=== PATIENT | male | born 1980 | race Caucasian/White ===

== ENCOUNTER 2022-12-30 12:27 | Emergency (ER) | payer MEDICAID, SELFPAY ==
[2022-12-30 12:35] VITALS: BP 132/84; PULSE 85; RESP 16; TEMP 36.8; O2SAT 99; BMI 29.1
--- NOTE | 2022-12-30 12:47 | CRLHL7_ITS ---
For Patients: As a result of the Century Cures Act, medical imaging exams and procedure reports are released immediately into your electronic medical record. You may view this report before your referring provider. If you have questions, please contact your health care provider. INDICATION: Abdominal pain, history of Ghazal and pancreatitis. TECHNIQUE: Axial images were obtained from the diaphragm to the pubic symphysis. Reformats were obtained in the coronal and sagittal plane. IV Contrast: 89 cc Isovue 370 Oral Contrast: None COMPARISON: Abdomen and pelvis CT 03/18/2021 FINDINGS: Lower chest: Noncalcified pulmonary nodule left lower lobe measuring 8 millimeters, stable compared to the prior exam (series 3, image 29). Liver: Diffusely decreased density of the liver with multiple hepatic cysts redemonstrated. Gallbladder and bile ducts: Unremarkable. No stones or inflammation. No biliary dilatation. Spleen: Unremarkable. Normal in size without mass. Pancreas: Unremarkable. No mass or inflammation. Adrenal glands: Unremarkable. No nodules. Kidneys: Unremarkable. No masses, stones, or hydronephrosis. Vasculature: Unremarkable. GI tract: The stomach is decompressed. No dilated loops of large or small intestine. Terminal ileum unremarkable. Appendix unremarkable. Pelvis: Previously noted prostatic cyst is significantly decreased in size in the range of 1-2 millimeters on today`s exam. Mild prostatic calcification. Bones: Unremarkable for age. IMPRESSION: 1. No dilated loops of large or small intestine. No localizing inflammation. 2. Moderate hepatic steatosis. Please note that all CT scans at this facility use dose modulation, iterative reconstruction, and/or weight-based dosing when appropriate to reduce radiation dose to as low as reasonably achievable. Dictated by Terrell Sousa MD @ 12/30/2022 2:12:13 PM (Electronically Signed)
--- NOTE | 2022-12-30 12:57 | ED_ITS ---
HPI - General Adult General Date Seen: 12/30/22 Chief complaint: Abdominal Pain Stated complaint: LT side into back stomach/abdomen pain Time Seen by Provider: 12/30/22 12:28 Source: patient Mode of arrival: ambulatory Limitations: no limitations History of Present Illness HPI narrative: Patient is a 42-year-old male who is status post Ghazal fundoplication in 2018. He says since then he has had periods of abdominal pain sometimes requiring hospitalization. Review of his [place] records show multiple ER visits for abdominal pain, I do not see any hospitalizations here nor any history of pancreatitis, but he does apparently also go to the ER in [place] as well as [place]. Here, he has always had normal workups, without anemia, normal CT scans, normal labs. He presents today with typical symptoms, about 1 week of some looser stools, decreased appetite, fatigue, intermittent lightheadedness, abdominal distension, couple days of worsening abdominal pain worse in the left lower quadrant. He has had occasional stools which are black in color. He has had multiple endoscopies over the years which have been unremarkable. He is maintained on a PPI. He does not drink significantly and does not take significant NSAIDs. Related Data Home Medications Medication Instructions Recorded Confirmed omeprazole 20 mg capsule,delayed 20 mg PO QDAY 12/30/22 release Allergies Allergy/AdvReac Type Severity Reaction Status Date / Time No Known Drug Allergies Allergy Verified 12/30/22 12:38 Review of Systems Status of ROS: Reports: 10 or more systems reviewed and unremarkable except as noted in History and below [facility] Social History Smoking Status: Never smoker How often do you have a drink containing alcohol: monthly or less How often do you have six or more drinks on one occasion: Never AUDIT-C Alcohol total score: 1 Non-prescribed substance use: denies use Exam Narrative: Exam Narrative: Vital signs as noted above. In general, an alert, well-appearing patient. Looks comfortable. Head: Normocephalic, atraumatic. Eyes: Pupils are equal reactive. Extraocular movements are full. Conjunctivae are normal. ENT: Mucous membranes are moist. Throat is normal. Neck: Supple without lymphadenopathy. Heart: Regular rate and rhythm. No murmur or rub. Lungs: Clear bilaterally. No increased work of breathing, crackles or wheezes. Abdomen: Soft and nondistended at this time. Seems minimally tender to palpation, no rebound guarding or rigidity. Bowel sounds present. Extremities: Well perfused. No edema. No calf tenderness. Pulses intact. Neurologic: Patient is alert and oriented to person and place. Speech is fluent. Face is symmetric. Moves all extremities equally. Affect: Normal. Skin: Warm and dry. Well perfused. Const: Vital Signs, click to edit/add: Vital Signs - 24 hr 12/30/22 12:35 12/30/22 14:07 Temperature 98.2 F Pulse Rate [Pulse Oximeter] 85 85 Respiratory Rate 16 [facility] 132/84 119/78 Pulse Oximetry 99 96 Oxygen Delivery Me thod Room Air Room Air Documenting provider has reviewed patient's vital signs: yes Course Course Hospital Course: Patient had an IV placed here was given a L of normal saline. I checked normal labs including a CBC which showed white blood cell count of 5.9, hemoglobin was stable at 15.2. Platelets normal. Other labs were essentially normal. His lipase was mildly elevated at 370 and his ALT was mildly elevated at 83 but all other labs were normal. Metabolic panel showed normal electrolytes and normal creatinine, lactate was 0.9, CRP was 0.6, remaining LFTs were normal. Urinalysis was entirely negative. CT scan by my review did not show any evidence of diverticulitis, bowel obstruction, or other significant inflammatory changes. His abdominal exam is benign. I have reviewed all of his records and he has multiple presentations to the ER with similar symptoms. His lipase is very minimally elevated, he does not have any evidence of inflammatory changes surrounding the pancreas on CT and I suspect that this does not represent kelly creatitis, but I did discuss this with him. I would recommend sticking with the bland diet are clear liquids for the next day or 2 and see how he does. If symptoms are worsening then I would have him come back to the ER for further evaluation. Otherwise, he says he has an appointment with Dr. Mora on which is 48 hours for now. He has historically followed with GI at [facility], he says the doctor he had been seeing their got and left so he does not have a specific GI doctor there. I have encouraged him to reestablish with someone there as he seems to have frequent bouts of these abdominal pain flares and I think needs to have a contact Gastroenterology as well. He also was scheduled to go to [place] tomorrow and requested a note for medical excused from the strip so that he can be reimbursed for his flight. Vital Signs Vital signs: Initial Vital Signs Temperature 98.2 F 12/30/22 12:35 Temperature Source Temporal Artery Scan 12/30/22 12:35 Pulse Rate 85 12/30/22 12:35 Respiratory Rate 16 12/30/22 12:35 Blood Pressure 132/84 12/30/22 12:35 Blood Pressure Mean 100 12/30/22 12:35 Blood Pressure Position Sitting 12/30/22 12:35 Pulse Oximetry 99 12/30/22 12:35 Oxygen Delivery Method Room Air 12/30/22 12:35 Vital Signs Temperature 98.2 F 12/30/22 12:35 Pulse Rate 85 12/30/22 12:35 Respiratory Rate 16 12/30/22 12:35 Blood Pressure 132/84 12/30/22 12:35 Pulse Oximetry 99 12/30/22 12:35 Oxygen Delivery Method Room Air 12/30/22 12:35 Temperature 98.2 F 12/30/22 12:35 Pulse Rate 85 12/30/22 14:07 Respiratory Rate 16 12/30/22 12:35 Blood Pressure 119/78 12/30/22 14:07 Pulse Oximetry 96 12/30/22 14:07 Oxygen Delivery Method Room Air 12/30/22 14:07 Medical Decision Making Lab Data Labs: Lab Results 12/30/22 12/30/22 12/30/22 Range/Units 12:48 12:55 13:00 WBC 5.88 (4.50-11.00) K/uL RBC 5.14 (4.30-5.90) m/uL Hgb 15.2 (13.5-17.5) gm/dL Hct 44.8 (37.0-53.0) % MCV 87 (80-100) fL MCH 30 (26-34) pg MCHC 34 (32-36) gm/dL RDW Coeff of Lizzette 12.9 (11.5-15.5) % Plt Count 193 (140-440) K/uL Neut % (Auto) 51.8 (42.0-72.0) % Lymph % (Auto) 37.8 (20-44) % [place] % (Auto) 7.7 (0.0-11.0) % Eos % (Auto) 2.0 (0.0-7.0) % Baso % (Auto) 0.5 (0.0-3.0) % Neut # (Auto) 3.05 (1.7-7.0) K/uL Lymph # (Auto) 2.22 (0.90-2.90) K/uL [place] # (Auto) 0.50 (0.00-0.90) K/UL Eos # (Auto) 0.12 (0.00-0.50) K/uL Baso # (Auto) 0.03 (0.00-0.30) K/uL Sodium 140 (135-149) mmol/L Potassium 4.1 (3.6-5.1) mmol/L Chloride 106 (96-114) mmol/L Carbon Dioxide 24 (20-32) mmol/L BUN 14 (5-24) mg/dL Creatinine 0.9 (0.5-1.5) mg/dL Estimated Creat Clear 94.52 Estimated GFR 108 ml/min Glucose 96 (60-115) mg/dL Lactate 0.9 (0.5-1.9) mmol/L Calcium 8.8 (8.4-10.6) mg/dL Total Bilirubin 0.6 (0.1-1.5) mg/dL Direct Bilirubin 0.2 (0.0-0.5) mg/dL AST 34 (12-35) U/L ALT 83 H (4-50) U/L Alkaline Phosphatase 55 (40-150) U/L C-Reactive Protein 0.6 (0.5-1.0) mg/dL Total Protein 7.5 (6.0-8.3) g/dL Albumin 4.5 (3.3-5.0) g/dL Lipase 370 H (23-300) U/L Urine Color Yellow (Yellow) Urine Appearance Clear (Clear) Urine pH 7.0 (5.0-8.5) Ur Specific [place] 1.020 (1.000-1.030) Urine Protein Negative (Negative) Urine Glucose (UA) Negative (Negative) Urine Ketones Negative (Negative) Urine Blood Negative (Negative) Urine Nitrite Negative (Negative) Urine Bilirubin Negative (Negative) Urine Urobilinogen 0.2 (0.2-1.0) Ur Leukocyte Esterase Negative (Negative) Urine RBC 0-2 (0-2) Urine WBC 0-2 (0-5) Ur Squamous Epith Cells Few (None-Few) Urine Bacteria None (None) Discharge Plan Discharge Clinical Impression: Abdominal pain Patient Disposition: Home, Self-Care Condition: Stable Instructions: Abdominal Pain (ED) Additional Instructions: GI follow-up for persistent symptoms; recommend re-establishing care with [facility]. See Dr. Mora on as planned. Continue current medications, okay to take your pantoprazole twice a day for the next week or so if you would like. Continue bland diet for the next several days. Advance as able. Prescriptions: No Action omeprazole 20 mg capsule,delayed release(/EC) 20 mg PO QDAY Follow Up/Referrals: Trevon Mora MD [Primary Care Provider] - Stand Alone Forms: [employer] Info Instructions
[2022-12-30 13:07] LABS: Lactate* 0.9 mmol/L (0.5-1.9)
[2022-12-30 13:23] LABS: Albumin* 4.5 g/dL (3.3-5.0); Chloride* 106 mmol/L (96-114); Sodium* 140 mmol/L (135-149)
[2022-12-30 13:24] LABS: Potassium* 4.1 mmol/L (3.6-5.1)
[2022-12-30 13:26] LABS: Appearance Urine Clear (Clear); Bilirubin Urine Negative (Negative); Blood Urine Negative (Negative); Color Urine Yellow (Yellow); Glucose Urine Negative (Negative); Ketones Urine Negative (Negative); Leukocyte Esterase Urine Negative (Negative); Nitrite Urine Negative (Negative); Protein Urine Negative (Negative); Urobilinogen Urine 0.2 (0.2-1.0)
[2022-12-30 13:26] LABS: Creatinine* 0.9 mg/dL (0.5-1.5); Est. Creatinine Clearance* 94.52; Estimated Glomerular Filt Rate 108 ml/min
[2022-12-30 13:27] LABS: Alanine Aminotransferase* 83 U/L (4-50); Alkaline Phosphatase* 55 U/L (40-150); Aspartate Amino Transferase* 34 U/L (12-35); Bilirubin Direct* 0.2 mg/dL (0.0-0.5); Bilirubin Total* 0.6 mg/dL (0.1-1.5); Blood Urea Nitrogen* 14 mg/dL (5-24); Calcium* 8.8 mg/dL (8.4-10.6); Carbon Dioxide* 24 mmol/L (20-32); Glucose* 96 mg/dL (60-115); Lipase* 370 U/L (23-300); Total Protein* 7.5 g/dL (6.0-8.3)
[2022-12-30] MEDS: 0.9 % SODIUM CHLORIDE 1000 ml 1,000 ML IV (13:27)
[2022-12-30 13:29] LABS: C Reactive Protein* 0.6 mg/dL (0.5-1.0)
[2022-12-30 13:31] LABS: Basophils Absolute Auto 0.03 K/uL (0.00-0.30); Basophils Percent Auto 0.5 % (0.0-3.0); Eosinophils Absolute Auto 0.12 K/uL (0.00-0.50); Hematocrit 44.8 % (37.0-53.0); Hemoglobin* 15.2 gm/dL (13.5-17.5); Immature Granulocytes Abs Auto 0.01 K/uL (0.00-0.30); Immature Granulocytes Pct Auto 0.2 %; Lymphocytes Absolute Auto 2.22 K/uL (0.90-2.90); Lymphocytes Percent Auto 37.8 % (20-44); Mean Corpuscular HGB Conc 34 gm/dL (32-36); Mean Corpuscular Hemoglobin 30 pg (26-34); Mean Corpuscular Volume 87 fL (80-100); Monocytes Percent Auto 7.7 % (0.0-11.0); Neutrophils Absolute Auto 3.05 K/uL (1.7-7.0); Neutrophils Percent Auto 51.8 % (42.0-72.0); Platelet Count* 193 K/uL (140-440); RDW Coefficient of Variation % 12.9 % (11.5-15.5); Red Blood Count 5.14 m/uL (4.30-5.90); White Blood Count* 5.88 K/uL (4.50-11.00)
[2022-12-30 13:37] LABS: Slide Review Reflex No
[2022-12-30 14:03] LABS: RBC Urine 0-2 (0-2); Squamous Epithelial Cell Urine Few (None-Few); WBC Urine 0-2 (0-5)
[2022-12-30 14:07] VITALS: BP 119/78; PULSE 85; O2SAT 96
--- NOTE | 2022-12-30 14:48 | ED.NURSE ---
Pt's IV was DC'd, catheter appeared intact but appeared to have a small divot on the tip of the catheter. Temporary tourniquet applied to pt's L upper arm. IV catheter shown to 's Neeraj and Franklyn, both MD's examined and cleared catheter as intact and okay. Tourniquet removed from pt L arm.
== END 2022-12-30 14:52 | disposition home or self-care (01) ==
PROVIDERS: Emergency Provider Emergency Medicine; PCP Family Medicine
DX: R10.9 Unspecified abdominal pain (principal)
CPT/HCPCS: 36415; 74177; 80048; 80076; 81001; 83605; 83690; 85025; 86140; 99283; 99284; J7030; Q9967

== ENCOUNTER 2023-04-15 14:01 | Emergency (ER) | payer MEDICAID, SELFPAY ==
[2023-04-15] VITALS (8 sets, daily range): BP systolic 120; BP diastolic 78–84; PULSE 63–78; RESP 18; TEMP 36.8; O2SAT 94–98; BMI 29.1
--- NOTE | 2023-04-15 15:11 | ED.ABDPAIN ---
HPI - Abdominal Pain General Time Seen by Provider: 15:11 Date Seen: 04/15/23 Chief Complaint: Abdominal Pain Stated Complaint: Stomach bruising Time Seen by Provider: 04/15/23 14:15 Source: patient and RN notes reviewed Mode of arrival: ambulatory Limitations: no limitations History of Present Illness HPI narrative: Patient is a 42-year-old male coming in with a bruise noted on his left anterior abdominal wall without known trauma. Noticed yesterday for sure, maybe possibly Thursday, note today is Thursday. He has not noted bleeding of his gums with brushing his teeth or any nose bleeds but does think he maybe tasted some blood when he brushed his teeth this morning. He has not noticed bruising elsewhere. He feels underlying left abdominal pain and feels bloated, no nausea vomiting or diarrhea, no urinary symptoms. He has had a Willem fundoplication surgery done years ago. He feels the pain into the left flank area. He is on no blood thinners. He does do [employer] for profession but they finish there last project last week, really has not done anything strenuous that he can recollect. He states a couple of nurses looked at this and recommended he be evaluated. MD elicited complaint: abdominal pain Related Data Home Medications Medication Instructions Recorded Confirmed omeprazole 20 mg capsule,delayed 20 mg PO QDAY 12/30/22 04/15/23 release sucralfate 1 gram tablet (Carafate) 1 g PO TID 01/01/23 04/15/23 Previous Rx's Medication Instructions Recorded metoclopramide HCl 10 mg tablet 10 mg PO BID PRN nausea and 01/01/23 vomiting #60 tabs Allergies Allergy/AdvReac Type Severity Reaction Status Date / Time No Known Drug Allergies Allergy Verified 01/01/23 10:36 Review of Systems Status of ROS Reports: 6 or more systems reviewed and unremarkable except as noted in History and below [facility] Medical History (Updated 04/15/23 @ 17:07 by Mariah Waddell MD) Chronic abdominal pain ?R10.9 - Unspecified abdominal pain (ICD-10) ?G89.29 - Other chronic pain (ICD-10) Peptic ulcer ?K27.9 - Peptic ulcer, site unspecified, unspecified as acute or chronic, without hemorrhage or perforation (ICD-10) Paraesophageal hernia ?K44.9 - Diaphragmatic hernia without obstruction or gangrene (ICD-10) Nausea and vomiting (02/06/18) ?R11.2 - Nausea with vomiting, unspecified (ICD-10) Irritable bowel syndrome (10/18/17) ?K58.9 - Irritable bowel syndrome without diarrhea (ICD-10) Gastroesophageal reflux disease ?K21.9 - Gastro-esophageal reflux disease without esophagitis (ICD-10) Anxiety and depression (07/01/17) ?F41.9 - Anxiety disorder, unspecified (ICD-10) ?F32.A - Depression, unspecified (ICD-10) Surgical History (Updated 12/31/22 @ 13:18 by Radha Izquierdo ~ PSR) History of tonsillectomy (1984) ?Z90.89 - Acquired absence of other organs (ICD-10) History of repair of hiatal hernia (2017) ?Z98.890 - Other specified postprocedural states (ICD-10) ?Z87.19 - Personal history of other diseases of the digestive system (ICD-10) History of Ghazal fundoplication (02/06/18) ?Z98.890 - Other specified postprocedural states (ICD-10) History of esophagogastroduodenoscopy (EGD) ?Z98.890 - Other specified postprocedural states (ICD-10) History of colonoscopy ?Z98.890 - Other specified postprocedural states (ICD-10) Family History (Updated 12/31/22 @ 13:22 by Radha Izquierdo ~ PSR) Mother Heart disease Father Heart disease Maternal Grandmother Stomach cancer Grandmother Diabetes Social History (Updated 12/31/22 @ 13:23 by Radha Izquierdo ~ PSR) Narrative: Single, no kids, [facility] Non-smoker Social EtOH Smoking Status: Never smoker How often do you have a drink containing alcohol: monthly or less How often do you have six or more drinks on one occasion: Never AUDIT-C Alcohol total score: 1 Non-prescribed substance use: denies use Little interest or pleasure in doing things: not at all Feeling down, depressed, or hopeless: not at all Exam Const: Vital Signs, click to edit/add: Vital Signs - 24 hr 04/15/23 14:07 04/15/23 16:21 04/15/23 16:30 Temperature 98.2 F Pulse Rate 73 78 Pulse Rate [Pulse Oximeter] 78 Respiratory Rate 18 Blood Pressure Blood Pressure [Ri ght Upper Arm] 120/78 Pulse Oximetry 95 98 94 Oxygen Delivery Me thod Room Air 04/15/23 16:31 04/15/23 16:32 04/15/23 16:45 Temperature Pulse Rate 77 78 63 Pulse Rate [Pulse Oximeter] Respiratory Rate Blood Pressure 120/79 Blood Pressure [Ri ght Upper Arm] Pulse Oximetry 97 97 98 Oxygen Delivery Me thod Documenting provider has reviewed patient's vital signs: yes Course Course Hospital Course: Patient has a bruise on his left abdomen with associated underlying left abdominal pain. He is not on any anticoagulation, does not remember any trauma. Have discussed workup and he would like to proceed with CT imaging, reviewed with him that this would require IV contrast which she is fine with. Will also get baseline labs including CBC with coags. Rule out intra-abdominal pathology, underlying hematologic issues that could cause bruising or bleeding. Reevaluation(s) Time of Reevaluation #1: 17:04 Reevaluation #1: Reviewed labs had and provided copy of patient CT. Did review his CT report. There is a small abdominal wall hematoma but no evidence of any internal bleeding. Likewise his CBC and coagulation factors reveal no evidence of abnormality. He must have done something at some point to his abdominal wall causing some trauma that he does not remember. We did review the fatty liver, it did sound as if he was aware of this. Do recommend that this be followed through his primary care provider. Vital Signs Vital signs: Initial Vital Signs Temperature 98.2 F 04/15/23 14:07 Temperature Source Temporal Artery Scan 04/15/23 14:07 Pulse Rate 78 04/15/23 14:07 Respiratory Rate 18 04/15/23 14:07 Blood Pressure 120/78 04/15/23 14:07 Blood Pressure Mean 92 04/15/23 14:07 Blood Pressure Position Supine 04/15/23 14:07 Pulse Oximetry 95 04/15/23 14:07 Oxygen Delivery Method Room Air 04/15/23 14:07 Vital Signs Temperature 98.2 F 04/15/23 14:07 Pulse Rate 78 04/15/23 14:07 Respiratory Rate 18 04/15/23 14:07 Blood Pressure 120/78 04/15/23 14:07 Pulse Oximetry 95 04/15/23 14:07 Oxygen Delivery Method Room Air 04/15/23 14:07 Temperature 98.2 F 04/15/23 14:07 Pulse Rate 63 04/15/23 16:45 Respiratory Rate 18 04/15/23 14:07 Blood Pressure 120/79 04/15/23 16:31 Pulse Oximetry 98 04/15/23 16:45 Oxygen Delivery Method Room Air 04/15/23 14:07 MDM - Abdominal Pain Lab Data Attestation: I reviewed the patient's lab results. Labs: Lab Results 04/15/23 Range/Units 15:40 WBC 6.08 (4.50-11.00) K/uL RBC 5.08 (4.30-5.90) m/uL Hgb 15.0 (13.5-17.5) gm/dL Hct 44.4 (37.0-53.0) % MCV 87 (80-100) fL MCH 30 (26-34) pg MCHC 34 (32-36) gm/dL RDW Coeff of Lizzette 12.9 (11.5-15.5) % Plt Count 191 (140-440) K/uL Neut % (Auto) 55.1 (42.0-72.0) % Lymph % (Auto) 35.0 (20-44) % [place] % (Auto) 6.4 (0.0-11.0) % Eos % (Auto) 2.6 (0.0-7.0) % Baso % (Auto) 0.7 (0.0-3.0) % Neut # (Auto) 3.35 (1.7-7.0) K/uL Lymph # (Auto) 2.13 (0.90-2.90) K/uL [place] # (Auto) 0.40 (0.00-0.90) K/UL Eos # (Auto) 0.16 (0.00-0.50) K/uL Baso # (Auto) 0.04 (0.00-0.30) K/uL Abs Immat Gran (auto) 0.01 (0.00-0.30) K/uL Imm/Tot Granulo (auto) 0.2 % INR 0.91 (0.91-1.10) APTT 31 (23-33) Seconds Sodium 139 (135-149) mmol/L Potassium 4.0 (3.6-5.1) mmol/L Chloride 107 (96-114) mmol/L Carbon Dioxide 24 (20-32) mmol/L Anion Gap 8 (7-15) mEq/L BUN 12 (5-24) mg/dL Creatinine 0.8 (0.5-1.5) mg/dL Estimated Creat Clear 106.33 Estimated GFR 112 ml/min Glucose 90 (60-115) mg/dL Total Bilirubin 0.7 (0.1-1.5) mg/dL AST 42 H (12-35) U/L ALT 77 H (4-50) U/L Alkaline Phosphatase 58 (40-150) U/L C-Reactive Protein < 0.5 L (0.5-1.0) mg/dL Total Protein 7.7 (6.0-8.3) g/dL Albumin 4.5 (3.3-5.0) g/dL Imaging Data CT scan - abdomen: Attestation: I have reviewed the pertinent imaging results. Radiologist's impression: Patient: LIZ RIVERA Facility:?[facility] Patient ID:?[id number] Site Patient ID:?[id number]. Site :?[id number] Study:?CT Abdomen/Pelvis W/89CC [id number]/23/2023 4:00:00 PM Ordering Physician:Leni Lemus Final Report: INDICATION: Left-sided abdominal pain, extensive bruising without injury. TECHNIQUE: CT abdomen and pelvis acquired with 89 cc Isovue 370 IV contrast. COMPARISON: December 30, 2022. FINDINGS: Lower chest: Scattered atelectasis. Tiny hiatal hernia. Liver: Mosaic attenuation.. No suspicious masses. Gallbladder and bile ducts: Unremarkable. No stones or inflammation. No biliary dilatation. Pancreas: Unremarkable. No mass or inflammation. Spleen: Unremarkable. Normal in size. No masses. Adrenal glands: Unremarkable. No nodules. Kidneys: Unremarkable. No suspicious masses, stones, or hydronephrosis. GI tract: Mild colonic stool burden. Normal in caliber. No sign of mass or inflammation. Normal appendix. Vasculature: Abdominal aorta is normal in caliber. Mesenteric arteries are patent. Lymph nodes: No lymphadenopathy. Peritoneum/Abdominal Wall: Subtle focal left abdominal wall inflammation, possibly hematoma. No sign of mass or infiltration. No free air or significant free fluid. Pelvis: Mild prostatomegaly. Bones: Unremarkable for age. IMPRESSION: Subtle focal left abdominal wall inflammation, possibly hematoma. Otherwise, no acute intra-abdominal/pelvic abnormality or significant interval change compared to prior study.. Hepatic steatosis. Mild colonic stool burden. Please note that all CT scans at this facility use dose modulation, iterative reconstruction, and/or weight-based dosing when appropriate to reduce radiation dose to as low as reasonably achievable. Dictated by Sahil Barnes MD @ 04/15/2023 4:56:34 PM (Electronic Signature) Critical Care Time Critical Care Time Critical Care Time: No Discharge Plan Discharge Clinical Impression: Abdominal wall hematoma Patient Disposition: Home, Self-Care Condition: Stable Instructions: Hematoma (ED) Additional Instructions: This should resolve over the next 1-2 weeks. Can use Tylenol and/or ibuprofen for any discomfort. Ice to the abdominal wall can help as well. No restrictions on activity at this point. Activity Level: No Restrictions and Activity as Tolerated Prescriptions: No Action sucralfate [Carafate] 1 gram tablet 1 g PO TID metoclopramide HCl 10 mg tablet 10 mg PO BID PRN (Reason: nausea and vomiting) Qty: 60 1RF omeprazole 20 mg capsule,delayed release(DR/EC) 20 mg PO QDAY Follow Up/Referrals: Liz Mora MD [Primary Care Provider] - Stand Alone Forms: [email or web address] Info Instructions
--- NOTE | 2023-04-15 15:18 | CRLHL7_ITS ---
For Patients: As a result of the Century Cures Act, medical imaging exams and procedure reports are released immediately into your electronic medical record. You may view this report before your referring provider. If you have questions, please contact your health care provider. INDICATION: Left-sided abdominal pain, extensive bruising without injury. TECHNIQUE: CT abdomen and pelvis acquired with 89 cc Isovue 370 IV contrast. COMPARISON: December 30, 2022. FINDINGS: Lower chest: Scattered atelectasis. Tiny hiatal hernia. Liver: Mosaic attenuation.. No suspicious masses. Gallbladder and bile ducts: Unremarkable. No stones or inflammation. No biliary dilatation. Pancreas: Unremarkable. No mass or inflammation. Spleen: Unremarkable. Normal in size. No masses. Adrenal glands: Unremarkable. No nodules. Kidneys: Unremarkable. No suspicious masses, stones, or hydronephrosis. GI tract: Mild colonic stool burden. Normal in caliber. No sign of mass or inflammation. Normal appendix. Vasculature: Abdominal aorta is normal in caliber. Mesenteric arteries are patent. Lymph nodes: No lymphadenopathy. Peritoneum/Abdominal Wall: Subtle focal left abdominal wall inflammation, possibly hematoma. No sign of mass or infiltration. No free air or significant free fluid. Pelvis: Mild prostatomegaly. Bones: Unremarkable for age. IMPRESSION: Subtle focal left abdominal wall inflammation, possibly hematoma. Otherwise, no acute intra-abdominal/pelvic abnormality or significant interval change compared to prior study.. Hepatic steatosis. Mild colonic stool burden. Please note that all CT scans at this facility use dose modulation, iterative reconstruction, and/or weight-based dosing when appropriate to reduce radiation dose to as low as reasonably achievable. Dictated by Sahil Barnes MD @ 04/15/2023 4:56:34 PM (Electronically Signed)
[2023-04-15 15:48] LABS: Basophils Absolute Auto 0.04 K/uL (0.00-0.30); Basophils Percent Auto 0.7 % (0.0-3.0); Eosinophils Absolute Auto 0.16 K/uL (0.00-0.50); Eosinophils Percent Auto 2.6 % (0.0-7.0); Hematocrit 44.4 % (37.0-53.0); Immature Granulocytes Abs Auto 0.01 K/uL (0.00-0.30); Immature Granulocytes Pct Auto 0.2 %; Lymphocytes Absolute Auto 2.13 K/uL (0.90-2.90); Mean Corpuscular HGB Conc 34 gm/dL (32-36); Mean Corpuscular Hemoglobin 30 pg (26-34); Mean Corpuscular Volume 87 fL (80-100); Monocytes Percent Auto 6.4 % (0.0-11.0); Neutrophils Absolute Auto 3.35 K/uL (1.7-7.0); Neutrophils Percent Auto 55.1 % (42.0-72.0); Platelet Count* 191 K/uL (140-440); RDW Coefficient of Variation % 12.9 % (11.5-15.5); Red Blood Count 5.08 m/uL (4.30-5.90); White Blood Count* 6.08 K/uL (4.50-11.00)
[2023-04-15 15:54] LABS: Slide Review Reflex No
[2023-04-15 16:03] LABS: Albumin* 4.5 g/dL (3.3-5.0); Chloride* 107 mmol/L (96-114); Sodium* 139 mmol/L (135-149)
[2023-04-15 16:05] LABS: INR 0.91 (0.91-1.10); Prothrombin Time 12.8 Seconds
[2023-04-15 16:06] LABS: Anion Gap 8 mEq/L (7-15); Carbon Dioxide* 24 mmol/L (20-32); Creatinine* 0.8 mg/dL (0.5-1.5); Est. Creatinine Clearance* 106.33; Estimated Glomerular Filt Rate 112 ml/min; Partial Thromboplastin Time* 31 Seconds (23-33)
[2023-04-15 16:07] LABS: Alanine Aminotransferase* 77 U/L (4-50); Alkaline Phosphatase* 58 U/L (40-150); Aspartate Amino Transferase* 42 U/L (12-35); Bilirubin Total* 0.7 mg/dL (0.1-1.5); Blood Urea Nitrogen* 12 mg/dL (5-24); Glucose* 90 mg/dL (60-115); Total Protein* 7.7 g/dL (6.0-8.3)
[2023-04-15 16:11] LABS: C Reactive Protein* < 0.5 mg/dL (0.5-1.0)
[2023-04-17 15:02] LABS: Calcium* 8.8 mg/dL (8.4-10.6)
== END 2023-04-15 17:17 | disposition home or self-care (01) ==
PROVIDERS: Emergency Provider Family Medicine; PCP Family Medicine
DX: S30.1XXA Contusion of abdominal wall, initial encounter (principal)
CPT/HCPCS: 36415; 74177; 80053; 85025; 85610; 85730; 86140; 99283; 99284; Q9967

== ENCOUNTER 2023-07-29 08:11 | Outpatient (CLI) | payer MEDICAID, SELFPAY ==
--- NOTE | 2023-07-29 08:15 | CRLHL7_ITS ---
For Patients: As a result of the Century Cures Act, medical imaging exams and procedure reports are released immediately into your electronic medical record. You may view this report before your referring provider. If you have questions, please contact your health care provider. INDICATION: Cervical radiculopathy. TECHNIQUE: Multisequence MRI of the cervical spine without contrast. COMPARISON: None available. FINDINGS: Normal alignment. Vertebral body heights are maintained. Bone marrow signal intensity is within normal limits. Mild multilevel intervertebral disc height loss most pronounced at C5-C6. The cervical spinal cord is normal in signal intensity. The paraspinal soft tissues are unremarkable. Evaluation of the individual levels demonstrates: C2-C3 and C3-C4: No significant spinal canal or neural foraminal stenosis. C4-C5: Shallow symmetric disc bulge. No significant spinal canal or right neural foraminal narrowing. Mild left neural foraminal narrowing as sequela of uncovertebral hypertrophy. C5-C6: Small posterior disc osteophyte complex. Mild right and moderate left neural foraminal narrowing resulting from combined uncovertebral and facet joint arthrosis. C6-C7 and C7-T1: No significant spinal canal or neural foraminal stenosis. IMPRESSION: 1. Normal alignment with mild multilevel intervertebral disc height loss most pronounced at C5-C6. 2. Normal signal intensity of the cervical spinal cord with no significant spinal canal stenosis. 3. At C5-C6, moderate left neural foraminal narrowing. Dictated by Luis Armando Taylor MD @ 07/29/2023 4:25:20 PM (Electronically Signed)
== END 2023-07-29 08:12 | disposition home or self-care (01) ==
PROVIDERS: PCP Family Medicine; Visit Provider Family Medicine
DX: M54.12 Radiculopathy, cervical region (principal); M50.222 Other cervical disc displacement at C5-C6 level
CPT/HCPCS: 72141

== ENCOUNTER 2023-10-18 14:54 | Emergency (ER) | payer MEDICAID, SELFPAY ==
[2023-10-18 14:57] VITALS: BP 162/82; PULSE 87; RESP 20; TEMP 37; O2SAT 96; BMI 29.1
--- NOTE | 2023-10-18 15:07 | CT_ITS ---
Patient: LIZ RIVERA Facility:?[facility] Patient ID:?[id number] Site Patient ID:?[id number]. Site :?[id number] Study:?CT-Abdomen/Pelvis W/ 89CC [id number]/25/2024 3:31:44 PM Ordering Physician:Marc Barlow Final Report: INDICATION: Abdominal pain. TECHNIQUE: Multiple axial images were obtained from the diaphragm to symphysis pubis after administration of 89 mL is of Isovue-370 intravenously. Sagittal and coronal re- formatted images were obtained. COMPARISON: 04/14/2023 and 12/30/2022. FINDINGS: The visualized portion of the lung bases are clear. The liver is diffuse decreased attenuation consistent with fatty infiltration of the liver. There are stable cysts in the left lobe liver. The spleen, pancreas, gallbladder and adrenal glands are unremarkable. There is no mass or hydronephrosis in the kidneys. There is no evidence of a bowel obstruction. The appendix is unremarkable. The abdominal aorta is normal in caliber. There is no adenopathy. There is no free fluid in the abdomen or pelvis. IMPRESSION: No acute abnormality. Fatty infiltration of the liver. Hepatic cysts. Please note that all CT scans at this facility use dose modulation, iterative reconstruction, and/or weight-based dosing when appropriate to reduce radiation dose to as low as reasonably achievable. Dictated by Jeramie Montague MD @ 10/18/2023 4:00:46 PM Signed by:?Jeramie Montague MD @10/18/2023 4:00:46 PM (Electronic Signature)
--- NOTE | 2023-10-18 15:15 | ED.GENADULT ---
HPI - General Adult General Chief complaint: Abdominal Pain <López Barlow MD - Last Filed: 10/18/23 15:23> Stated complaint: Abdominal pain <López Barlow MD - Last Filed: 10/18/23 15:23> Time Seen by Provider: 10/18/23 15:01 <López Barlow MD - Last Filed: 10/18/23 15:23> History of Present Illness HPI narrative: 42-year-old male with chronic abdominal pain, who has had endoscopies, and a history of what he describes as ulcers in his stomach. He presents with abdominal pain on the left side of his abdomen been bad for few days, he denies bowel or bladder change denies vomiting blood he has not really had pancreatitis in the past by my review his chart. He has had medical care and [facility]. He typically gets bouts of this pain intermittently and will be quite significant he has a history of paraesophageal hernia and GE reflux. He reports his reflux has been quite significantly and he feels like he is ?choking and diff ?on his stomach acid. He is talking in full in labored unlabored sentences time. He reports today as pain around his left side of his abdomen radiating to his back and up to his left lower chest and down into his left thigh. He has had no weight loss, fevers, chills, blood in his stool or blood in vomit. He is on a proton pump inhibitor. <López Barlow MD - Last Filed: 10/18/23 15:23> Related Data Home medications: Home Medications Medication Instructions Recorded Confirmed omeprazole 20 mg capsule,delayed 20 mg PO QDAY 12/30/22 10/01/23 release sucralfate 1 gram tablet (Carafate) 1 g PO TID 01/01/23 10/01/23 Previous Rx's Medication Instructions Recorded metoclopramide HCl 10 mg tablet 10 mg PO BID PRN nausea and 01/01/23 vomiting #60 tabs celecoxib 200 mg capsule (Celebrex) 200 mg PO BID #60 caps 07/21/23 fluticasone propionate 50 1 spray intranasal Q12H #16 grams 08/06/23 mcg/actuation nasal spray,suspension levocetirizine 5 mg tablet 5 mg PO QPM allergy symptoms #30 08/06/23 tabs <López Barlow MD - Last Filed: 10/18/23 15:23> Allergies/adverse reactions: Allergies Allergy/AdvReac Type Severity Reaction Status Date / Time No Known Drug Allergies Allergy Verified 10/18/23 15:32 <López Barlow MD - Last Filed: 10/18/23 15:23> Review of Systems Status of ROS: Reports: 6 or more systems reviewed and unremarkable except as noted in History and below <López Barlow MD - Last Filed: 10/18/23 15:23> [facility] Medical History: Medical History Chronic abdominal pain ?R10.9 - Unspecified abdominal pain (ICD-10) ?G89.29 - Other chronic pain (ICD-10) Peptic ulcer ?K27.9 - Peptic ulcer, site unspecified, unspecified as acute or chronic, without hemorrhage or perforation (ICD-10) Paraesophageal hernia ?K44.9 - Diaphragmatic hernia without obstruction or gangrene (ICD-10) Nausea and vomiting (02/06/18) ?R11.2 - Nausea with vomiting, unspecified (ICD-10) Irritable bowel syndrome (10/18/17) ?K58.9 - Irritable bowel syndrome without diarrhea (ICD-10) Gastroesophageal reflux disease ?K21.9 - Gastro-esophageal reflux disease without esophagitis (ICD-10) Anxiety and depression (07/01/17) ?F41.9 - Anxiety disorder, unspecified (ICD-10) ?F32.A - Depression, unspecified (ICD-10) <López Barlow MD - Last Filed: 10/18/23 15:23> Surgical History: Surgical History History of tonsillectomy (1984) ?Z90.89 - Acquired absence of other organs (ICD-10) History of repair of hiatal hernia (2017) ?Z98.890 - Other specified postprocedural states (ICD-10) ?Z87.19 - Personal history of other diseases of the digestive system (ICD-10) History of Ghazal fundoplication (02/06/18) ?Z98.890 - Other specified postprocedural states (ICD-10) History of esophagogastroduodenoscopy (EGD) ?Z98.890 - Other specified postprocedural states (ICD-10) History of colonoscopy ?Z98.890 - Other specified postprocedural states (ICD-10) <López Barlow MD - Last Filed: 10/18/23 15:23> Family History: Family History Mother Heart disease Father Heart disease Maternal Grandmother Stomach cancer Grandmother Diabetes <López Barlow MD - Last Filed: 10/18/23 15:23> Social History: Social History Narrative: Single, no kids, City of [place], Non-smoker, Social EtOH What is your current living situation?: I presently have a place to live Problems where you live: no known problems In the past 12 months, utilities in danger of being shut off: no In past 12 months, lack of transportation kept you from medical appts, meetings, work, or getting things needed for daily living: no In the past 12 mos, have been you worried that your food would run out before you had money to buy more?: never true In the past 12 mos, the food you bought just didn't last and you didn't have money to buy more?: never true Smoking Status: Never smoker How often do you have a drink containing alcohol: monthly or less How often do you have six or more drinks on one occasion: Never AUDIT-C Alcohol total score: 1 Non-prescribed substance use: denies use How often does anyone, including family, friends and others, physically hurt you: never How often does anyone, including family, friends and others, insult or talk down to you: never How often does anyone, including family, friends and others, threaten you with harm: never How often does anyone, including family, friends and others, scream or curse at you: never Little interest or pleasure in doing things: not at all Feeling down, depressed, or hopeless: not at all <López Barlow MD - Last Filed: 10/18/23 15:23> Exam Narrative: Exam Narrative: Objective: Patient's vital signs are within normal limits other than the slightly hypertensive He is alert orient x3, noncyanotic, no evidence of scleral icterus HEENT unremarkable neck is supple chest is clear pulse regular abdomen nontender no masses no peritonitis extremities are no edema neurologic nonfocal. Skin is well perfused and warm and dry. <López Barlow MD - Last Filed: 10/18/23 15:23> Const: Vital Signs, click to edit/add: Vital Signs - 24 hr 10/18/23 14:57 10/18/23 15:45 Temperature 98.6 F Pulse Rate 93 Pulse Rate [Pulse Oximeter] 87 Respiratory Rate 20 Blood Pressure [Ri ght Upper Arm] 162/82 H Pulse Oximetry 96 93 Oxygen Delivery Me thod Room Air <López Barlow MD - Last Filed: 10/18/23 15:23> Vital Signs, click to edit/add: Vital Signs - 24 hr 10/18/23 14:57 10/18/23 15:45 Temperature 98.6 F Pulse Rate 93 Pulse Rate [Pulse Oximeter] 87 Respiratory Rate 20 Blood Pressure [Ri ght Upper Arm] 162/82 H Pulse Oximetry 96 93 Oxygen Delivery Me thod Room Air <Jefferson Merrill DO - Last Filed: 10/18/23 16:58> Course Vital Signs Vital signs: Initial Vital Signs Temperature 98.6 F 10/18/23 14:57 Temperature Source Temporal Artery Scan 10/18/23 14:57 Pulse Rate 87 10/18/23 14:57 Respiratory Rate 20 10/18/23 14:57 Blood Pressure 162/82 H 10/18/23 14:57 Blood Pressure Mean 108 H 10/18/23 14:57 Blood Pressure Position Sitting 10/18/23 14:57 Pulse Oximetry 96 10/18/23 14:57 Oxygen Delivery Method Room Air 10/18/23 14:57 Vital Signs Temperature 98.6 F 10/18/23 14:57 Pulse Rate 87 10/18/23 14:57 Respiratory Rate 20 10/18/23 14:57 Blood Pressure 162/82 H 10/18/23 14:57 Pulse Oximetry 96 10/18/23 14:57 Oxygen Delivery Method Room Air 10/18/23 14:57 Temperature 98.6 F 10/18/23 14:57 Pulse Rate 93 10/18/23 15:45 Respiratory Rate 20 10/18/23 14:57 Blood Pressure 162/82 H 10/18/23 14:57 Pulse Oximetry 93 10/18/23 15:45 Oxygen Delivery Method Room Air 10/18/23 14:57 <López Barlow MD - Last Filed: 10/18/23 15:23> Initial Vital Signs Temperature 98.6 F 10/18/23 14:57 Temperature Source Temporal Artery Scan 10/18/23 14:57 Pulse Rate 87 10/18/23 14:57 Respiratory Rate 20 10/18/23 14:57 Blood Pressure 162/82 H 10/18/23 14:57 Blood Pressure Mean 108 H 10/18/23 14:57 Blood Pressure Position Sitting 10/18/23 14:57 Pulse Oximetry 96 10/18/23 14:57 Oxygen Delivery Method Room Air 10/18/23 14:57 Vital Signs Temperature 98.6 F 10/18/23 14:57 Pulse Rate 87 10/18/23 14:57 Respiratory Rate 20 10/18/23 14:57 Blood Pressure 162/82 H 10/18/23 14:57 Pulse Oximetry 96 10/18/23 14:57 Oxygen Delivery Method Room Air 10/18/23 14:57 Temperature 98.6 F 10/18/23 14:57 Pulse Rate 93 10/18/23 15:45 Respiratory Rate 20 10/18/23 14:57 Blood Pressure 162/82 H 10/18/23 14:57 Pulse Oximetry 93 10/18/23 15:45 Oxygen Delivery Method Room Air 10/18/23 14:57 <Jefefrson Merrill DO - Last Filed: 10/18/23 16:58> Medications Administered Medications: Discontinued Medications Generic Name Dose Route Start Last Admin Trade Name Freq PRN Reason Stop Dose Admin Hydromorphone HCl 0.5 mg 10/18/23 15:07 10/18/23 15:39 Hydromorphone 0.5 Mg/0.5 Ml Inj IVP 10/18/23 15:08 0.5 mg ONCE ONE Administration Sodium Chloride 1,000 mls @ 6,000 mls/hr 10/18/23 15:15 10/18/23 16:33 0.9 % Sodium Chloride 1000 Ml IV 10/18/23 15:24 Infused .Q10M JAVIER Infusion Lorazepam 1 mg 10/18/23 15:07 10/18/23 15:39 Lorazepam 2 Mg/Ml Inj IVP 10/18/23 15:08 1 mg ONCE ONE Administration Pantoprazole Sodium 40 mg 10/18/23 15:07 10/18/23 15:39 Pantoprazole Sodium 40 Mg Inj IVP 10/18/23 15:08 40 mg ONCE ONE Administration <López Barlow MD - Last Filed: 10/18/23 15:23> Discontinued Medications Generic Name Dose Route Start Last Admin Trade Name Sachinq PRN Reason Stop Dose Admin Hydromorphone HCl 0.5 mg 10/18/23 15:07 10/18/23 15:39 Hydromorphone 0.5 Mg/0.5 Ml Inj IVP 10/18/23 15:08 0.5 mg ONCE ONE Administration Sodium Chloride 1,000 mls @ 6,000 mls/hr 10/18/23 15:15 10/18/23 16:33 0.9 % Sodium Chloride 1000 Ml IV 10/18/23 15:24 Infused .Q10M JAVIER Infusion Lorazepam 1 mg 10/18/23 15:07 10/18/23 15:39 Lorazepam 2 Mg/Ml Inj IVP 10/18/23 15:08 1 mg ONCE ONE Administration Pantoprazole Sodium 40 mg 10/18/23 15:07 10/18/23 15:39 Pantoprazole Sodium 40 Mg Inj IVP 10/18/23 15:08 40 mg ONCE ONE Administration <Jefferson Merrill DO - Last Filed: 10/18/23 16:58> Medical Decision Making MDM Narrative Medical decision making narrative: 42-year-old male with chronic abdominal pain history of GE reflux, irritable bowel syndrome, what he describes as peptic ulcer disease. At this point he is describing pain is left abdomen radiating to his chest and left anterior thigh not sure anatomically that makes sense, but I think it be mcclure to get an EKG which today shows normal sinus rhythm, incomplete right bundle-branch block he might have a left anterior fascicular block as well, will get a troponin level from the lab, electrolytes, will give him IV Protonix IV fluid, IV dilaudid and Ativan patient when asked if he would like to pursue full workup today he does wish to do that will schedule him for an EGD as an outpatient upcoming per his request I think that is reasonable given his history of reflux and ulcers secondly I think it be reasonable to get a CT scan of his abdomen and pelvis make sure there is no other pathology going on will check the EKG and troponin as mentioned above. <López Barlow MD - Last Filed: 10/18/23 15:23> Patient was signed out to me by Dr. Barlow pending troponin and CT scan read. His troponin was within normal limits. EKG appears similar previous EKGs on file CT scan returned showing no concerning abnormalities. There were hepatic cysts seen which I informed him about. Patient is otherwise doing well. Has an EGD scheduled and they will call him tomorrow. Patient is agreeable with discharge <Jefferson Merrill DO - Last Filed: 10/18/23 16:58> Lab Data Labs: Lab Results 10/18/23 Range/Units 15:10 WBC 6.76 (4.50-11.00) K/uL RBC 4.98 (4.30-5.90) m/uL Hgb 14.7 (13.5-17.5) gm/dL Hct 43.3 (37.0-53.0) % MCV 87 (80-100) fL MCH 30 (26-34) pg MCHC 34 (32-36) gm/dL RDW Coeff of Lizzette 12.9 (11.5-15.5) % Plt Count 197 (140-440) K/uL Neut % (Auto) 49.7 (42.0-72.0) % Lymph % (Auto) 40.5 (20-44) % Brewster % (Auto) 6.5 (0.0-11.0) % Eos % (Auto) 2.8 (0.0-7.0) % Baso % (Auto) 0.4 (0.0-3.0) % Neut # (Auto) 3.35 (1.7-7.0) K/uL Lymph # (Auto) 2.74 (0.90-2.90) K/uL Brewster # (Auto) 0.40 (0.00-0.90) K/UL Eos # (Auto) 0.19 (0.00-0.50) K/uL Baso # (Auto) 0.03 (0.00-0.30) K/uL Abs Immat Gran (auto) 0.01 (0.00-0.30) K/uL Imm/Tot Granulo (auto) 0.1 % Sodium 138 (135-149) mmol/L Potassium 3.7 (3.6-5.1) mmol/L Chloride 104 (96-114) mmol/L Carbon Dioxide 24 (20-32) mmol/L Anion Gap 10 (7-15) mEq/L BUN 13 (5-24) mg/dL Creatinine 0.9 (0.5-1.5) mg/dL Estimated Creat Clear 94.52 Estimated GFR 108 ml/min Glucose 104 (60-115) mg/dL Calcium 9.4 (8.4-10.6) mg/dL Total Bilirubin 0.5 (0.1-1.5) mg/dL Direct Bilirubin 0.2 (0.0-0.5) mg/dL AST 32 (12-35) U/L ALT 75 H (4-50) U/L Alkaline Phosphatase 70 (40-150) U/L Troponin I < 0.01 L (0.01-0.04) ng/mL C-Reactive Protein < 0.5 L (0.5-1.0) mg/dL Total Protein 7.4 (6.0-8.3) g/dL Albumin 4.3 (3.3-5.0) g/dL Amylase 83 (18-89) U/L <López Barlow MD - Last Filed: 10/18/23 15:23> Lab Results 10/18/23 Range/Units 15:10 WBC 6.76 (4.50-11.00) K/uL RBC 4.98 (4.30-5.90) m/uL Hgb 14.7 (13.5-17.5) gm/dL Hct 43.3 (37.0-53.0) % MCV 87 (80-100) fL MCH 30 (26-34) pg MCHC 34 (32-36) gm/dL RDW Coeff of Lizzette 12.9 (11.5-15.5) % Plt Count 197 (140-440) K/uL Neut % (Auto) 49.7 (42.0-72.0) % Lymph % (Auto) 40.5 (20-44) % Brewster % (Auto) 6.5 (0.0-11.0) % Eos % (Auto) 2.8 (0.0-7.0) % Baso % (Auto) 0.4 (0.0-3.0) % Neut # (Auto) 3.35 (1.7-7.0) K/uL Lymph # (Auto) 2.74 (0.90-2.90) K/uL Brewster # (Auto) 0.40 (0.00-0.90) K/UL Eos # (Auto) 0.19 (0.00-0.50) K/uL Baso # (Auto) 0.03 (0.00-0.30) K/uL Abs Immat Gran (auto) 0.01 (0.00-0.30) K/uL Imm/Tot Granulo (auto) 0.1 % Sodium 138 (135-149) mmol/L Potassium 3.7 (3.6-5.1) mmol/L Chloride 104 (96-114) mmol/L Carbon Dioxide 24 (20-32) mmol/L Anion Gap 10 (7-15) mEq/L BUN 13 (5-24) mg/dL Creatinine 0.9 (0.5-1.5) mg/dL Estimated Creat Clear 94.52 Estimated GFR 108 ml/min Glucose 104 (60-115) mg/dL Calcium 9.4 (8.4-10.6) mg/dL Total Bilirubin 0.5 (0.1-1.5) mg/dL Direct Bilirubin 0.2 (0.0-0.5) mg/dL AST 32 (12-35) U/L ALT 75 H (4-50) U/L Alkaline Phosphatase 70 (40-150) U/L Troponin I < 0.01 L (0.01-0.04) ng/mL C-Reactive Protein < 0.5 L (0.5-1.0) mg/dL Total Protein 7.4 (6.0-8.3) g/dL Albumin 4.3 (3.3-5.0) g/dL Amylase 83 (18-89) U/L <Jefferson Merrill, - Last Filed: 10/18/23 16:58> Imaging Data CT scan abdomen and pelvis: Radiologist's impression: No acute abnormality. Fatty infiltration of the liver. Hepatic cysts. Please note that all CT scans at this facility use dose modulation, iterative reconstruction, and/or weight-based dosing when appropriate to reduce radiation dose to as low as reasonably achievable. Dictated by Jeramie Montague MD @ 10/18/2023 4:00:46 PM <Jefferson Merrill DO - Last Filed: 10/18/23 16:58> ECG Data Attestation: I personally reviewed and interpreted this ECG as follows: <Jefferson Merrill DO - Last Filed: 10/18/23 16:58> Prior ECG tracings: available for review <Jefferson Merrill DO - Last Filed: 10/18/23 16:58> Interpretation: normal sinus rhythm with rate of 82 beats per minute, normal intervals, left axis, incomplete right bundle-branch block, no ST or T-wave abnormalities seen. Appears similar to previous EKGs on file <Jefferson Merrill DO - Last Filed: 10/18/23 16:58> Discharge Plan Discharge Clinical Impression: Abdominal pain, Chest pain, Irritable bowel syndrome <López Barlow MD - Last Filed: 10/18/23 15:23> Patient Disposition: Home w/ Parent or Adult <López Barlow MD - Last Filed: 10/18/23 15:23> Condition: Improved <López Barlow MD - Last Filed: 10/18/23 15:23> Instructions: Abdominal Pain (ED) <López Barlow MD - Last Filed: 10/18/23 15:23> Additional Instructions: Light activity, light diet, continue his home medications, will be contacted regarding an EGD for your reflux symptoms. Follow-up with regular doctor in the next few days. Return to the ED as needed. the CT scan did show some hepatic cyst. If you are not aware of these before it is reasonable to follow up with the primary care provider about them. <López Barlow MD - Last Filed: 10/18/23 15:23> Activity Level: Light activity <López Barlow MD - Last Filed: 10/18/23 15:23> Light activity <Jefferson Merrill DO - Last Filed: 10/18/23 16:58> Discharge Diet: Full Liquid <López Barlow MD - Last Filed: 10/18/23 15:23> Full Liquid <Jefferson Merrill DO - Last Filed: 10/18/23 16:58> Diet Detail: Dance diet as tolerated to soft <López Barlow MD - Last Filed: 10/18/23 15:23> Dance diet as tolerated to soft <Jefferson Merrill DO - Last Filed: 10/18/23 16:58> Prescriptions: No Action sucralfate [Carafate] 1 gram tablet 1 g PO TID metoclopramide HCl 10 mg tablet 10 mg PO BID PRN (Reason: nausea and vomiting) Qty: 60 1RF celecoxib [Celebrex] 200 mg capsule 200 mg PO BID Qty: 60 1RF fluticasone propionate 50 mcg/actuation spray,suspension 1 spray intranasal Q12H Qty: 16 0RF Rx Instructions: administer into each nostril levocetirizine 5 mg tablet 5 mg PO QPM Qty: 30 0RF omeprazole 20 mg capsule,delayed release(DR/EC) 20 mg PO QDAY <López Barlow MD - Last Filed: 10/18/23 15:23> Follow Up/Referrals: Trevon Mora MD [Primary Care Provider] - <López Barlow MD - Last Filed: 10/18/23 15:23> Stand Alone Forms: [facility] Info Instructions <López Barlow MD - Last Filed: 10/18/23 15:23>
[2023-10-18 15:29] LABS: Basophils Absolute Auto 0.03 K/uL (0.00-0.30); Basophils Percent Auto 0.4 % (0.0-3.0); Eosinophils Absolute Auto 0.19 K/uL (0.00-0.50); Eosinophils Percent Auto 2.8 % (0.0-7.0); Hematocrit 43.3 % (37.0-53.0); Hemoglobin* 14.7 gm/dL (13.5-17.5); Immature Granulocytes Abs Auto 0.01 K/uL (0.00-0.30); Immature Granulocytes Pct Auto 0.1 %; Lymphocytes Absolute Auto 2.74 K/uL (0.90-2.90); Lymphocytes Percent Auto 40.5 % (20-44); Mean Corpuscular HGB Conc 34 gm/dL (32-36); Mean Corpuscular Hemoglobin 30 pg (26-34); Mean Corpuscular Volume 87 fL (80-100); Monocytes Percent Auto 6.5 % (0.0-11.0); Neutrophils Absolute Auto 3.35 K/uL (1.7-7.0); Neutrophils Percent Auto 49.7 % (42.0-72.0); Platelet Count* 197 K/uL (140-440); RDW Coefficient of Variation % 12.9 % (11.5-15.5); Red Blood Count 4.98 m/uL (4.30-5.90); White Blood Count* 6.76 K/uL (4.50-11.00)
[2023-10-18 15:31] LABS: Slide Review Reflex No
[2023-10-18] MEDS: PANTOPRAZOLE SODIUM 40 MG INJ IVP (15:39)
[2023-10-18] MEDS: HYDROmorphone 0.5 mg/0.5 ml inj IVP (15:39)
[2023-10-18] MEDS: 0.9 % SODIUM CHLORIDE 1000 ml 1,000 ML 6000 ML IV (15:39)
[2023-10-18] MEDS: LORazepam 2 MG/ML inj 1 MG IVP (15:39)
[2023-10-18 15:45] VITALS: PULSE 93; O2SAT 93
[2023-10-18 15:51] LABS: Albumin* 4.3 g/dL (3.3-5.0); Chloride* 104 mmol/L (96-114); Sodium* 138 mmol/L (135-149)
[2023-10-18 15:52] LABS: Potassium* 3.7 mmol/L (3.6-5.1)
[2023-10-18 15:54] LABS: Amylase* 83 U/L (18-89)
[2023-10-18 15:55] LABS: Alanine Aminotransferase* 75 U/L (4-50); Alkaline Phosphatase* 70 U/L (40-150); Anion Gap 10 mEq/L (7-15); Aspartate Amino Transferase* 32 U/L (12-35); Bilirubin Direct* 0.2 mg/dL (0.0-0.5); Bilirubin Total* 0.5 mg/dL (0.1-1.5); Blood Urea Nitrogen* 13 mg/dL (5-24); Calcium* 9.4 mg/dL (8.4-10.6); Carbon Dioxide* 24 mmol/L (20-32); Creatinine* 0.9 mg/dL (0.5-1.5); Est. Creatinine Clearance* 94.52; Estimated Glomerular Filt Rate 108 ml/min; Glucose* 104 mg/dL (60-115); Total Protein* 7.4 g/dL (6.0-8.3)
[2023-10-18 15:59] LABS: C Reactive Protein* < 0.5 mg/dL (0.5-1.0)
[2023-10-18 16:44] LABS: Troponin I* < 0.01 ng/mL (0.01-0.04)
[2023-10-18 17:06] VITALS: BP 135/89; PULSE 86; RESP 16; O2SAT 98
== END 2023-10-18 17:07 | disposition home or self-care (01) ==
PROVIDERS: Family Medicine; Emergency Provider Student in an Organized Health Care Education/Training Program; PCP Family Medicine
DX: R10.9 Unspecified abdominal pain (principal); R07.9 Chest pain, unspecified; K58.9 Irritable bowel syndrome, unspecified
CPT/HCPCS: 36415; 74177; 80048; 80076; 82150; 84484; 85025; 86140; 96374; 96375; 99283; 99284; C9113; J1170; J2060; J7030; Q9967

== ENCOUNTER 2023-10-20 17:13 | Emergency (ER) | payer MEDICAID, SELFPAY ==
[2023-10-20 17:23] VITALS: BP 126/77; PULSE 80; RESP 18; TEMP 36.9; O2SAT 96; BMI 29.1
--- NOTE | 2023-10-20 18:43 | PC.NURSE ---
Patient left AMA. Patient did not state why he was leaving.
--- NOTE | 2023-10-20 18:44 | ED_ITS ---
HPI - Abdominal Pain General Date Seen: 10/20/23 Chief Complaint: Abdominal Pain Stated Complaint: Severe Abdominal pain under ribs left side Time Seen by Provider: 10/20/23 18:07 Source: patient Mode of arrival: ambulatory Limitations: no limitations History of Present Illness HPI narrative: Patient is a 42-year-old male presenting for left upper quadrant pain. He has been having this pain since Thursday and was seen in our emergency department on Thursday. At that time he had full workup done showing no concerning abnormalities. Get an EGD scheduled for next Thursday. States the pain is continues he came back to emergency department to be re-evaluated. He does have chronic abdominal pain as have multiple endoscopies and past. States he has had some nausea but is not currently nauseated. Has been eating and drinking without issue. States all pain medicines left upper quadrant right underneath his ribs. Denies having pain like this prior to this past week. Denies weight loss, fevers, chills, melena, hematochezia, chest pain, shortness of breath. Has not had any vomiting. Related Data Home Medications Medication Instructions Recorded Confirmed omeprazole 20 mg capsule,delayed 20 mg PO QDAY 12/30/22 10/01/23 release sucralfate 1 gram tablet (Carafate) 1 g PO TID 01/01/23 10/01/23 Previous Rx's Medication Instructions Recorded metoclopramide HCl 10 mg tablet 10 mg PO BID PRN nausea and 01/01/23 vomiting #60 tabs celecoxib 200 mg capsule (Celebrex) 200 mg PO BID #60 caps 07/21/23 fluticasone propionate 50 1 spray intranasal Q12H #16 grams 08/06/23 mcg/actuation nasal spray,suspension levocetirizine 5 mg tablet 5 mg PO QPM allergy symptoms #30 08/06/23 tabs Allergies Allergy/AdvReac Type Severity Reaction Status Date / Time No Known Drug Allergies Allergy Verified 10/18/23 15:32 Review of Systems Status of ROS Reports: 10 or more systems reviewed and unremarkable except as noted in History and below [facility] Medical History Chronic abdominal pain ?R10.9 - Unspecified abdominal pain (ICD-10) ?G89.29 - Other chronic pain (ICD-10) Peptic ulcer ?K27.9 - Peptic ulcer, site unspecified, unspecified as acute or chronic, without hemorrhage or perforation (ICD-10) Paraesophageal hernia ?K44.9 - Diaphragmatic hernia without obstruction or gangrene (ICD-10) Nausea and vomiting (02/06/18) ?R11.2 - Nausea with vomiting, unspecified (ICD-10) Irritable bowel syndrome (10/18/17) ?K58.9 - Irritable bowel syndrome without diarrhea (ICD-10) Gastroesophageal reflux disease ?K21.9 - Gastro-esophageal reflux disease without esophagitis (ICD-10) Anxiety and depression (07/01/17) ?F41.9 - Anxiety disorder, unspecified (ICD-10) ?F32.A - Depression, unspecified (ICD-10) Surgical History History of tonsillectomy (1984) ?Z90.89 - Acquired absence of other organs (ICD-10) History of repair of hiatal hernia (2017) ?Z98.890 - Other specified postprocedural states (ICD-10) ?Z87.19 - Personal history of other diseases of the digestive system (ICD-10) History of Ghazal fundoplication (02/06/18) ?Z98.890 - Other specified postprocedural states (ICD-10) History of esophagogastroduodenoscopy (EGD) ?Z98.890 - Other specified postprocedural states (ICD-10) History of colonoscopy ?Z98.890 - Other specified postprocedural states (ICD-10) Family History Mother Heart disease Father Heart disease Maternal Grandmother Stomach cancer Grandmother Diabetes Social History Narrative: Single, no kids, [place], Non-smoker, Social EtOH What is your current living situation?: I presently have a place to live Problems where you live: no known problems In the past 12 months, utilities in danger of being shut off: no In past 12 months, lack of transportation kept you from medical appts, meetings, work, or getting things needed for daily living: no In the past 12 mos, have been you worried that your food would run out before you had money to buy more?: never true In the past 12 mos, the food you bought just didn't last and you didn't have money to buy more?: never true Smoking Status: Never smoker How often do you have a drink containing alcohol: monthly or less How often do you have six or more drinks on one occasion: Never AUDIT-C Alcohol total score: 1 Non-prescribed substance use: denies use How often does anyone, including family, friends and others, physically hurt you : never How often does anyone, including family, friends and others, insult or talk down to you: never How often does anyone, including family, friends and others, threaten you with harm: never How often does anyone, including family, friends and others, scream or curse at you: never Little interest or pleasure in doing things: not at all Feeling down, depressed, or hopeless: not at all service: No Exam Narrative: Exam Narrative: Const: Well-nourished, Well-developed, in mild distress Eyes: PERRL, no conjunctival injection, and symmetrical lids HENT: Atraumatic external nose and ears. Moist mucous membranes. Neck: Symmetric, trachea midline, No thyromegaly. CVS: RRR, No murmurs or gallops. Peripheral pulses 2+ and equal in all extr emities RESP: Unlabored respiratory effort. Clear to auscultation bilaterally. GI: Left upper quadrant tenderness, Nondistended, No rebound or guarding. MSK:Extremities w/o deformity, Normal Active ROM Skin: Warm, Dry. No rashes or lesions. Neuro: Normal Muscle tone, No focal neurological deficits. Psych: Awake, Alert, & Oriented x3. Appropriate mood and affect. Const: Vital Signs, click to edit/add: Vital Signs - 24 hr 10/20/23 17:23 Temperature 98.5 F Pulse Rate [Pulse Oximeter] 80 Respiratory Rate 18 Blood Pressure [Ri ght Upper Arm] 126/77 Pulse Oximetry 96 Oxygen Delivery Me thod Room Air Course Vital Signs Vital signs: Initial Vital Signs Temperature 98.5 F 10/20/23 17:23 Temperature Source Temporal Artery Scan 10/20/23 17:23 Pulse Rate 80 10/20/23 17:23 Respiratory Rate 18 10/20/23 17:23 Blood Pressure 126/77 10/20/23 17:23 Blood Pressure Mean 93 10/20/23 17:23 Blood Pressure Position Sitting 10/20/23 17:23 Pulse Oximetry 96 10/20/23 17:23 Oxygen Delivery Method Room Air 10/20/23 17:23 Vital Signs Temperature 98.5 F 10/20/23 17:23 Pulse Rate 80 10/20/23 17:23 Respiratory Rate 18 10/20/23 17:23 Blood Pressure 126/77 10/20/23 17:23 Pulse Oximetry 96 10/20/23 17:23 Oxygen Delivery Method Room Air 10/20/23 17:23 Temperature 98.5 F 10/20/23 17:23 Pulse Rate 80 10/20/23 17:23 Respiratory Rate 18 10/20/23 17:23 Blood Pressure 126/77 10/20/23 17:23 Pulse Oximetry 96 10/20/23 17:23 Oxygen Delivery Method Room Air 10/20/23 17:23 MDM - Abdominal Pain MDM Narrative Medical decision making narrative: Patient is a 42-year-old male presenting for left upper quadrant pain. He was just seen for this same symptoms 2 days ago and had a normal CT scan. I do not believe repeat CT scan is necessary at this time. He asked about ultrasound is I total his CT scan would be more informative the ultrasound. He is not feeling dehydrated I do not believe he needs IV fluids. I will order CBC, CMP, lipase, troponin. I do not believe this is cardiac related at all possible his provider on Thursday some concern with concerns chest pain somewhat ordered another troponin. Also given a dose of Toradol. Before patient goes lab work or medications given patient walked up to me and asked if we would be was transferred to [place] to get EGD. I told this would not be possible as he is not. The transfer. It is states he would rather just go home with follow-up with primary care provider. I again offered if he was the get his pain medicine before he leaves but he says no and then he will dull the room. I am fine with him leaving as he just had a workup done 2 days ago the symptoms are not any different. Expected the workup to be normal. He left before he could receive his discharge paperwork. Discharge Plan Discharge Patient Disposition: Left Against Medical Advice Prescriptions: No Action sucralfate [Carafate] 1 gram tablet 1 g PO TID metoclopramide HCl 10 mg tablet 10 mg PO BID PRN (Reason: nausea and vomiting) Qty: 60 1RF celecoxib [Celebrex] 200 mg capsule 200 mg PO BID Qty: 60 1RF fluticasone propionate 50 mcg/actuation spray,suspension 1 spray intranasal Q12H Qty: 16 0RF Rx Instructions: administer into each nostril levocetirizine 5 mg tablet 5 mg PO QPM Qty: 30 0RF omeprazole 20 mg capsule,delayed release(DR/EC) 20 mg PO QDAY
--- NOTE | 2023-10-20 18:46 | PC.NURSE ---
Patient refused to sign AMA form.
--- NOTE | 2023-10-21 05:56 | ED.NURSE ---
opened chart due to lab calling wondering about pending labs that needed to be collected. Informed lab that the patient left AMA around 1845.
== END 2023-10-20 18:47 | disposition left against medical advice (07) ==
LOC: ED 18:47
PROVIDERS: Emergency Provider Student in an Organized Health Care Education/Training Program; PCP Family Medicine
DX: R10.12 Left upper quadrant pain (principal); Z53.29 Procedure and treatment not carried out because of patient's decision for other reasons
CPT/HCPCS: 80053; 83690; 84484; 85025; 99281; 99282

== ENCOUNTER 2023-10-29 07:54 | Outpatient (CLI) | payer MEDICAID, SELFPAY | END 2023-10-29 07:55 | disposition home or self-care (01) | LOC: FBOREF 07:55 | PROVIDERS: PCP Family Medicine; Visit Provider Family Medicine | DX: Z13.9 Encounter for screening, unspecified (principal) | CPT/HCPCS: 80061 ==

== ENCOUNTER 2024-07-11 13:24 | Outpatient (CLI) | payer MEDICAID, SELFPAY | END 2024-07-11 13:25 | disposition home or self-care (01) | LOC: AMB 07-13 03:21 | PROVIDERS: PCP Family Medicine; Visit Provider Family Medicine | DX: R10.9 Unspecified abdominal pain (principal); R51.9 Headache, unspecified | CPT/HCPCS: A0425; A0427 ==

== ENCOUNTER 2024-11-13 17:42 | Emergency (ER) | payer MEDICAID, SELFPAY ==
--- OUTSIDE RECORDS SUMMARY | 2024-11-13 17:44 | XMS_ITS | Clinical Summary ---
Author Organization [facility] Address [address] [place] [address] Care Team Providers Care Appian Bpm Developer Name Role Phone Elsewhere, Pcp Primary Care Provider Unavailabl e Source Comments Patient records contain information from all sites at [facility]. For routine questions regarding patient records, call [phone] during business hours, M-F 8:00 AM - 5:00 PM Central Time. Record requests for emergency care only can be directed to [phone] at any time.[facility] Allergies No known active allergies Medications acetaminophen (TYLENOL) 500 mg tablet Take 500-1,000 mg by mouth. 1 Active ondansetron ODT (ZOFRAN-ODT) 4 mg disintegrating tablet Dissolve 4 mg in the mouth. 2 Active sucralfate (Carafate) 1 gram tablet Take 1 g by mouth 3 (three) times a day before meals. 3 Active omeprazole (PriLOSEC) [address] capsule Take 40 mg by mouth every morning before breakfast. 3 Active metoclopramide (Reglan) 5 mg tablet Take 5 mg by mouth as needed (As needed). 3 Active celecoxib (CeleBREX) 200 mg capsule Take 1 capsule by mouth 2 (two) times a day. 3 Active Active Problems Problem Noted Date Diagnosed Date Abnormal Findings On Diagnos tic Imaging Of Other Specified Body Structures 10/18/2023 Contusion Abdominal Wall Initial 10/18/2023 Diaphragmatic Hernia Without Obstruction Or Gang luke 10/18/2023 Edema 10/18/2023 Gastroparesis 11/30/2021 Satiety Early 11/30/2021 Nodule Pulmonary Solitary 05/04/2021 Overview (10/18/2023): New left lower lobe pulmonary nodule noted on 03/26/2021 CT of the abdomen and pelvis done at [facility]. A chest CT was recommended for further evaluation. Abdominal Pain 03/21/2021 Fundoplication Kierra Status Post 06/21/2019 Overview (06/21/2019): January 2018 [place], [place] Psychosocial Circumstance 08/22/2018 Adjustment Disorder 08/22/2018 Nausea And Vomiting 02/06/2018 Peptic Ulcer Site Unspecifie d Unspecified As Acute Or Chronic Without Hemorrhage Or Perforation 12/03/2017 Irritable Bowel Syndrome, Unspecified 10/18/2017 Bloating Abdominal 10/15/2017 Dysphagia 10/15/2017 Diarrhea 07/22/2017 Pain Unspecified 07/22/2017 Other Specified Anxiety Disorders 07/01/2017 Pain Epigastric 07/01/2017 Chronic Migraine 05/05/2017 Acute Gastric Ulcer Without Hemorrhage Or Perfor ation 04/03/2017 Gastroduodenitis Unspecified Without Bleeding Weakness Arm Left 10/15/2016 Radiculopathy 10/07/2016 Abnormal Gait Non Orthopedic 08/05/2016 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 When he was initially evaluated he complained of IBS like symptoms since childhood including abdominal pain, diarrhea, constipation, regurgitation, nausea, and vomiting. His workup at that time included: EGD with bx of the esophagus, stomach, and duodenum (Pathology unremarkable) Video Swallow: Normal Esophogram: Normal Prior colonoscopy (2016) with random biopsies, exam and pathology normal Following our evaluation, the patient was seen by an outside GI group, found to have a hiatal hernia, and underwent a kierra's fundoplication 01/2018. The patient reports that following this procedure he had resolution of his symptoms for approximately 1 year. Unfortunately, his symptoms returned and he re-presented to our clinic in the May, when he saw Dr. Motley. He continues to complain intermittently of the same symptoms as prior. Today, he reports daily burning substernal chest pain, lasting in duration from 1 hour up to the entire day without any significant improvement on a bland diet. He also has a sensation that food gets stuck in the middle of his chest with some intermittent regurgitation of saliva as well as food product. He denies this being forceful. He also complains of a metallic taste in the back of his mouth with occasional bright red blood present without clots. He notes that this is not typically in the presence of coughing, so he thinks it is coming from his stomach. He complains of abdominal distention often associated with a swollen sensation in his chest and neck 1 to 2 times a week. Bowel function: 2-4 stools daily, often shortly following meals, Collison 1-7 range without any specific pattern or triggers, rare improvement in his bloating sensation with bowel movements, increasing gas, without an increase in burping (the patient denies using straws, gum, tobacco, carbonated beverages, he also does not have a history of sleep apnea). 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 without any significant improvement in his symptoms as well. He does recall a remote history of trialing Metamucil without any significant improvement. Assessment & Plan (06/18/2022 7:32 PM CDT): We discussed with the patient has had a fairly extensive evaluation to date without any significant abnormalities. At this time we are fairly reassured that his symptoms are likely related to esophageal sensitivity, without any organic pathology which we will be able to address. Given the reports of regurgitating blood, we did discuss repeating an EGD; however given his report of bright red blood, we have greater suspicion that this is a nasal pharyngeal source as digested blood should not be bright red. The patient elected to proceed with a EGD, and we discussed also repeating a Santiago test in this setting off his Nexium to ensure that he would be safe to continue off this medication at this time as it is providing very little symptomatic relief for the patient. Depressive Disorder 02/04/2015 Resolved Problems Problem Noted Date Diagnosed Date Resolved Date Hemiparesis 10/07/2016 06/18/2022 Immunizations Immunization Administration Dates Next Due DTaP (Daptacel) 03/10/1994,03/10/1984 DTaP (Infanrix, Tripedia) 03/10/1984 HepB Adult 11/11/2022 HepB Adult (HEPLISAV-B) 11/11/2022 IPV 03/10/1984 Influenza Split 07/02/2006 Influenza TIV (IM) 09/13/2013,05/16/2009 Influenza, Injectable, Quadrivalent 10/22/2022,1 ,09/12/2013 Influenza, Seasonal, Injectable 06/14/2008 Influenza, Unspecified 06/25/2017,08/03/2014 Polio, Unspecified 03/10/1984 Td (Adult), adsorbed 12/12/1993 Td Preservative Free (TENIVA C, DECAVAC) 02/18/2005 Td, (Adult) Unspecified 02/12/1995 influenza trivalent vaccine (6 months and older)(PF) 06/07/2017,08/03/2014 influenza vaccine quad (FLUZONE/FLUARIX) (6 months and older)(PF) 05/14/2021,06/21/2019,06/17/2018,2016,08/04/2016 Family History Medical History Relation Name Comments Alzheimer's disease Father Coronary artery disease Father Hyperlipidemia Father Hypertension Father KIRSTEN disease Mother Hypertension Mother Relation Name Status Comments Father Mother Social History Tobacco Use Types Packs/Day Years Used Date Smoking Tobacco: Never Smokeless Tobacco: Never Tobacco Cessation:Counseling Given: Not Answered Alcohol Use Standard Drinks/Week Comments Yes 0 (1 standard drink = 0.6 oz pur e alcohol) occasionally Humiliation, Afraid, Rape, and Kick questionnair e Answer Date Recorded Within the last year, have y ou been afraid of your partner or ex-partner? No 12/25/2021 Within the last year, have y ou been humiliated or emotionally abused in other ways by your partner or ex-partner? No Within the last year, have y ou been kicked, hit, slapped, or otherwise physically hurt by your partner or ex-partner? No 12/25/2021 Within the last year, have y ou been raped or forced to have any kind of sexual activity by your partner or ex-partner? No 12/25/2021 Social Connection and Isolat ion Panel [NHANES] Answer Date Recorded In a typical week, how many times do you talk on the phone with family, friends, or neighbors? More than three times a week 12/25/2021 How often do you get togethe r with friends or relatives? Twice a week 12/25/2021 How often do you attend chur ch or zoroastrian services? More than 4 times per year 12/25/2021 Do you belong to any clubs o r organizations such as denominational groups, unions, fraternal or athletic groups, or school groups? Yes 12/25/2021 How often do you attend meet ings of the clubs or organizations you belong to? More than 4 times per year 12/25/2021 Are you , , di vorced, , never , or living with a partner? Never 12/25/2021 AUDIT-C Answer Date Recorded Q1: How often do you have a drink containing alc ohol? 2-4 times a month 12/25/2021 Q2: How many drinks containi ng alcohol do you have on a typical day when you are drinking? 1 or 2 12/25/2021 Q3: How often do you have si x or more drinks on one occasion? Never 12/25/2021 Overall Financial Resource Strain (CARDIA) Answe r Date Recorded How hard is it for you to pa y for the very basics like food, housing, medical care, and heating? Not hard at all 12/25/2021 PHQ-2 Answer Date Recorded PHQ-2 Score 0 06/21/2019 [facility] [place] [facility] - Occupational Stress Questionnaire Answer Date Recorded Do you feel stress - tense, restless, nervous, or anxious, or unable to sleep at night because your mind is troubled all the time - these days? Only a little 12/25/2021 Exercise Vital Sign Answer Date Recorde d On average, how many days pe r week do you engage in moderate to strenuous exercise (like a brisk walk)? 4 days 12/25/2021 On average, how many minutes do you engage in exercise at this level? 150+ min 12/25/2021 Hunger Vital Sign Answer Date Recorded Within the past 12 months, y ou worried that your food would run out before you got the money to buy more. Never true 12/26/19 Within the past 12 months, t he food you bought just didn't last and you didn't have money to get more. Never true 12/25/2021 PRAPARE - Transportation Answer Date Re corded In the past 12 months, has l ack of transportation kept you from medical appointments or from getting medications? No 11/2021 In the past 12 months, has l ack of transportation kept you from meetings, work, or from getting things needed for daily living? No 12/25/2021 Housing Stability Vital Sign Answer Jaron e Recorded In the last 12 months, was t here a time when you were not able to pay the mortgage or rent on time? No 12/25/2021 In the last 12 months, how many places have you lived? 1 12/25/2021 In the last 12 months, was t here a time when you did not have a steady place to sleep or slept in a fdc (including now)? Yes 12/25/2021 Nutrition Answer Date Recorded Nutrition: EVOO Fat Source No 12/25 On average, how many serving s of fruits and vegetables do you eat per day (serving size is equal to 1 cup or approximately the size of a tennis ball)? 0-1 12/25/2021 Dental Answer Date Recorded Dental: Regular Dentist Yes 12/26/19 Employment Answer Date Recorded Employment status Employed and actively working without restrictions 12/25/2021 Education Answer Date Recorded What is the highest level of school you have completed or the highest degree you have received? Some college, no degree 12/25/2021 Sex and Gender Information Value Date Recorded Sex Assigned at Male 06/04/2021 12:44 PM CDT Legal Sex Male 8:30 AM ELECTRIC POWER LINE EXAMINER Gender Identity Male 06/04/2021 12:44 PM CDT Sexual Orientation Straight 06/04/2021 12 :44 PM CDT Last Filed Vital Signs Vital Sign Reading Time Taken Comments Blood Pressure 110/78 10/19/2023 3:30 AM ELECTRIC POWER LINE EXAMINER Pulse 83 10/19/2023 3:30 AM ELECTRIC POWER LINE EXAMINER Temperature 36.3 C (97.3 F) 10/18/2023 10:30 PM ELECTRIC POWER LINE EXAMINER Respiratory Rate 16 10/19/2023 3:30 AM ELECTRIC POWER LINE EXAMINER Oxygen Saturation 93% 10/19/2023 3:30 AM ELECTRIC POWER LINE EXAMINER Inhaled Oxygen Concentration - - Weight 87.9 kg (193 lb 12.6 oz) 024 10:18 PM ELECTRIC POWER LINE EXAMINER Height 168.2 cm (5' 6.22) 12/25/2021 1 0:46 AM CDT Body Mass Index 31.07 12/25/2021 10:46 AM CDT Plan of Treatment Health Maintenance Due Date Last Done Comments CT Colonography 1978 Cologuard 1978 Depression Monitoring (PHQ-9) 1978 FIT 1978 Hepatitis C Screening 1978 IPV Vaccines (2 of 3 - 4-dose series) 04/07/1984 03/10/1984, 03/10/1984 Hepatitis B Vaccines (4 of 4 - HepB-CpG 4-dose series) 03/03/2023 06/28/2024, 11/11/2022, 11/11/2022 COVID-19 Vaccine ( - season) 2024 08/13/2021, 11/22/2020, 10/25/2020 Influenza Vaccine (#1) 2024 , 05/14/2021, 06/21/2019, Additional history exists Depression Monitoring (PHQ-9 for quality tracking) 08/24/2024 Fasting Glucose for Diabetes Screening 03/04/2027 03/04/2024, 03/01/2024, 02/10/2024, Additional history exists Lipid (Cholesterol) Screening 03/01/2029 03/01/2024, 08/04/2016, 08/04/2016 (Performed elsewhere) Colonoscopy 11/09/2033 11/10/2023, 05/05/2021 Colorectal Cancer Screening 11/09/2033 DTaP,Tdap,and Td Vaccines (5 - Td or Tdap) 06/28/2034 06/28/2024, 02/18/2005, 02/12/1995, Additional history exists HIV Screening Completed 08/04/2016 HPV Vaccines Aged Out No longer eligi ble based on patient's age to complete this topic Pneumococcal vaccine (0-49 years) Aged Out No longer eligible based on patient's age to complete this topic Procedures Procedure Name Priority Date/Time Associated Diagnosis Comments BASIC METABOLIC PANEL, S/P STAT 10/18/2023 11:35 PM ELECTRIC POWER LINE EXAMINER HIV-1/-2 AG AND AB SCREEN Routine 08/04/2016 4:49 AM ELECTRIC POWER LINE EXAMINER LIPID PANEL, S Routine 08/04/2016 4:49 AM ELECTRIC POWER LINE EXAMINER from Last 3 Months or Most Recently Relevant to Health Maintenance Results * Basic Metabolic Panel (10/18/2023 11:35 PM ELECTRIC POWER LINE EXAMINER) Potassium, P 4.2 3.6 - 5.2 mmol/L 10/18/2023 11:57 PM ELECTRIC POWER LINE EXAMINER STMA Sodium, P 138 135 - 145 mmol/L 10/18/2023 11:57 PM ELECTRIC POWER LINE EXAMINER STMA Chloride, P 103 98 - 107 mmol/L 10/18/2023 11:57 PM ELECTRIC POWER LINE EXAMINER STMA Bicarbonate, P 26 22 - 29 mmol/L 10/18/2023 11:57 PM ELECTRIC POWER LINE EXAMINER STMA Anion Gap, P 9 7 - 15 10/18/2023 11:57 PM ELECTRIC POWER LINE EXAMINER STMA BUN (Blood Urea Nitrogen), P 16 8 - 24 mg/dL 10/18/2023 11:57 PM ELECTRIC POWER LINE EXAMINER STMA Creatinine 1.02 0.74 - 1.35 mg/dL 10/18/2023 11:57 PM ELECTRIC POWER LINE EXAMINER STMA Estimated GFR (eGFR) >90 >=60 mL/min/BSA 10/18/2023 11:57 PM ELECTRIC POWER LINE EXAMINER [facility]MA Comment: Estimated GFR calculated using the 2020 CKD_EPI creatinine equation. Calcium, Total, P 9.3 8.6 - 10.0 mg/dL 10/18/2023 11:57 PM ELECTRIC POWER LINE EXAMINER STMA Glucose, P 110 70 - 140 mg/dL 10/18/2023 11:57 PM ELECTRIC POWER LINE EXAMINER STMA Blood (Blood, Venous) 10/18/2023 11:35 PM ELECTRIC POWER LINE EXAMINER 10/18/2023 11:39 PM ELECTRIC POWER LINE EXAMINER us Carroll Lewis M.D. LAB BLOOD ADD-ON Final Resul t [facility] [address] [place] [address], [facility] [address] [place] [address] * (ABNORMAL) Lipid Panel (08/04/2016 4:49 AM ELECTRIC POWER LINE EXAMINER) Cholesterol, HDL, S 44 >=40 MG/DL [facility] Calculated LDL 159(H) SeeComment MG/DL [facility] Comment: REFERENCE VALUE Desirable: <100 Above Desirable: 100-129 Borderline high: 130-159 High: 160-189 Very high: > or =190 Cholesterol, Total 221(H) SeeComment MG/DL [facility] Comment: REFERENCE VALUE Desirable: < 200 Borderline high: 200 - 239 High: > or = 240 Triglycerides 89 SeeComment MG/DL [facility] Comment: REFERENCE VALUE Normal: <150 Borderline high: 150-199 High: 200-499 Very high: > or =500 Cholesterol, Non-HDL, Calculated 177(H) SeeComment MG/DL [facility] Comment: REFERENCE VALUE Desirable: <130 Above Desirable: 130-159 Borderline high: 160-189 High: 190-219 Very high: > or =220 08/04/2016 4:49 AM ELECTRIC POWER LINE EXAMINER 08/04/2016 4:49 AM ELECTRIC POWER LINE EXAMINER Teofilo Hartman M.D. LAB BLOOD ADD-ON Final Res ult Performing Organization Address [facility] Co de Phone Number [address] * HIV-1/-2 Ag and Ab Screen (08/04/2016 4:49 AM ELECTRIC POWER LINE EXAMINER) HIV-1/-2 Ag and Ab Screen, S Negative Negative [facility] Comment: Negative result does not rule out HIV infection. If acute HIV infection is suspected in a high-risk individual, submit plasma specimen for HIV-1 RNA quantification test (HIVDQ) and/or HIV-2 DNA/RNA test (FHV2Q). 08/04/2016 4:49 AM ELECTRIC POWER LINE EXAMINER 08/04/2016 4:49 AM ELECTRIC POWER LINE EXAMINER us Teofilo Hartman M.D. LAB MICROBIOLOGY - BLOOD O RDERABLES Final Result Performing Organization Address [facility] Co de Phone Number [address] from Last 3 Months or Most Recently Relevant to [place] [address] [place] [address] [employer] Care Teams Appian Bpm Developer Relationship Specialty Start Date End Date Elsewhere, Pcp PCP - General Internal Medicine 10/18/23
--- OUTSIDE RECORDS SUMMARY | 2024-11-13 17:45 | XMS_ITS | Clinical Summary ---
Author Organization [facility] Address [address] [place] [id number] Care Team Providers Care Manager Winter Name Role Phone Unruly Joshi MD Unavailable [phone] Donny Botello Primary Care Provider [phone] Allergies No known active allergies Medications albuterol (PROAIR HFA/PROVENTIL HFA/VENTOLIN HFA) 108 (90 BASE) MCG/ACT Inhaler Inhale 2 puffs into the lungs 6 Active cetirizine (ZYRTEC) 10 MG tablet Take 10 mg by mouth 6 Active cyclobenzaprine (FLEXERIL) 10 MG tablet Take 10 mg by mouth 6 Active LORazepam (ATIVAN) 0.5 MG tablet Take 0.5-1 mg by mouth 6 Active meclizine (ANTIVERT) 12.5 MG tablet Take 25 mg by mouth 6 Active naproxen (NAPROSYN) 500 MG tablet Take 500 mg by mouth 6 Active omeprazole (PRILOSEC) 40 MG capsule Take 40 mg by mouth 5 Active sertraline (ZOLOFT) 50 MG tablet Take 50 mg by mouth 6 Active traMADol (ULTRAM) 50 MG tablet Take 50 mg by mouth Active naproxen (NAPROSYN) 500 MG tabletIndicatio ns:Mass of joint of left shoulder Take 1 tablet (500 mg) by mouth 2 times daily as needed for moderate pain (with meals) 60 tablet 3 6 Active gabapentin (NEURONTIN) 300 MG capsuleIndicati ons:Mass of joint of left shoulder Take 1 capsule (300 mg) by mouth 3 times daily 90 capsule 1 6 Active methylPREDNISol one (MEDROL DOSEPAK) 4 MG tabletIndicatio ns:Mass of joint of left shoulder Take 2 tablets (8 mg) by mouth See Admin Instructions follow package directions 21 tablet 0 6 Active metoclopramide (REGLAN) 5 MG tablet Take 1 tablet (5 mg) by mouth 3 times daily as needed 20 tablet 9 Active Active Problems Problem Noted Date Diagnosed Date Mass of joint of left shoulder 08/01/2016 Depression 02/04/2015 Social History Tobacco Use Types Packs/Day Years Used Date Smoking Tobacco: Never Tobacco Cessation:Ready to Q uit: Yes Alcohol Use Standard Drinks/Week Comments No 0 (1 standard drink = 0.6 oz pur e alcohol) Adolescent Education Answer Date Record ed Getting School Help Needed Not on file 05/15 Sex and Gender Information Value Date Recorded Sex Assigned at Not on file Legal Sex Male 11:09 AM FIELD SALES ENGINEER Gender Identity Not on file Sexual Orientation Not on file Last Filed Vital Signs Vital Sign Reading Time Taken Comments Blood Pressure 119/77 08/06/2019 3:30 PM FIELD SALES ENGINEER Pulse 71 08/06/2019 3:30 PM FIELD SALES ENGINEER Temperature 37.2 C (98.9 F) 08/06/2019 9:44 AM FIELD SALES ENGINEER Respiratory Rate 18 08/06/2019 3:30 PM FIELD SALES ENGINEER Oxygen Saturation 99% 08/06/2019 3:30 PM FIELD SALES ENGINEER Inhaled Oxygen Concentration - - Weight 68.9 kg (151 lb 14.4 oz) 016 10:54 AM FIELD SALES ENGINEER Height 166.7 cm (5' 5.63) 08/01/2016 1 0:54 AM FIELD SALES ENGINEER Body Mass Index 24.79 08/01/2016 10:54 AM FIELD SALES ENGINEER Plan of Treatment Not on file [place] [id number] Care Teams Manager Winter Relationship Specialty Start Date End Date Donny Botello [address] [place], [place] [address] [place] [address] PCP - General Family Practice 08/01/16 Unruly Joshi MD [address] [place], [place] [address] [place], [place] [address] Orthopedics 07/28/16
--- OUTSIDE RECORDS SUMMARY | 2024-11-13 17:45 | XMS_ITS | Clinical Summary ---
Author Organization [facility] [facility] Address [address] [place] [address] Care Team Providers Care Manager Epic Name Role Phone Unavailable Primary Care Provider Unavailabl e Source Comments You are receiving this document as you are listed as the primary care provider,follow-up provider, or the patient has been referred to you for consultation.This is in compliance with the Medicare and[facility] EHR Incentive Program,which states Providers who transition their patient to another setting of careor provider of care or refers their patient to another provider of care shouldprovide summary care record for each transition of care or referral. [facility] Active Problems Problem Noted Date Diagnosed Date Abdominal distension, gaseous 09/29/2018 Nausea and vomiting 02/06/2018 History of Ghazal fundoplication 02/06/2018 Irritable bowel syndrome 10/18/2017 Pain 07/22/2017 Hypokalemia 07/01/2017 Epigastric pain 07/01/2017 Anxiety and depression 07/01/2017 GERD (gastroesophageal reflux disease) 7 Gastritis and duodenitis 04/03/2017 Acute gastric ulcer without hemorrhage or perfor ation 04/03/2017 Esophagitis, [place] grade C 04/03/2017 Hemiparesis 10/07/2016 Mass of joint of left shoulder 08/01/2016 Shoulder pain 10/05/[address] of the chest Paraesophageal hernia Diarrhea Resolved Problems Problem Noted Date Diagnosed Date Resolved Date Vomiting 01/06/2018 02/06/2018 Depression 02/04/2015 02/06/2018 Immunizations Immunization Administration Dates Next Due Flu Vac (3+ yrs) 09/13/2013,05/16/2009 Fluzone Qiv Multidose Vial 0.25 (6-35 Mos) 06/17 Influenza IIV4 (Quadrivalent) 0.5mL (73173) 05/25,06/25/2017,08/03/2014 Td 02/12/1995 Tdap 03/07/2014 Family History Medical History Relation Name Comments Heart Disease Father had two stents placed Heart Disease Mother w eso cho ilya and ended up starving Cancer, Stomach Maternal Grandfather Relation Name Status Comments Father Mother Maternal Grandfather Social History Tobacco Use Types Packs/Day Years Used Date Smoking Tobacco: Never Smokeless Tobacco: Never Alcohol Use Standard Drinks/Week Comments Yes 1 (1 standard drink = 0.6 oz pur e alcohol) social Sex and Gender Information Value Date Recorded Sex Assigned at Not on file Legal Sex Male 12:55 PM CDT Gender Identity Not on file Sexual Orientation Not on file 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 Not on file Not on file Not on file Plan of Treatment Health Maintenance Due Date Last Done Comments Colon Cancer Screening Plan Due 1978 Hep C Screening (Preventive Services) 1978 HIV Screening (Preventive Services) 1994 Adult Preventive Visit 1996 HepB (1) 1997 Cholesterol 2013 DTaP/Tdap/Td (3 - Tdap) 03/07/2024 03/07/2014, 02/12 COVID-19 Vaccine ( season) 2024 Influenza (#1) 2024 06/17/2018, 05/25, 06/25/2017, Additional history exists Zoster/Shingles (1 of 2) 2028 HPV Vaccine Aged Out No longer eligi ble based on patient's age to complete this topic HepA Aged Out No longer eligi ble based on patient's age to complete this topic Hib Aged Out No longer eligi ble based on patient's age to complete this topic IPV (Polio) Aged Out No longer eligi ble based on patient's age to complete this topic MCV4 Aged Out No longer eligi ble based on patient's age to complete this topic Meningococcal B Aged Out No longer el igible based on patient's age to complete this topic Pneumococcal Aged Out No longer eligi ble based on patient's age to complete this topic Insurance [facility] Advance Directives * Full Code (Latest Code Status on File) Date Activated Date Inactivated Comments 02/04/2015 8:00 AM 02/03/2015 7:00 PM * Full Code Date Activated Date Inactivated Comments 02/04/2015 8:00 AM 02/06/2015 8:24 AM
--- OUTSIDE RECORDS SUMMARY | 2024-11-13 17:45 | XMS_ITS | Clinical Summary ---
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 Max acetaminophen dose: 4000mg in 24 hrs. 0 05/05/20 21 Active ibuprofen (ADVIL; MOTRIN) 200 mg tablet Take 400 mg by mouth every 6 hours if needed for Pain (2ND CHOICE). Active atorvastatin (LIPITOR) 20 mg tabletIndications :Mixed hyperlipidemia Take 1 Tablet (20 mg) by mouth at bedtime. 90 Tablet 3 03/02/20 24 Active dicyclomine (BENTYL) 10 mg capsule 06/22/20 24 Active sucralfate (CARAFATE) 1 gram tabletIndications :Chronic GERD Take 1 Tablet (1 g) by mouth four times daily before meals and at bedtime. 270 Tablet 1 07/08/20 24 Active famotidine (PEPCID) 20 mg tabletIndications :Recurrent upper abdominal pain,History of gastritis Take 1 Tablet (20 mg) by mouth 2 times daily if needed for Heartburn or GI Upset. 20 Tablet 07/11/20 24 Active gabapentin (NEURONTIN) 300 mg capsuleIndication s:Paresthesia of upper and lower extremities of both sides,Cervical spondylosis,Cervi alonso radiculitis,Lumba r radiculitis,Lumba r spondylosis Take 1 Capsule (300 mg) by mouth three times daily. Gabapentin Titration: Week 1: Take 300mg at night (0/0/300) Week 2: Take 300mg in the morning, and 300mg at night (300/0/300) Week 3: Take 300mg in the morning, 300mg in the afternoon, and 300mg at night (300/300/300) *If at any point in this titration you feel relief, you can stop increasing the medication *If at any point during this titration you feel fatigue, disorientation, trouble concentrating go back to previous dose 60 Capsule 07/26/20 24 Active omeprazole (PRILOSEC) 40 mg Delayed-Release capsuleIndication s:Abdominal distension, gaseous,Gastroeso phageal reflux disease with esophagitis, unspecified whether hemorrhage Take 1 Capsule (40 mg) by mouth once daily before a meal. 90 Capsule 3 09/09/19 25 Active tiZANidine (ZANAFLEX) 2 mg tabletIndications :Chronic left-sided low back pain with left-sided sciatica Take 1-2 Tablets (2-4 mg) by mouth at bedtime. 40 Tablet 10/06/19 25 Active escitalopram oxalate (LEXAPRO) 10 mg tabletIndications :JONATHAN (generalized anxiety disorder) Take 1/2 tablet once daily for 1 week, then increase to 1 tablet once daily. 90 Tablet 3 10/06/19 25 Active ondansetron (ZOFRAN ODT) 4 mg disintegrating tabletIndications :Nausea Place 1-2 Tablets (4-8 mg) on the tongue every 8 hours if needed for Nausea/Vomiting. 20 Tablet 10/27/19 25 Active ondansetron (ZOFRAN ODT) 4 mg disintegrating tabletIndications :Nausea Place 1-2 Tablets (4-8 mg) on the tongue every 8 hours if needed for Nausea/Vomiting. 20 Tablet 07/08/20 24 025 Discontin ued(Reord er (E-cancel not sent)) azithromycin (ZITHROMAX) 500 mg tabletIndications :Campylobacter diarrhea Take 1 Tablet (500 mg) by mouth every 24 hours for 3 days. 3 Tablet 10/28/19 25 025 Active Problems Problem Noted Date Diagnosed Date Hepatic steatosis 02/10/2024 Liver masses 02/10/2024 Early satiety 11/30/2021 Gastroparesis 11/30/2021 Pulmonary nodule 05/04/2021 Overview (05/04/2021): New left lower lobe pulmonary nodule noted on 03/26/2021 CT of the abdomen and pelvis done at [place]. A chest CT was recommended for further evaluation. Acute on Chronic Abdominal Pain 05/03/2021 Adjustment disorder 08/22/2018 Advised about management of weight 06/28/2018 History of Ghazal fundoplication 02/06/2018 Irritable bowel syndrome 10/18/2017 Pain 07/22/2017 Anxiety and depression 07/01/2017 Epigastric pain 07/01/2017 GERD (gastroesophageal reflux disease) 7 Esophagitis, Livingston grade C 04/03/2017 Gastritis and duodenitis 04/03/2017 Mass of joint of left shoulder 08/01/2016 Shoulder pain 10/05/[address] of the chest Resolved Problems Problem Noted Date Diagnosed Date Resolved Date Altered bowel habits 11/30/2021 024 Abdominal bloating 11/30/2021 Abdominal pain 03/21/2021 02/10/2024 Abdominal distension, gaseous 09/29/2018 02/10/2024 Nausea and vomiting 02/06/2018 02/10/20 24 Vomiting 01/06/2018 02/06/2018 Hypokalemia 07/01/2017 02/10/2024 Acute gastric ulcer without hemorrhage or perforation 04/03/2017 02/10/2024 Hemiparesis 10/07/2016 05/17/2021 Depression 02/04/2015 02/06/2018 Diarrhea 02/10/2024 Encounters Date Type Department Care Team Description 10/28/2024 Telephone [facility] [address] [facility] [place] [id number] Bibiana Lazar MD Lab 10/26/2024 8:33 AM [facility] - 10/26/2024 11:59 PM [facility] Hospital Encounter [facility] [address] [facility] [place] [address] Bibiana Lazar MD Bloody stool 10/26/2024 7:45 AM [facility] Office Visit [facility] [address] [place] [address] Bibiana Lazar MD Diarrhea (With blood in stool) 10/26/2024 Travel 10/24/2024 Nurse Triage [facility] [address] [place] [address] Bessy Menendez PA Diarrhea ( Liquid bloody diarrhea since last Thursday. Clammy, dehydrated) 10/20/2024 8:30 PM [facility] - 10/20/2024 11:20 PM [facility] Emergency [facility] [address] [place] [address] Adiel Chau MD Left leg pain (Primary Dx); Acute nonintractable headache, unspecified headache type Discharge Disposition: Home Self Care 10/20/2024 Travel 10/18/2024 1:42 PM [facility] - 10/18/2024 11:59 PM [facility] Hospital Encounter [facility] [address] [place] [address] Lasha Singh DO Becken, Amy, PT 10/18/2024 Travel 10/13/2024 8:29 AM [facility] - 10/13/2024 11:59 PM [facility] Hospital Encounter [facility] [address] [place] [address] Lasha Singh DO Vinar, Kaylin J, [employer] 10/13/2024 Travel 10/11/2024 11:15 AM [facility] Ancillary Procedure [facility] [address] [facility] [address] [place] [address] 10/11/2024 Travel 10/07/2024 11:45 AM [facility] - 10/07/2024 11:59 PM [facility] Hospital Encounter [facility] [address] [place] [address] Lasha Singh DO Becken, Amy, PT 10/06/2024 8:30 AM [facility] Office Visit [facility] [address] [facility] [address] Bessy Menendez PA Anxiety; Back Pain 10/06/2024 Travel 09/26/2024 3:10 PM [facility] - 09/26/2024 11:59 PM [facility] Hospital Encounter [address] [address] Lasha Singh DO Becken, Amy, PT 09/26/2024 Travel 09/20/2024 1:29 PM [facility] - 09/20/2024 11:59 PM [facility] Hospital Encounter [address] [address] Lasha Singh DO Becken, Amy, PT 09/20/2024 Travel 09/14/2024 12:15 PM [facility] Office Visit [facility] [address] [facility] [address] [place] [address] Lasha Singh DO Follow Up (Recheck Neck/Back Pain) 09/14/2024 Travel 09/12/2024 3:08 PM [facility] - 09/12/2024 11:59 PM [facility] Hospital Encounter [address] [address] Lasha Singh DO Becken, Amy, PT 09/12/2024 Travel 09/06/2024 12:48 PM [facility] - 09/06/2024 11:59 PM [facility] Hospital Encounter [facility] [address] [address] Bessy Menendez PA Beck, Elizabeth Haule, MD Paresthesia and pain of both upper extremities; Paresthesia of both lower extremities 09/06/2024 Travel 09/01/2024 9:26 AM [facility] - 09/01/2024 11:59 PM [facility] Hospital Encounter [address] [address] Lasha Singh DO Becken, Amy, PT 09/01/2024 Travel 08/23/2024 7:45 AM [facility] - 08/23/2024 11:59 PM [facility] Hospital Encounter [facility] [address] [facility] [place] [address] Lasha Singh DO Becken, Dayanna, PT Paresthesia of upper and lower extremities of both sides; Cervical spondylosis; Cervical radiculitis; Lumbar radiculitis; Lumbar spondylosis 08/23/2024 Travel from Last 3 Months Immunizations Immunization Administration Dates Next Due COVID-19 vaccine (Moderna 100mcg/0.5mL) PF, MDV 11/22/2020,10/25/2020 Hep B (Hepatitis B (Adult) Recombinant Adjuvanted) 11/11/2022 Hepatitis B (Adult) 06/28/2024 Influenza, IIV3 (Age >=3 years) 09/13/2013,05/16 Influenza, IIV4 05/14/2021, 9,06/17/2018,2016,08/04/2016,08/03/2014 Influenza, IIV4 (=>6mos) MDV 10/22/2022,06/17/20 18 Td (Age >=7 Years) 02/12/1995 Tdap 06/28/2024,03/07/2014 Family History Medical History Relation Name Comments Heart Disease Father had two stents placed Stomach cancer Maternal Grandfather Heart Disease Mother w eso cho ilya and ended up starving Relation Name Status Comments Father Maternal Grandfather Mother Social History Tobacco Use Types Packs/Day Years Used Date Smoking Tobacco: Never Smokeless Tobacco: Never Tobacco Cessation:Counseling Given: No Alcohol Use Standard Drinks/Week Comments Not Currently 1 (1 standard drink = 0.6 oz pur e alcohol) social PHQ-2 Answer Date Recorded PHQ-2 TOTAL SCORE 0 12/21/2023 Social Connections Answer Date Recorded Do you often feel lonely or isolated from those around you? 0 12/21/2023 Financial Resource Strain Answer Date R ecorded Difficulty of Paying Living Expenses 3 12/21/2023 Difficulty of Paying Living Expenses Not on file 12/21/2023 Food Insecurity Answer Date Recorded Do you worry your food will run out before you are able to buy more? 1 12/21/2023 Transportation Needs Answer Date Record ed Does lack of transportation keep you from medica l appointments? 1 12/21/2023 Does lack of transportation keep you from work, meetings or getting things that you need? 1 12/21/2023 Housing Stability Answer Date Recorded What is your housing situation today? 1 12/21/2023 Interpersonal Safety Answer Date Record ed Are you being hit, kicked, p ushed or yelled at (see row info)? No 10/20/2024 Interpersonal Safety Abuse 12 - 18 Not on file 10/20/2024 Interpersonal Safety Ambulatory Vulnerability No t on file 10/20/2024 Utilities Answer Date Recorded Do you have trouble paying f or utilities (for example, heat, electricity, water, phone)? 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 Not on file Not on file Not on file Obstetrics History Last Filed Vital Signs Vital Sign Reading Time Taken Comments Blood Pressure 120/70 10/26/2024 7:45 AM [facility] Pulse 89 10/26/2024 7:45 AM [facility] Temperature 36.4 C (97.6 F) 10/26/2024 7:45 AM [facility] Respiratory Rate 16 10/20/2024 8:36 PM [facility] Oxygen Saturation 96% 10/26/2024 7:45 AM [facility] Inhaled Oxygen Concentration - - Weight 80.7 kg (178 lb) 10/26/2024 7:45 AM [facility] Height 167.6 cm (5' 6) 10/26/2024 7:45 AM [facility] Body Mass Index 28.73 10/26/2024 7:45 AM [facility] Plan of Treatment Upcoming Encounters Date Type Department Care Team (Late st Contact Info) Description 11/15/2024 2:30 PM CDT Appointment [address] [address] Imani Limon, [employer] [address] [place] [address] 11/25/2024 8:45 AM CDT Appointment [facility] [address] [place] [address] Dayanna Yang, PT [address] [place] [address] Health Maintenance Due Date Last Done Comments HIV for age 15-65 1993 Hepatitis C screening for ag e 18-79 1996 Pneumococcal series for age 6-49 (1 of 2 - PCV) 1997 COVID-19 vaccine series ( season) 2024 08/13/2021, 11/22/2020, 10/25/2020 Influenza Vaccine (#1) 2024 , 05/14/2021, 06/21/2019, Additional history exists Depression screening for age 12+ 12/20/2024 12/21/2023, 10/27/2022, 05/17/2021, Additional history exists BMI (ht and wt on same day) for age 18+ 10/26/2025 10/26/2024, 09/14/2024, 07/26/2024, Additional history exists Lipids for age 45-75 03/01/2029 03/01/2024, 11/01/19 10 Colonoscopy through age 75 11/09/203311/09, 05/05/2021, 07/10/2017 Tetanus booster 06/28/2034 06/28/2024, 02/21, 02/12/1995 Tdap Completed 06/28/2024, 03/07/2014 Goals Goal Patient Goal Type Associated Problems Recent Progress Patient-Stated? Author MEDICATION - Patient will take medication as prescribed Blood Pressure On track(2017 9:03 AM CDT) Ayla Major, MARICEL Note: Use a pill job estimator to set up medications. Use an alarm or similar system for medication reminders. DIET - Patient understands and will follow prescribed diet Diet On track(2017 9:03 AM CDT) Ayla Major, MARICEL Note: Patient will follow soft food and bland diet. Drink small amounts of fluids at a time. Eat small portions of food per sitting. Do not eat or drink if you have the feeling that food or liquid is stuck in your throat. Procedures Procedure Name Priority Date/Time Associated Diagnosis Comments STOOL PATHOGEN MULTIPLEX PCR PANEL Routine 10/26/2024 10:50 AM [facility] Bloody stool CT ABDOMEN PELVIS W RAUDEL 10/26/2024 8 :38 AM [facility] Bloody stool RED CELL MORPHOLOGY STAT 10/26/2024 8 :27 AM [facility] Bloody stool PLATELET ESTIMATE STAT 10/26/2024 8:2 7 AM [facility] Bloody stool MANUAL DIFFERENTIAL STAT 10/26/2024 8 :27 AM [facility] Bloody stool CBC WITH AUTO DIFFERENTIAL STAT 10/26/2024 8:27 AM [facility] Bloody stool COMP METABOLIC PANEL STAT 10/26/2024 8:27 AM [facility] Bloody stool CBC WITH AUTO DIFFERENTIAL STAT 10/26/2024 8:27 AM [facility] Bloody stool CT HEAD BRAIN WO STAT 10/20/2024 9:00 PM [facility] EKG 12 LEAD STAT 10/20/2024 8:35 PM [facility] MR SPINE LUMBAR WO Routine 10/11/2024 11 :20 AM [facility] Chronic left-sided low back pain with left-sided sciatica EMG Routine 09/06/2024 Paresthesia and pain of both upper extremities Paresthesia of both lower extremities LIPID PANEL W REFLEX MEASURED LDL Routine 03/01/2024 2:22 PM CDT Screening cholesterol level SCAN-COLONOSCOPY 11/10/2023 2:00 PM CDT from Last 3 Months or Most Recently Relevant to Health Maintenance Results * (ABNORMAL) STOOL PATHOGEN MULTIPLEX PCR PANEL (10/26/2024 10:50 AM [facility]) Campylobacter Detected(A) NOT Detected 10/27/2024 12:20 PM [facility] Salmonella NOT Detected NOT Detected 10/27/2024 12:20 PM [facility] Shigella NOT Detected NOT Detected 10/27/2024 12:20 PM [facility] Vibrio NOT Detected NOT Detected 10/27/2024 12:20 PM [facility] Yersinia Enterocolitica NOT Detected NOT Detected 10/27/2024 12:20 PM [facility] Shiga Toxin 1 NOT Detected NOT Detected 10/27/2024 12:20 PM [facility] Shiga Toxin 2 NOT Detected NOT Detected 10/27/2024 12:20 PM [facility] Norovirus NOT Detected NOT Detected 10/27/2024 12:20 PM [facility] Rotavirus NOT Detected NOT Detected 10/27/2024 12:20 PM [facility] Stool STOOL SPECIMEN / Unknown Non-Blood / Unknown 10/26/2024 10:50 AM [facility] 10/26/2024 11:07 AM [facility] - 10/27/2024 12:20 PM [facility] This test is a Culture Independent Diagnostic Test (CIDT) therefore isolates are not available for susceptibility testing. Antibiotic treatment is often contraindicated and may be detrimental in cases of enteric infections, thus routine susceptibility testing is not recommended. Bibiana Lazar MD MICROBIOLOGY Final Resu lt [facility] [address] [place] [address], [place] * CT ABDOMEN PELVIS W (10/26/2024 8:38 AM [facility]) Anatomical Region Laterality Modality Abdomen, Pelvis, AORTA, LIVER, SPLEEN Computed Tomography 10/26/2024 9:25 AM [facility] Impressions 10/26/2024 9:25 AM [facility] 1. No acute intra-abdominal or pelvic abnormality. 2. Multifocal areas of apparent colonic wall thickening are of uncertain significance and could be physiologic. However, given the history of GI bleed, endoscopy correlation is recommended if not recently performed. Dictated by Sylvain Salgado MD @ 10/26/2024 9:25:07 AM Please note that all CT scans at this facility use dose modulation, iterative reconstruction, and/or weight-based dosing when appropriate to reduce radiation dose to as low as reasonably achievable. Dictated by: Sylvain Salgado MD @ 10/26/2024 09:25:20 (Electronically Signed) Narrative 10/26/2024 9:25 AM [facility] For Patients: As a result of the Cures Act, medical imaging exams and procedure reports are released immediately into your electronic medical record. You may view this report before your referring provider. If you have questions, please contact your health care provider. INDICATION: Bloody stool. GI bleed. TECHNIQUE: CT abdomen and pelvis acquired with 100 mL of Omnipaque 300 IV contrast. COMPARISON: CT abdomen and pelvis with contrast 07/08/2024. CT abdomen and pelvis 06/04/2019. FINDINGS: Lower chest: Stable 9 mm left lower lobe nodule on image 48 of series 2 consistent with a benign etiology. Lung bases are otherwise clear. No pleural or pericardial effusions. Liver: Fatty change in multiple low-density lesions most consistent with cysts, as before. Spleen: Unremarkable. Pancreas: Unremarkable. Gallbladder and bile ducts: No calcified stones or biliary ductal dilatation. Kidneys: Unremarkable. Adrenal glands: Unremarkable. GI tract: Multifocal areas of apparent colonic wall thickening are of uncertain significance but greatest in the distal colon. No CT evidence of discrete gastrointestinal tract lesion. No obstruction or focal inflammatory changes. Normal appendix. No free air or free fluid. Lymph nodes: No pathologic lymphadenopathy. Vascular structures: Unremarkable. Pelvic Organs: Unremarkable. Bones: No acute or suspicious osseous abnormality. Procedure Note Sylvain Salgado DO - 10/26/2024 For Patients: As a result of the Cures Act, medical imagingexams and procedure reports are released immediately into your electronicmedical record. You may view this report before your referring provider.If you have questions, please contact your health care provider. INDICATION: Bloody stool. GI bleed. TECHNIQUE: CT abdomen and pelvis acquired with 100 mL of Omnipaque 300 IV contrast. COMPARISON: CT abdomen and pelvis with contrast 07/08/2024. CT abdomen and pelvis 06/04/2019. FINDINGS: Lower chest: Stable 9 mm left lower lobe nodule on image 48 of series 2consistent with a benign etiology. Lung bases are otherwise clear. Nopleural or pericardial effusions. Liver: Fatty change in multiple low-density lesions most consistent withcysts, as before. Spleen: Unremarkable. Pancreas: Unremarkable. Gallbladder and bile ducts: No calcified stones or biliary ductaldilatation. Kidneys: Unremarkable. Adrenal glands: Unremarkable. GI tract: Multifocal areas of apparent colonic wall thickening are ofuncertain significance but greatest in the distal colon. No CT evidence ofdiscrete gastrointestinal tract lesion. No obstruction or focalinflammatory changes. Normal appendix. No free air or free fluid. Lymph nodes: No pathologic lymphadenopathy. Vascular structures: Unremarkable. Pelvic Organs: Unremarkable. Bones: No acute or suspicious osseous abnormality. IMPRESSION: 1. No acute intra-abdominal or pelvic abnormality. 2. Multifocal areas of apparent colonic wall thickening are of uncertainsignificance and could be physiologic. However, given the history of GIbleed, endoscopy correlation is recommended if not recently performed. Dictated by Sylvain Salgado MD @ 10/26/2024 9:25:07 AM Please note that all CT scans at this facility use dose modulation,iterative reconstruction, and/or weight-based dosing when appropriate toreduce radiation dose to as low as reasonably achievable. Dictated by: Sylvain Salgado MD @ 10/26/2024 09:25:20 (Electronically Signed) us Bibiana Lazar MD CT Final Resu lt * CBC WITH AUTO DIFFERENTIAL (10/26/2024 8:27 AM [facility]) WHITE BLOOD COUNT 5.5 4.5 - 11.0 thou/cu mm 10/26/2024 9:19 AM [facility] RED BLOOD COUNT 5.03 4.30 - 5.90 mil/cu mm 10/26/2024 9:19 AM [facility] HEMOGLOBIN 14.3 13.5 - 17.5 g/dL 10/26/2024 9:19 AM [facility] HEMATOCRIT 43.3 37.0 - 53.0 % 10/26/2024 9:19 AM [facility] MCV 86 80 - 100 fL 10/26/2024 9:19 AM [facility] MCH 28.4 26.0 - 34.0 pg 10/26/2024 9:19 AM [facility] MCHC 33.0 32.0 - 36.0 g/dL 10/26/2024 9:19 AM [facility] RDW 13.2 11.5 - 15.5 % 10/26/2024 9:19 AM [facility] PLATELET COUNT 215 140 - 440 thou/cu mm 10/26/2024 9:19 AM [facility] MPV 9.6 6.5 - 11.0 fL 10/26/2024 9:19 AM [facility] Blood BLOOD SPECIMEN / Unknown [facility] / Unknown 10/26/2024 8:27 AM [facility] 10/26/2024 8:27 AM [facility] us Bibiana Lazar MD HEMATOLOGY Final Resu lt [facility] [address] [place] [address] * RED CELL MORPHOLOGY (10/26/2024 8:27 AM [facility]) RBC COMMENT RBC morphology appears normal RBC morphology appears normal, RBC morphology within normal limits for newborns. 10/26/2024 9:19 AM [facility] LARGE PLATELETS Present 10/26/2024 9:19 AM [facility] WBC REACTIVE LYMPHS Present 10/26/2024 9:19 AM [facility] Blood BLOOD SPECIMEN / Unknown [facility] / Unknown 10/26/2024 8:27 AM [facility] 10/26/2024 8:27 AM [facility] us Bibiana Lazar MD HEMATOLOGY Final Resu lt [facility] [address] [place] [address] * PLATELET ESTIMATE (10/26/2024 8:27 AM [facility]) PLATELET ESTIMATE Adequate Adequate, No estimate 10/26/2024 9:19 AM [facility] Blood BLOOD SPECIMEN / Unknown [facility] / Unknown 10/26/2024 8:27 AM [facility] 10/26/2024 8:27 AM [facility] us Bibiana Lazar MD HEMATOLOGY Final Resu lt [facility] [address] [place] [address] * MANUAL DIFFERENTIAL (10/26/2024 8:27 AM [facility]) % NEUTROPHILS 48.0 % 10/26/2024 9:19 AM [facility] % LYMPHOCYTES 35.0 % 10/26/2024 9:19 AM [facility] % MONOCYTES 14.0 % 10/26/2024 9:19 AM [facility] % EOSINOPHILS 2.0 % 10/26/2024 9:19 AM [facility] % BASOPHILS 1.0 % 10/26/2024 9:19 AM [facility] NEUTROPHILS ABSOLUTE 2.6 1.7 - 7.0 thou/cu mm 10/26/2024 9:19 AM [facility] LYMPHOCYTES ABSOLUTE 1.9 0.9 - 2.9 thou/cu mm 10/26/2024 9:19 AM [facility] MONOCYTES ABSOLUTE 0.8 <0.9 thou/cu mm 10/26/2024 9:19 AM [facility] EOSINOPHILS ABSOLUTE 0.1 <0.5 thou/cu mm 10/26/2024 9:19 AM [facility] BASOPHILS ABSOLUTE 0.1 <0.3 thou/cu mm 10/26/2024 9:19 AM [facility] Blood BLOOD SPECIMEN / Unknown [facility] / Unknown 10/26/2024 8:27 AM [facility] 10/26/2024 8:27 AM [facility] us Bibiana Lazar MD HEMATOLOGY Final Resu lt [facility] [address] [facility] [place] [address] * (ABNORMAL) STAT Comp Metabolic Panel CMP (10/26/2024 8:27 AM [facility]) SODIUM 142 136 - 145 mmol/L 10/26/2024 8:53 AM [facility] POTASSIUM 3.9 3.5 - 5.1 mmol/L 10/26/2024 8:53 AM [facility] CHLORIDE 104 98 - 107 mmol/L 10/26/2024 8:53 AM [facility] CO2,TOTAL 28 22 - 29 mmol/L 10/26/2024 8:53 AM [facility] ANION GAP 10 5 - 18 10/26/2024 8:53 AM [facility] GLUCOSE 109(H) 70 - 99 mg/dL 10/26/2024 8:53 AM [facility] CALCIUM 9.5 8.8 - 10.4 mg/dL 10/26/2024 8:53 AM [facility] Comment: Reference ranges for this test were updated on 06/28/2024 to reflect our healthy population more accurately. Reference range changes are not retroactively applied to results, but previous results using the same methodology can be interpreted in the context of the new reference range. BUN 13 6 - 20 mg/dL 10/26/2024 8:53 AM [facility] CREATININE 1.00 0.70 - 1.20 mg/dL 10/26/2024 8:53 AM [facility] BUN/CREAT RATIO 13 10 - 20 8:53 AM [facility] eGFR >90 >90 mL/min/1. 73m2 10/26/2024 8:53 AM [facility] Comment:As of 2021, eG FR is calculated by the CKD-EPI creatinine equation without race adjustment. eGFR can be influenced by muscle mass, exercise, and diet. The reported eGFR is an estimation only and is only applicable if the renal function is stable. ALBUMIN 4.2 4.0 - 4.9 g/dL 10/26/2024 8:53 AM [facility] PROTEIN,TOTAL 7.4 6.0 - 8.0 g/dL 10/26/2024 8:53 AM [facility] BILIRUBIN,TOTAL 0.4 0.0 - 1.2 mg/dL 10/26/2024 8:53 AM [facility] ALK PHOSPHATASE 51 40 - 129 IU/L 10/26/2024 8:53 AM [facility] ALT (SGPT) 51(H) 10 - 50 IU/L 10/26/2024 8:53 AM [facility] AST (SGOT) 24 10 - 50 IU/L 10/26/2024 8:53 AM [facility] Blood BLOOD SPECIMEN / Unknown [facility] / Unknown 10/26/2024 8:27 AM [facility] 10/26/2024 8:27 AM [facility] us Bibiana Lazar MD CHEMISTRY Final Resu lt [facility] [address] [place] [address] * CT HEAD BRAIN WO (10/20/2024 9:00 PM [facility]) Anatomical Region Laterality Modality HEAD, BRAIN Computed Tomogra phy 10/20/2024 9:31 PM [facility] Impressions 10/20/2024 9:31 PM [facility] 1. No acute intracranial findings. 2. Stable large polyp or mucous retention cyst in the right maxillary sinus. Please note that all CT scans at this facility use dose modulation, iterative reconstruction, and/or weight-based dosing when appropriate to reduce radiation dose to as low as reasonably achievable. Dictated by Linn Hankins MD @ 10/20/2024 9:31:41 PM (Electronically Signed) Narrative 10/20/2024 9:31 PM [facility] For Patients: As a result of the 21st Century Cures Act, medical imaging exams and procedure reports are released immediately into your electronic medical record. You may view this report before your referring provider. If you have questions, please contact your health care provider. INDICATION: Headache, sudden, severe. COMPARISON: CT head 06/03/2019. MRI brain 07/11/2024. TECHNIQUE: CT of the head without IV contrast. Coronal and sagittal reconstructions. FINDINGS: Brain: No intracranial hemorrhage or evidence of acute infarct. No mass effect or midline shift. No abnormal extra-axial fluid collections. Normal caliber ventricular system. Skull base and calvarium: Stable large polyp or mucous retention cyst in the right maxillary sinus. The visualized paranasal sinuses and mastoid air cells are otherwise clear. The visualized orbits are grossly unremarkable. No acute fracture identified. Soft tissues: Unremarkable. Procedure Note Linn Hankins MD - 10/20/2024 For Patients: As a result of the Cures Act, medical imagingexams and procedure reports are released immediately into your electronicmedical record. You may view this report before your referring provider.If you have questions, please contact your health care provider. INDICATION: Headache, sudden, severe. COMPARISON: CT head 06/03/2019. MRI brain 07/11/2024. TECHNIQUE: CT of the head without IV contrast. Coronal and sagittalreconstructions. FINDINGS: Brain: No intracranial hemorrhage or evidence of acute infarct. No masseffect or midline shift. No abnormal extra-axial fluid collections. Normalcaliber ventricular system. Skull base and calvarium: Stable large polyp or mucous retention cyst inthe right maxillary sinus. The visualized paranasal sinuses and mastoidair cells are otherwise clear. The visualized orbits are grosslyunremarkable. No acute fracture identified. Soft tissues: Unremarkable. IMPRESSION: 1. No acute intracranial findings. 2. Stable large polyp or mucous retention cyst in the right maxillarysinus. Please note that all CT scans at this facility use dose modulation,iterative reconstruction, and/or weight-based dosing when appropriate toreduce radiation dose to as low as reasonably achievable. Dictated by Linn Hankins MD @ 10/20/2024 9:31:41 PM (Electronically Signed) us Adiel Chau MD CT Final Result * EKG 12 LEAD (10/20/2024 8:35 PM [facility]) Interpretation Sinus tachycardia Pulmonary disease pattern Left anterior fascicular block Minimal voltage criteria for LVH, may be normal variant Abnormal ECG When compared with ECG of 17-Feb-2024 15:08, Vent. rate has increased by 46 bpm BEYOND NOW Ventricular Rate 118 BPM BEYOND NOW Atrial Rate 118 BPM BEYOND NOW P-R Interval 128 ms BEYOND NOW QRS Duration 90 ms BEYOND NOW QT 344 ms BEYOND NOW QTc 482 ms BEYOND NOW P [place] 45 degrees BEYOND NOW R [place] -47 degrees BEYOND NOW T [place] 8 degrees BEYOND NOW 10/20/2024 8:35 PM [facility] 10/21/2024 6:26 AM [facility] us Adiel Chau MD EKG ORD Final Result BEYOND NOW [place], [place] * MR SPINE LUMBAR WO (10/11/2024 11:20 AM [facility]) Anatomical Region Laterality Modality Spine, LUMBAR SPINE Magnetic Res onance 10/11/2024 11:4 6 AM [facility] Impressions 10/11/2024 11:46 AM [facility] 1. Mild multilevel lumbar spondylosis. 2. No significant spinal canal or neural foraminal stenosis. Dictated by Luis Armando Taylor MD @ 10/11/2024 11:46:15 AM (Electronically Signed) Narrative 10/11/2024 11:46 AM [facility] For Patients: As a result of the Century Cures Act, medical imaging exams and procedure reports are released immediately into your electronic medical record. You may view this report before your referring provider. If you have questions, please contact your health care provider. INDICATION: Chronic left-sided low back pain and sciatica. TECHNIQUE: Multisequence multiplanar MRI of the lumbar spine without the use of intravenous contrast. COMPARISON: Correlated with lumbar spine radiographs dated 06/28/2024. FINDINGS: Normal vertebral alignment and stature. Incidental L5 vertebral hemangioma. The conus medullaris terminates normally at the T12-L1 level. Unremarkable paraspinal soft tissues. T12-L1: No significant spinal canal or neural foraminal stenosis. L1-L2 and L2-L3: Mild disc desiccation. No significant spinal canal or neural foraminal stenosis. L3-L4: Shallow symmetric disc bulge. No significant spinal canal or neural foraminal stenosis. L4-L5: Shallow symmetric disc bulge. No significant spinal canal or neural foraminal stenosis. L5-S1: No significant spinal canal or neural foraminal stenosis. Procedure Note Leodan Taylor MD - 10/11/2024 For Patients: As a result of the Cures Act, medical imagingexams and procedure reports are released immediately into your electronicmedical record. You may view this report before your referring provider.If you have questions, please contact your health care provider. INDICATION: Chronic left-sided low back pain and sciatica. TECHNIQUE: Multisequence multiplanar MRI of the lumbar spine without the use ofintravenous contrast. COMPARISON: Correlated with lumbar spine radiographs dated 06/28/2024. FINDINGS: Normal vertebral alignment and stature. Incidental L5 vertebralhemangioma. The conus medullaris terminates normally at the T12-L1 level.Unremarkable paraspinal soft tissues. T12-L1: No significant spinal canal or neural foraminal stenosis. L1-L2 and L2-L3: Mild disc desiccation. No significant spinal canal orneural foraminal stenosis. L3-L4: Shallow symmetric disc bulge. No significant spinal canal or neuralforaminal stenosis. L4-L5: Shallow symmetric disc bulge. No significant spinal canal or neuralforaminal stenosis. L5-S1: No significant spinal canal or neural foraminal stenosis. IMPRESSION: 1. Mild multilevel lumbar spondylosis. 2. No significant spinal canal or neural foraminal stenosis. Dictated by Luis Armando Taylor MD @ 10/11/2024 11:46:15 AM (Electronically Signed) Bessy JOE MR Final Resu lt * EMG (09/06/2024) Bessy JOE NEUROLOGY ORD Final Resu lt * (ABNORMAL) LIPID PANEL W REFLEX MEASURED LDL (03/01/2024 2:22 PM CDT) CHOLESTEROL,TOTAL 257(H) 100 - 199 mg/dL 03/02/2024 12:04 AM CDT [facility] Comment: Cholesterol, Total Reference Ranges Desirable <200 mg/dL Borderline 200-239 mg/dL High >=240 mg/dL TRIGLYCERIDES 303(H) <150 mg/dL 03/02/2024 12:04 AM CDT [facility] HDL CHOLESTEROL 36(L) >40 mg/dL 12:04 AM CDT [facility] NON-HDL CHOLESTEROL 221(H) <145 mg/dl 03/02/2024 12:04 AM CDT [facility] CHOL/HDL RATIO 7.14(H) <4.50 03/02/2024 12:04 AM CDT [facility] LDL CHOLESTEROL 160(H) <=130 mg/dL 03/02/2024 12:04 AM CDT [facility] VLDL CHOLESTEROL 61(H) <=30 mg/dL 03/02/2024 12:04 AM CDT [facility] PROVIDER ORDERED STATUS RANDOM 03/02/2024 12:04 AM CDT [facility] Blood BLOOD SPECIMEN / Unknown Venipuncture / Unknown 03/01/2024 2:22 PM CDT 03/01/2024 2:29 PM CDT us Bessy JOE CHEMISTRY Final Resu lt [facility] [address] [place] [id number], [place] * SCAN-COLONOSCOPY (11/10/2023 2:00 PM CDT) Narrative Procedure Note Patrick Lopez MD - 11/10/2023 1:15 PM CDT [facility] [address], [address], [place] [address] Patient Name: Trevon Erickson Gender: Male Exam Date: 11/10/2023 Visit Number: [id number] Age: 42 Years Date of : 1980 Attending MD: Patrick Lopez MD Medical Record#: [id number] Procedure: Colonoscopy Indications: Change in bowel habits Referring MD: Referral Self Primary MD: Bessy ALDANA Medications: Admitting Medications: 0.9% Normal Saline at TKO Intra Procedure Medications: Patient received monitored anesthesia care. Complications: No immediate complications Procedure: An examination of the heart and lungs was performed and found to be withinacceptable limits. . The patient was therefore deemed a reasonablecandidate for endoscopy and sedation. The risks and benefits of the procedure were explained to the patient.After obtaining informed consent, the patient received monitoredanesthesia care and I passed the scope without difficulty via the rectum to the ileum. The appendiceal orificeand ic valve were identified. The scope was retroflexed during theexamination The quality of the prep was excellent (Miralax/Gatorade/2tablets Bisacodyl/Magnesium Citrate). This was a complete examination throughout the entire colon. Findings: Normal finding. Location - ileum. Diverticulosis. Location: - descending colon - sigmoid. Description:mild. No inflammation present. Anal canal: Hypertrophied anal papilla vs condyloma (nodule). Biopsiesobtained. Remainder of the exam is normal. Random biopsies were taken throughout the colon to rule out microscopiccolitis. Impression: Change in bowel habit Diverticulosis of colon without diverticulitis MD impression comments: Anal nodule, either hypertrophied anal papilla vscondyloma. Biopsies obtained. Preliminary Plan: Repeat colonoscopy in 10 years If you have signs or symptoms of lower GI illness or a new diagnosis ofcolon cancer in an immediate family member, you should contact your GIprovider or your primary provider to discuss whether your next examshould be repeated sooner. Recommendation Comments: Follow up biopsies results. If anal nodule iscondyloma, would recommend referral to colorectal surgery for treatment. Procedure: Upper GI Endoscopy Indications: GERD, hx of Ghazal, hx of melena, abd pain altered bowel habits Provider: Patrick Lopez MD Referring MD: Referral Self Primary MD: Bessy Menendez PAC Medications: Admitting Medication: 0.9% Normal Saline at TKO Intra Procedure Medications: Patient received monitored anesthesia care. Complications: No immediate complications Procedure: An examination of the heart and lungs was performed within acceptablelimits. . The patient was therefore deemed a reasonable candidate forsedation. The risks and benefits were explained to the patient, who appeared tounderstand. After obtaining informed consent, the scope was passed underdirect vision. Throughout the procedure the patient's blood pressure,pulse and oxygen saturations were monitored. The scope was introducedthrough the mouth and advanced to the third portion of duodenum. Findings: Esophagus: Normal esophagus. The z-line is 36 centimeters from the incisors. Top of the gastric foldsis 36 centimeters from the incisors. *Esophagus Comments: distal and mid esophageal biopsies were obtained torule out EOE. Stomach: H. Pylori biopsies taken. Previous surgical procedure:Fundoplication The diaphragm hiatus is at 36 centimeters from the incisors. Post Surgical Stomach. Previous Fundoplication. Location - cardia.Description - wrap visible.. *Stomach Comments: erosions and erythema in the mid and distal body overthe greater curvature. Duodenum: Normal duodenum. Celiac Sprue biopsies taken. Celiac Sprue biopsies taken. Impression: Altered bowel habits Chronic GERD Melena Impression Comments: Normal esophagus. Intact Ghazal wrap. Erosive gastritis. DDx include NSAID's use, H pylori, etc. Normal duodenum. Preliminary Plan: Recommendation Comments: Avoid NSAID's. Follow up biopsies results. Proceed with colonoscopy. Pathology Results: A: ESOPHAGUS, DISTAL, BIOPSY: 1. Normal squamous mucosa 2. Negative for reflux changes and eosinophilic esophagitis 3. Negative for columnar mucosa B: ESOPHAGUS, MID, BIOPSY: 1. Normal squamous mucosa 2. Negative for reflux changes and eosinophilic esophagitis 3. Negative for columnar mucosa C: STOMACH, BIOPSY: 1. Normal gastric antral and body mucosae 2. Negative for Helicobacter D: DUODENUM, BIOPSY: 1. Normal duodenal mucosa 2. Negative for celiac disease and other enteropathy E: ANUS, NODULE, BIOPSY: 1. Anal squamous mucosa with nonspecific reactive changes 2. Negative for condyloma and dysplasia F: COLON, RANDOM, BIOPSY: 1. Normal colonic mucosa 2. Negative for microscopic, active, and chronic colitis MICROSCOPIC A: Performed B: Performed C: Performed D: Performed E: Performed F: Performed Electronically signed by: Edgar Elizabeth MD Interpreted at [facility], [address] [place], [place] [id number] Orders Instruction(s)/Education: Instruction/Education Timeframe Assessment Colon Cancer Prevention R19.4 Diverticulosis/Diverticulitis K57.30 High Fiber Diet K57.30 NSAIDS List K21.9 Final Plan: Repeat colonoscopy in 10 years for screening. If you have signs orsymptoms of lower GI illness or a new diagnosis of colon cancer in animmediate family member, you should contact [facility] or your primary providerto discuss whether your next exam should be repeated sooner. We will attempt to contact you at appropriate intervals via U.S. mail. Wemay not be able to find you or contact you at that time, therefore youshould know that the responsibility for following our recommendation restswith you. If you don't hear from us at the time your procedure is due,please contact our office to schedule an appointment. If your contactinformation should change, please contact our office so that we can updateyour record. Additional Comments: Anal nodule biopsy showed normal findings. _Electronically signed by: Patrick Lopez MD 11/10/2023 cc: Bessy ALDANA us Patrick Lopez MD OTHER Final Resul t from Last 3 Months or Most Recently Relevant to Health Maintenance Insurance [facility] * Guarantor: ORVILLE OJEDA Account Type Relation to Patient Date of Phone Billing Address [facility] [address], [place] [address] x5 (Home) [phone] (Work) ATTN KAROLINA CALDWELL [address] [address] [place] [address] Advance Directives * Full Code (Latest Code Status on File) Date Activated Date Inactivated Comments 10/21/2023 11:57 AM 10/22/2023 6:36 PM Question Answer Comments Code Status Discussion: Reviewed Preferences * Full Code Date Activated Date Inactivated Comments 11/29/2021 1:59 AM 12/01/2021 2:52 PM Question Answer Comments Code Status Discussion: Reviewed Preferences * Full Code Date Activated Date Inactivated Comments 05/03/2021 11:37 PM 05/05/2021 7:03 PM Question Answer Comments Code Status Discussion: Discussed * Full Code Date Activated Date Inactivated Comments 03/21/2021 11:36 PM 03/22/2021 4:38 PM Question Answer Comments Code Status Discussion: Discussed * Full Code Date Activated Date Inactivated Comments 06/05/2019 4:22 AM 06/09/2019 5:23 PM Care Teams 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
[2024-11-13 17:58] VITALS: BP 135/96; PULSE 80; RESP 17; TEMP 36.6; O2SAT 98; BMI 28.7
--- NOTE | 2024-11-13 18:39 | ED.GIBLEED ---
HPI - GI Bleed General Chief complaint: GI Bleed Stated complaint: bloody stool Time Seen by Provider: 11/13/24 18:16 History of Present Illness HPI Narrative: This 43-year-old male comes in reporting some rectal bleeding over the last day or so. He states that he had symptoms like this about a month ago and was diagnosed with a Campylobacter infection. At that time he felt rather miserable and was prescribed 3 days of erythromycin. This did bring relief to his symptoms but now he is feeling some similar symptoms return. He has not had any fevers and does not report generalized malaise but does have some mild abdominal pain. Related Data Home Medications ?Medication ?Instructions ?Recorded ?Confirmed sucralfate 1 gram tablet (Carafate) 1 g PO TID 01/01/23 08/14/24 omeprazole 40 mg capsule,delayed 40 mg PO BID 10/29/23 08/14/24 release famotidine 40 mg tablet 40 mg PO DAILY PRN 08/14/24 08/14/24 gabapentin 300 mg capsule mg PO 08/14/24 08/14/24 Allergies Allergy/AdvReac Type Severity Reaction Status Date / Time No Known Drug Allergies Allergy Verified 08/14/24 11:12 Review of Systems Status of ROS: Reports: 10 or more systems reviewed and unremarkable except as noted in History and below Narrative: Constitutional: No fevers, no weight gain or loss. Eyes: No discharge. No vision changes. HENT: No congestion, no sore throat, no ear pain. Cardiovascular: No chest pain, no palpitations. Respiratory: No shortness of breath, no wheezes, no cough. Gastrointestinal: Mild abdominal pain. Bright red blood per rectum mixed in with the stool and dripping when wiping. Genitourinary: No dysuria, no hematuria. Musculoskeletal: Normal range of motion. Skin: No rashes, no pruritis. Neurological: No dizziness, weakness, sensory change, speech change. Endo/Heme/Allergies: No bruising or bleeding. No polydipsia. Pysch: no suicidality, no anxiety, no insomnia. All other systems reviewed and are negative. [facility] Medical History Chronic abdominal pain ?R10.9 - Unspecified abdominal pain (ICD-10) ?G89.29 - Other chronic pain (ICD-10) Peptic ulcer ?K27.9 - Peptic ulcer, site unspecified, unspecified as acute or chronic, without hemorrhage or perforation (ICD-10) Paraesophageal hernia ?K44.9 - Diaphragmatic hernia without obstruction or gangrene (ICD-10) Nausea and vomiting (02/06/18) ?R11.2 - Nausea with vomiting, unspecified (ICD-10) Irritable bowel syndrome (10/18/17) ?K58.9 - Irritable bowel syndrome without diarrhea (ICD-10) Gastroesophageal reflux disease ?K21.9 - Gastro-esophageal reflux disease without esophagitis (ICD-10) Anxiety and depression (07/01/17) ?F41.9 - Anxiety disorder, unspecified (ICD-10) ?F32.A - Depression, unspecified (ICD-10) Surgical History History of tonsillectomy (1984) ?Z90.89 - Acquired absence of other organs (ICD-10) History of repair of hiatal hernia (2017) ?Z98.890 - Other specified postprocedural states (ICD-10) ?Z87.19 - Personal history of other diseases of the digestive system (ICD-10) History of Ghazal fundoplication (02/06/18) ?Z98.890 - Other specified postprocedural states (ICD-10) History of esophagogastroduodenoscopy (EGD) ?Z98.890 - Other specified postprocedural states (ICD-10) History of colonoscopy ?Z98.890 - Other specified postprocedural states (ICD-10) Family History Mother Heart disease Father Heart disease Maternal Grandmother Stomach cancer Grandmother Diabetes Social History Narrative: Single, no kids, [facility], Non-smoker, Social EtOH What is your current living situation?: I presently have a place to live Problems where you live: no known problems In the past 12 months, utilities in danger of being shut off: no In past 12 months, lack of transportation kept you from medical appts, meetings, work, or getting things needed for daily living: no In the past 12 mos, have been you worried that your food would run out before you had money to buy more?: never true In the past 12 mos, the food you bought just didn't last and you didn't have money to buy more?: never true Smoking Status: Never smoker How often do you have a drink containing alcohol: monthly or less How often do you have six or more drinks on one occasion: Never AUDIT-C Alcohol total score: 1 Non-prescribed substance use: denies use How often does anyone, including family, friends and others, physically hurt you: never How often does anyone, including family, friends and others, insult or talk down to you: never How often does anyone, including family, friends and others, threaten you with harm: never How often does anyone, including family, friends and others, scream or curse at you: never service: No Exam Narrative: Exam Narrative: Constitutional: Well-developed, well-nourished, no acute distress. HEENT: Normocephalic, atraumatic. Neck: Normal range of motion. Nontender. Supple. Heart: Regular. No murmurs. Normal rate. Intact distal pulses. Lungs: Clear to auscultation. No chest discomfort. No wheezes, rhonchi, or rales. Abdomen: Normal bowel sounds. Mild tenderness in the lower abdomen. No rebound tenderness. Genitalia: Deferred. Back: No midline tenderness. Normal range of motion. Extremities: Normal range of motion. No injury. Skin: Intact. No rash. Warm. No erythema or pallor. Neurologic: No altered sensation. No weakness. Alert and oriented. Psychiatric: No suicidality. No anxiety or depression. No insomnia. Nursing notes and vitals signs are reviewed. Const: Vital Signs, click to edit/add: Vital Signs - 24 hr 11/13/24 17:58 Temperature 98 F Pulse Rate [Pulse Oximeter] 80 Respiratory Rate 17 Blood Pressure [Ri ght Upper Arm] 135/96 H Pulse Oximetry 98 Oxygen Delivery Me thod Room Air Course Vital Signs Vital signs: Initial Vital Signs Temperature 98 F 11/13/24 17:58 Temperature Source Temporal Artery Scan 11/13/24 17:58 Pulse Rate 80 11/13/24 17:58 Respiratory Rate 17 11/13/24 17:58 Blood Pressure 135/96 H 11/13/24 17:58 Blood Pressure Mean 109 H 11/13/24 17:58 Pulse Oximetry 98 11/13/24 17:58 Oxygen Delivery Method Room Air 11/13/24 17:58 Vital Signs Temperature 98 F 11/13/24 17:58 Pulse Rate 80 11/13/24 17:58 Respiratory Rate 17 11/13/24 17:58 Blood Pressure 135/96 H 11/13/24 17:58 Pulse Oximetry 98 11/13/24 17:58 Oxygen Delivery Method Room Air 11/13/24 17:58 Temperature 98 F 11/13/24 17:58 Pulse Rate 80 11/13/24 17:58 Respiratory Rate 17 11/13/24 17:58 Blood Pressure 135/96 H 11/13/24 17:58 Pulse Oximetry 98 11/13/24 17:58 Oxygen Delivery Method Room Air 11/13/24 17:58 MDM - GI Bleed MDM Narrative Medical decision making narrative: This patient appears to have recurrent symptoms from a Campylobacter infection that was treated just for 3 days about a month ago. He did get better but comes in now with recurrent blood per rectum as described above. He arrives here with normal vital signs. I did discuss lab and imaging options with the patient who declined these for now. I did review treatment guidelines for this type of infection and elected to give him a 1 time dose of ertapenem 1 g intramuscularly. He then received a prescription for Cipro 500 mg twice daily for 10 days. I did describe signs and symptoms that would indicate a need for return and re-evaluation. Discharge Plan Discharge Clinical Impression: Colitis due to Campylobacter species Prescriptions: No Action sucralfate [Carafate] 1 gram tablet 1 g PO TID omeprazole 40 mg capsule,delayed release(DR/EC) 40 mg PO BID gabapentin 300 mg capsule PO famotidine 40 mg tablet 40 mg PO DAILY PRN Follow Up/Referrals: Bessy Menendez PA-C [Primary Care Provider] -
--- OUTSIDE RECORDS SUMMARY | 2024-11-13 18:45 | XMS_ITS | Clinical Summary ---
Author Organization [facility] Address [address] [place] [address] Care Team Providers Care Home Care Liaison Name Role Phone Unavailable Primary Care Provider Unavailabl e Source Comments You are receiving this document as you are listed as the primary care provider,follow-up provider, or the patient has been referred to you for consultation.This is in compliance with the Medicare and[facility] EHR Incentive Program,which states Providers who transition their patient to another setting of careor provider of care or refers their patient to another provider of care shouldprovide summary care record for each transition of care or referral. [employer] Active Problems Problem Noted Date Diagnosed Date Abdominal distension, gaseous 09/29/2018 Nausea and vomiting 02/06/2018 History of Ghazal fundoplication 02/06/2018 Irritable bowel syndrome 10/18/2017 Pain 07/22/2017 Hypokalemia 07/01/2017 Epigastric pain 07/01/2017 Anxiety and depression 07/01/2017 GERD (gastroesophageal reflux disease) 7 Gastritis and duodenitis 04/03/2017 Acute gastric ulcer without hemorrhage or perfor ation 04/03/2017 Esophagitis, [place] grade C 04/03/2017 Hemiparesis 10/07/2016 Mass of joint of left shoulder 08/01/2016 Shoulder pain 10/05/[address] of the chest Paraesophageal hernia Diarrhea Resolved Problems Problem Noted Date Diagnosed Date Resolved Date Vomiting 01/06/2018 02/06/2018 Depression 02/04/2015 02/06/2018 Immunizations Immunization Administration Dates Next Due Flu Vac (3+ yrs) 09/13/2013,05/16/2009 Fluzone Qiv Multidose Vial 0.25 (6-35 Mos) 06/17 Influenza IIV4 (Quadrivalent) 0.5mL (69519) 05/25,06/25/2017,08/03/2014 Td 02/12/1995 Tdap 03/07/2014 Family History [...] patient's age to complete this topic Insurance [facility] Advance Directives * Full Code (Latest Code Status on File) Date Activated Date Inactivated Comments 02/04/2015 8:00 AM 02/03/2015 7:00 PM * Full Code Date Activated Date Inactivated Comments 02/04/2015 8:00 AM 02/06/2015 8:24 AM
--- OUTSIDE RECORDS SUMMARY | 2024-11-13 18:45 | XMS_ITS | Clinical Summary ---
Author Organization [facility] Address [address] [place] [address] Care Team Providers Care Lens Edger Name Role Phone Elsewhere, Pcp Primary Care Provider Unavailabl e Source Comments Patient records contain information from all sites at [facility]. For routine questions regarding patient records, call [phone] during business hours, M-F 8:00 AM - 5:00 PM Central Time. Record requests for emergency care only can be directed to [phone] at any time.[facility] Allergies No known active allergies Medications acetaminophen [...] of the abdomen and pelvis done at [place]. A chest CT was recommended for further evaluation. Abdominal Pain 03/21/2021 Fundoplication Kierra Status Post 06/21/2019 Overview (06/21/2019): January 2018 [place], [place] Psychosocial Circumstance 08/22/2018 Adjustment Disorder 08/22/2018 [...] 2-4 stools daily, often shortly following meals, [place] 1-7 range without any specific pattern or [...] often do you attend chur ch or alevism services? More than 4 times per year 12/25/2021 Do you belong to any clubs o r organizations such as gnosticist groups, unions, fraternal or athletic groups, or [...] Answer Date Recorded PHQ-2 Score 0 06/21/2019 [facility] [place] of Occupat ional Health - Occupational Stress [...] place to sleep or slept in a senior care (including now)? Yes 12/25/2021 Nutrition Answer Date [...] PM CDT Legal Sex Male 8:30 AM [employer] Gender Identity Male 06/04/2021 12:44 PM CDT Sexual Orientation Straight 06/04/2021 12 :44 PM CDT Last Filed Vital Signs Vital Sign Reading Time Taken Comments Blood Pressure 110/78 10/19/2023 3:30 AM [employer] Pulse 83 10/19/2023 3:30 AM [employer] Temperature 36.3 C (97.3 F) 10/18/2023 10:30 PM [employer] Respiratory Rate 16 10/19/2023 3:30 AM [employer] Oxygen Saturation 93% 10/19/2023 3:30 AM [employer] Inhaled Oxygen Concentration - - Weight 87.9 kg (193 lb 12.6 oz) 024 10:18 PM [employer] Height 168.2 cm (5' 6.22) 12/25/2021 1 [...] METABOLIC PANEL, S/P STAT 10/18/2023 11:35 PM [employer] HIV-1/-2 AG AND AB SCREEN Routine 08/04/2016 4:49 AM [employer] LIPID PANEL, S Routine 08/04/2016 4:49 AM [employer] from Last 3 Months or Most Recently Relevant to Health Maintenance Results * Basic Metabolic Panel (10/18/2023 11:35 PM [employer]) Potassium, P 4.2 3.6 - 5.2 mmol/L 10/18/2023 11:57 PM [employer] [facility] Sodium, P 138 135 - 145 mmol/L 10/18/2023 11:57 PM [employer] [facility] Chloride, P 103 98 - 107 mmol/L 10/18/2023 11:57 PM [employer] [facility] Bicarbonate, P 26 22 - 29 mmol/L 10/18/2023 11:57 PM [employer] [facility] Anion Gap, P 9 7 - 15 10/18/2023 11:57 PM [employer] [facility] BUN (Blood Urea Nitrogen), P 16 8 - 24 mg/dL 10/18/2023 11:57 PM [employer] [facility] Creatinine 1.02 0.74 - 1.35 mg/dL 10/18/2023 11:57 PM [employer] [facility] Estimated GFR (eGFR) >90 >=60 mL/min/BSA 10/18/2023 11:57 PM [employer] [facility] Comment: Estimated GFR calculated using the 2020 CKD_EPI creatinine equation. Calcium, Total, P 9.3 8.6 - 10.0 mg/dL 10/18/2023 11:57 PM [employer] [facility] Glucose, P 110 70 - 140 mg/dL 10/18/2023 11:57 PM [employer] [facility] Blood (Blood, Venous) 10/18/2023 11:35 PM [employer]EL[employer] 10/18/2023 11:39 PM [employer] us Carroll Lewis M.D. LAB BLOOD ADD-ON Final Resul t [facility] [place] [address] [place] [address], [facility] [address] [place] [address] * (ABNORMAL) Lipid Panel (08/04/2016 4:49 AM [employer]EL[employer]) Cholesterol, HDL, S 44 >=40 MG/DL [facility] [place] Calculated LDL 159(H) SeeComment MG/DL [facility] [place] Comment: REFERENCE VALUE Desirable: <100 Above Desirable: 100-129 Borderline high: 130-159 High: 160-189 Very high: > or =190 Cholesterol, Total 221(H) SeeComment MG/DL [facility] [place] Comment: REFERENCE VALUE Desirable: < 200 Borderline high: 200 - 239 High: > or = 240 Triglycerides 89 SeeComment MG/DL [facility] [place] Comment: REFERENCE VALUE Normal: <150 Borderline high: 150-199 High: 200-499 Very high: > or =500 Cholesterol, Non-HDL, Calculated 177(H) SeeComment MG/DL [facility] [place] Comment: REFERENCE VALUE Desirable: <130 Above Desirable: 130-159 Borderline high: 160-189 High: 190-219 Very high: > or =220 08/04/2016 4:49 AM [employer] DEVELOPER 08/04/2016 4:49 AM [employer] DEVELOPER Teofilo Hartman M.D. LAB BLOOD ADD-ON Final Res ult Performing Organization Address [facility] Co de Phone Number [address] * HIV-1/-2 Ag and Ab Screen (08/04/2016 4:49 AM [employer] DEVELOPER) HIV-1/-2 Ag and Ab Screen, S Negative Negative [facility] [place] Comment: Negative result does not rule out HIV infection. If acute HIV infection is suspected in a high-risk individual, submit plasma specimen for HIV-1 RNA quantification test (HIVDQ) and/or HIV-2 DNA/RNA test (FHV2Q). 08/04/2016 4:49 AM [employer]ELOPER 08/04/2016 4:49 AM [employer] DEVELOPER us Teofilo Hartman M.D. LAB MICROBIOLOGY - BLOOD O RDERABLES Final Result Performing Organization Address [facility] Co de Phone Number [address] from Last 3 Months or Most Recently Relevant to [place] [address] [employer] Care Teams Lens Edger Relationship Specialty Start Date End Date Elsewhere, Pcp PCP - General Internal Medicine 10/18/23
--- OUTSIDE RECORDS SUMMARY | 2024-11-13 18:45 | XMS_ITS | Clinical Summary ---
Author Organization [facility] Address [address] [place] [address] Care Team Providers Care Sheetfed Press Operator Name Role Phone Bessy Menendez Primary Care Provider [phone] Allergies No known active allergies Medications acetaminophen [...] of the abdomen and pelvis done at [facility]. A chest CT was recommended for further evaluation. Acute on Chronic Abdominal Pain 05/03/2021 Adjustment disorder 08/22/2018 Advised about management of weight 06/28/2018 History of Ghazal fundoplication 02/06/2018 Irritable bowel syndrome 10/18/2017 Pain 07/22/2017 Anxiety and depression 07/01/2017 Epigastric pain 07/01/2017 GERD (gastroesophageal reflux disease) 7 Esophagitis, [place] grade C 04/03/2017 Gastritis and duodenitis 04/03/2017 [...] Type Department Care Team Description 10/28/[address] [facility] [address] [facility] [place] [address] Bibiana Lazar MD Lab 10/26/2024 8:33 AM CLIENT RESOURCE SPECIALIST - 10/26/2024 11:59 PM CLIENT RESOURCE SPECIALIST Hospital Encounter [facility] [address] [facility] [place] [address] Bibiana Lazar MD Bloody stool 10/26/2024 7:45 AM CLIENT RESOURCE SPECIALIST Office Visit [facility] 100 [place] [address] Bibiana Lazar MD Diarrhea (With blood in stool) 10/26/2024 Travel 10/24/2024 Nurse Triage [facility] [address] [facility] [place] [address] Bessy Menendez PA Diarrhea ( Liquid bloody diarrhea since last Thursday. Clammy, dehydrated) 10/20/2024 8:30 PM CLIENT RESOURCE SPECIALIST - 10/20/2024 11:20 PM CLIENT RESOURCE SPECIALIST Emergency [facility] 200 [place] [address] Adiel Chau MD Left leg pain (Primary Dx); Acute nonintractable headache, unspecified headache type Discharge Disposition: Home Self Care 10/20/2024 Travel 10/18/2024 1:42 PM CLIENT RESOURCE SPECIALIST - 10/18/2024 11:59 PM CLIENT RESOURCE SPECIALIST Hospital Encounter [facility] 35 [place] [address] Lasha Singh DO Becken, Amy, PT 10/18/2024 Travel 10/13/2024 8:29 AM CLIENT RESOURCE SPECIALIST - 10/13/2024 11:59 PM CLIENT RESOURCE SPECIALIST Hospital Encounter [facility] 35 [place] [address] Lasha Singh DO Vinar, Kaylin J, [employer] MIDDLEWARE DEVELOPER 10/13/2024 Travel 10/11/2024 11:15 AM CLIENT RESOURCE SPECIALIST Ancillary Procedure [facility] [address] [facility] 150 [place] [address] 10/11/2024 Travel 10/07/2024 11:45 AM CLIENT RESOURCE SPECIALIST - 10/07/2024 11:59 PM CLIENT RESOURCE SPECIALIST Hospital Encounter [facility] 35 [place] [address] Lasha Singh DO Becken, Amy, PT 10/06/2024 8:30 AM CLIENT RESOURCE SPECIALIST Office Visit [facility] [address] [place] [address] Bessy Menendez PA Anxiety; Back Pain 10/06/2024 Travel 09/26/2024 3:10 PM CLIENT RESOURCE SPECIALIST - 09/26/2024 11:59 PM CLIENT RESOURCE SPECIALIST Hospital Encounter [address] [address] Lasha Singh DO Becken, Amy, PT 09/26/2024 Travel 09/20/2024 1:29 PM CLIENT RESOURCE SPECIALIST - 09/20/2024 11:59 PM CLIENT RESOURCE SPECIALIST Hospital Encounter [address] [address] Lasha Singh DO Becken, Amy, PT 09/20/2024 Travel 09/14/2024 12:15 PM CLIENT RESOURCE SPECIALIST Office Visit [facility] [address] [facility] [address] [place] [address] Lasha Singh DO Follow Up (Recheck Neck/Back Pain) 09/14/2024 Travel 09/12/2024 3:08 PM CLIENT RESOURCE SPECIALIST - 09/12/2024 11:59 PM CLIENT RESOURCE SPECIALIST Hospital Encounter [address] [address] Lasha Singh DO Becken, Amy, PT 09/12/2024 Travel 09/06/2024 12:48 PM CLIENT RESOURCE SPECIALIST - 09/06/2024 11:59 PM CLIENT RESOURCE SPECIALIST Hospital Encounter [facility] [address] [address] Bessy Menendez PA Beck, Elizabeth Haule, MD Paresthesia and pain of both upper extremities; Paresthesia of both lower extremities 09/06/2024 Travel 09/01/2024 9:26 AM CLIENT RESOURCE SPECIALIST - 09/01/2024 11:59 PM CLIENT RESOURCE SPECIALIST Hospital Encounter [address] [address] Lasha Singh DO Becken, Amy, PT 09/01/2024 Travel 08/23/2024 7:45 AM CLIENT RESOURCE SPECIALIST - 08/23/2024 11:59 PM CLIENT RESOURCE SPECIALIST Hospital Encounter [facility] [address] [facility] [place] [place] [address] Lasha Singh DO Becken, Dayanna, PT Paresthesia [...] on file Legal Sex Male 5:23 AM CLIENT RESOURCE SPECIALIST Gender Identity Not on file Sexual Orientation Not on file 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 Not on file Not on file Not on file Obstetrics History Last Filed Vital Signs Vital Sign Reading Time Taken Comments Blood Pressure 120/70 10/26/2024 7:45 AM CLIENT RESOURCE SPECIALIST Pulse 89 10/26/2024 7:45 AM CLIENT RESOURCE SPECIALIST Temperature 36.4 C (97.6 F) 10/26/2024 7:45 AM CLIENT RESOURCE SPECIALIST Respiratory Rate 16 10/20/2024 8:36 PM CLIENT RESOURCE SPECIALIST Oxygen Saturation 96% 10/26/2024 7:45 AM CLIENT RESOURCE SPECIALIST Inhaled Oxygen Concentration - - Weight 80.7 kg (178 lb) 10/26/2024 7:45 AM CLIENT RESOURCE SPECIALIST Height 167.6 cm (5' 6) 10/26/2024 7:45 AM CLIENT RESOURCE SPECIALIST Body Mass Index 28.73 10/26/2024 7:45 AM CLIENT RESOURCE SPECIALIST Plan of Treatment Upcoming Encounters Date Type Department Care Team (Late st Contact Info) Description 11/15/2024 2:30 PM CDT Appointment [address] [address] Imani Limon, [employer] MIDDLEWARE DEVELOPER 200 [place] [address] 11/25/2024 8:45 AM CDT Appointment [facility] 35 [place] [address] Dayanna Yang, PT 35 [place] [address] Health Maintenance Due Date Last Done Comments [...] Ayla Major, MARICEL Note: Use a pill distribution spec to set up medications. Use an alarm [...] MULTIPLEX PCR PANEL Routine 10/26/2024 10:50 AM CLIENT RESOURCE SPECIALIST Bloody stool CT ABDOMEN PELVIS W RAUDEL 10/26/2024 8 :38 AM CLIENT RESOURCE SPECIALIST Bloody stool RED CELL MORPHOLOGY STAT 10/26/2024 8 :27 AM CLIENT RESOURCE SPECIALIST Bloody stool PLATELET ESTIMATE STAT 10/26/2024 8:2 7 AM CLIENT RESOURCE SPECIALIST Bloody stool MANUAL DIFFERENTIAL STAT 10/26/2024 8 :27 AM CLIENT RESOURCE SPECIALIST Bloody stool CBC WITH AUTO DIFFERENTIAL STAT 10/26/2024 8:27 AM CLIENT RESOURCE SPECIALIST Bloody stool COMP METABOLIC PANEL STAT 10/26/2024 8:27 AM CLIENT RESOURCE SPECIALIST Bloody stool CBC WITH AUTO DIFFERENTIAL STAT 10/26/2024 8:27 AM CLIENT RESOURCE SPECIALIST Bloody stool CT HEAD BRAIN WO STAT 10/20/2024 9:00 PM CLIENT RESOURCE SPECIALIST EKG 12 LEAD STAT 10/20/2024 8:35 PM CLIENT RESOURCE SPECIALIST MR SPINE LUMBAR WO Routine 10/11/2024 11 :20 AM CLIENT RESOURCE SPECIALIST Chronic left-sided low back pain with left-sided [...] PATHOGEN MULTIPLEX PCR PANEL (10/26/2024 10:50 AM CLIENT RESOURCE SPECIALIST) Campylobacter Detected(A) NOT Detected 10/27/2024 12:20 PM CLIENT RESOURCE SPECIALIST [facility] Salmonella NOT Detected NOT Detected 10/27/2024 12:20 PM CLIENT RESOURCE SPECIALIST [facility] Shigella NOT Detected NOT Detected 10/27/2024 12:20 PM CLIENT RESOURCE SPECIALIST [facility] Vibrio NOT Detected NOT Detected 10/27/2024 12:20 PM CLIENT RESOURCE SPECIALIST [facility] Yersinia Enterocolitica NOT Detected NOT Detected 10/27/2024 12:20 PM CLIENT RESOURCE SPECIALIST [facility] Shiga Toxin 1 NOT Detected NOT Detected 10/27/2024 12:20 PM CLIENT RESOURCE SPECIALIST [facility] Shiga Toxin 2 NOT Detected NOT Detected 10/27/2024 12:20 PM CLIENT RESOURCE SPECIALIST [facility] Norovirus NOT Detected NOT Detected 10/27/2024 12:20 PM CLIENT RESOURCE SPECIALIST [facility] Rotavirus NOT Detected NOT Detected 10/27/2024 12:20 PM CLIENT RESOURCE SPECIALIST [facility] Stool STOOL SPECIMEN / Unknown Non-Blood / Unknown 10/26/2024 10:50 AM CLIENT RESOURCE SPECIALIST 10/26/2024 11:07 AM CLIENT RESOURCE SPECIALIST [facility] - 10/27/2024 12:20 PM CLIENT RESOURCE SPECIALIST This test is a Culture Independent Diagnostic Test (CIDT) therefore isolates are not available for susceptibility testing. Antibiotic treatment is often contraindicated and may be detrimental in cases of enteric infections, thus routine susceptibility testing is not recommended. Bibiana Lazar MD MICROBIOLOGY Final Resu lt [facility] [address] [place] [address], [place] * CT ABDOMEN PELVIS W (10/26/2024 8:38 AM CLIENT RESOURCE SPECIALIST) Anatomical Region Laterality Modality Abdomen, Pelvis, AORTA, LIVER, SPLEEN Computed Tomography 10/26/2024 9:25 AM CLIENT RESOURCE SPECIALIST Impressions 10/26/2024 9:25 AM CLIENT RESOURCE SPECIALIST 1. No acute intra-abdominal or pelvic abnormality. [...] 09:25:20 (Electronically Signed) Narrative 10/26/2024 9:25 AM CLIENT RESOURCE SPECIALIST For Patients: As a result of the [...] CBC WITH AUTO DIFFERENTIAL (10/26/2024 8:27 AM CLIENT RESOURCE SPECIALIST) WHITE BLOOD COUNT 5.5 4.5 - 11.0 thou/cu mm 10/26/2024 9:19 AM CLIENT RESOURCE SPECIALIST [facility] RED BLOOD COUNT 5.03 4.30 - 5.90 mil/cu mm 10/26/2024 9:19 AM [facility] HEMOGLOBIN 14.3 13.5 - 17.5 g/dL 10/26/2024 9:19 AM [facility] HEMATOCRIT 43.3 37.0 - 53.0 % 10/26/2024 9:19 AM [facility] MCV 86 80 - 100 fL 10/26/2024 9:19 AM [facility] MCH 28.4 26.0 - 34.0 pg 10/26/2024 9:19 AM [facility] MCHC 33.0 32.0 - 36.0 g/dL 10/26/2024 9:19 AM [facility] RDW 13.2 11.5 - 15.5 % 10/26/2024 9:19 AM [facility] PLATELET COUNT 215 140 - 440 thou/cu mm 10/26/2024 9:19 AM [facility] MPV 9.6 6.5 - 11.0 fL 10/26/2024 9:19 AM [facility] Blood BLOOD SPECIMEN / Unknown [facility] / Unknown 10/26/2024 8:27 AM CLIENT RESOURCE SPECIALIST 10/26/2024 8:27 AM CLIENT RESOURCE SPECIALIST us Bibiana Lazar MD HEMATOLOGY Final Resu lt [facility] 200 [place] [address] * RED CELL MORPHOLOGY (10/26/2024 8:27 AM CLIENT RESOURCE SPECIALIST) RBC COMMENT RBC morphology appears normal RBC morphology appears normal, RBC morphology within normal limits for newborns. 10/26/2024 9:19 AM [facility] LARGE PLATELETS Present 10/26/2024 9:19 AM [facility] WBC REACTIVE LYMPHS Present 10/26/2024 9:19 AM [facility] Blood BLOOD SPECIMEN / Unknown [facility] / Unknown 10/26/2024 8:27 AM CLIENT RESOURCE SPECIALIST 10/26/2024 8:27 AM CLIENT RESOURCE SPECIALIST us Bibiana Lazar MD HEMATOLOGY Final Resu lt [facility] [address] [place] [address] * PLATELET ESTIMATE (10/26/2024 8:27 AM CLIENT RESOURCE SPECIALIST) PLATELET ESTIMATE Adequate Adequate, No estimate 10/26/2024 9:19 AM [facility] Blood BLOOD SPECIMEN / Unknown [facility] / Unknown 10/26/2024 8:27 AM CLIENT RESOURCE SPECIALIST 10/26/2024 8:27 AM CLIENT RESOURCE SPECIALIST us Bibiana Lazar MD HEMATOLOGY Final Resu lt [facility] [address] [place] [address] * MANUAL DIFFERENTIAL (10/26/2024 8:27 AM CLIENT RESOURCE SPECIALIST) % NEUTROPHILS 48.0 % 10/26/2024 9:19 AM [facility] % LYMPHOCYTES 35.0 % 10/26/2024 9:19 AM [facility] % MONOCYTES 14.0 % 10/26/2024 9:19 AM [facility] % EOSINOPHILS 2.0 % 10/26/2024 9:19 AM [facility] % BASOPHILS 1.0 % 10/26/2024 9:19 AM [facility] NEUTROPHILS ABSOLUTE 2.6 1.7 - 7.0 thou/cu mm 10/26/2024 9:19 AM [facility] LYMPHOCYTES ABSOLUTE 1.9 0.9 - 2.9 thou/cu mm 10/26/2024 9:19 AM [facility] MONOCYTES ABSOLUTE 0.8 <0.9 thou/cu mm 10/26/2024 9:19 AM [facility] EOSINOPHILS ABSOLUTE 0.1 <0.5 thou/cu mm 10/26/2024 9:19 AM [facility] BASOPHILS ABSOLUTE 0.1 <0.3 thou/cu mm 10/26/2024 9:19 AM [facility] Blood BLOOD SPECIMEN / Unknown [facility] / Unknown 10/26/2024 8:27 AM CLIENT RESOURCE SPECIALIST 10/26/2024 8:27 AM CLIENT RESOURCE SPECIALIST us Bibiana Lazar MD HEMATOLOGY Final Resu lt [facility] [address] [place] [address] * (ABNORMAL) STAT Comp Metabolic Panel CMP (10/26/2024 8:27 AM CLIENT RESOURCE SPECIALIST) SODIUM 142 136 - 145 mmol/L 10/26/2024 8:53 AM [facility] POTASSIUM 3.9 3.5 - 5.1 mmol/L 10/26/2024 8:53 AM [facility] CHLORIDE 104 98 - 107 mmol/L 10/26/2024 8:53 AM [facility] CO2,TOTAL 28 22 - 29 mmol/L 10/26/2024 8:53 AM [facility] ANION GAP 10 5 - 18 10/26/2024 8:53 AM [facility] GLUCOSE 109(H) 70 - 99 mg/dL 10/26/2024 8:53 AM [facility] CALCIUM 9.5 8.8 - 10.4 mg/dL 10/26/2024 8:53 AM [facility] Comment: Reference ranges for this test were updated on 06/28/2024 to reflect our healthy population more accurately. Reference range changes are not retroactively applied to results, but previous results using the same methodology can be interpreted in the context of the new reference range. BUN 13 6 - 20 mg/dL 10/26/2024 8:53 AM [facility] CREATININE 1.00 0.70 - 1.20 mg/dL 10/26/2024 8:53 AM [facility] BUN/CREAT RATIO 13 10 - 20 8:53 AM [facility] eGFR >90 >90 mL/min/1. 73m2 10/26/2024 8:53 AM [facility] Comment:As of 2021, eG FR is calculated by the CKD-EPI creatinine equation without race adjustment. eGFR can be influenced by muscle mass, exercise, and diet. The reported eGFR is an estimation only and is only applicable if the renal function is stable. ALBUMIN 4.2 4.0 - 4.9 g/dL 10/26/2024 8:53 AM [facility] PROTEIN,TOTAL 7.4 6.0 - 8.0 g/dL 10/26/2024 8:53 AM [facility] BILIRUBIN,TOTAL 0.4 0.0 - 1.2 mg/dL 10/26/2024 8:53 AM [facility] ALK PHOSPHATASE 51 40 - 129 IU/L 10/26/2024 8:53 AM [facility] ALT (SGPT) 51(H) 10 - 50 IU/L 10/26/2024 8:53 AM [facility] AST (SGOT) 24 10 - 50 IU/L 10/26/2024 8:53 AM [facility] Blood BLOOD SPECIMEN / Unknown [facility] / Unknown 10/26/2024 8:27 AM CLIENT RESOURCE SPECIALIST 10/26/2024 8:27 AM CLIENT RESOURCE SPECIALIST us Bibiana Lazar MD CHEMISTRY Final Resu lt [facility] 200 [place] [address] * CT HEAD BRAIN WO (10/20/2024 9:00 PM CLIENT RESOURCE SPECIALIST) Anatomical Region Laterality Modality HEAD, BRAIN Computed Tomogra phy 10/20/2024 9:31 PM CLIENT RESOURCE SPECIALIST Impressions 10/20/2024 9:31 PM CLIENT RESOURCE SPECIALIST 1. No acute intracranial findings. 2. Stable large polyp or mucous retention cyst in the right maxillary sinus. Please note that all CT scans at this facility use dose modulation, iterative reconstruction, and/or weight-based dosing when appropriate to reduce radiation dose to as low as reasonably achievable. Dictated by Linn Hankins MD @ 10/20/2024 9:31:41 PM (Electronically Signed) Narrative 10/20/2024 9:31 PM CLIENT RESOURCE SPECIALIST For Patients: As a result of the [...] * EKG 12 LEAD (10/20/2024 8:35 PM CLIENT RESOURCE SPECIALIST) Interpretation Sinus tachycardia Pulmonary disease pattern Left [...] NOW QTc 482 ms BEYOND NOW P [place] 45 degrees BEYOND NOW R [place] -47 degrees BEYOND NOW T [place] 8 degrees BEYOND NOW 10/20/2024 8:35 PM CLIENT RESOURCE SPECIALIST 10/21/2024 6:26 AM CLIENT RESOURCE SPECIALIST us Adiel Chau MD EKG ORD Final Result BEYOND NOW [place], [place] * MR SPINE LUMBAR WO (10/11/2024 11:20 AM CLIENT RESOURCE SPECIALIST) Anatomical Region Laterality Modality Spine, LUMBAR SPINE Magnetic Res onance 10/11/2024 11:4 6 AM CLIENT RESOURCE SPECIALIST Impressions 10/11/2024 11:46 AM CLIENT RESOURCE SPECIALIST 1. Mild multilevel lumbar spondylosis. 2. No significant spinal canal or neural foraminal stenosis. Dictated by Luis Armando Taylor MD @ 10/11/2024 11:46:15 AM (Electronically Signed) Narrative 10/11/2024 11:46 AM CLIENT RESOURCE SPECIALIST For Patients: As a result of the [...] - 199 mg/dL 03/02/2024 12:04 AM CDT [facility] Comment: Cholesterol, Total Reference Ranges Desirable <200 mg/dL Borderline 200-239 mg/dL High >=240 mg/dL TRIGLYCERIDES 303(H) <150 mg/dL 03/02/2024 12:04 AM CDT [facility] HDL CHOLESTEROL 36(L) >40 mg/dL 12:04 AM CDT [facility] NON-HDL CHOLESTEROL 221(H) <145 mg/dl 03/02/2024 12:04 AM CDT [facility] CHOL/HDL RATIO 7.14(H) <4.50 03/02/2024 12:04 AM CDT [facility] LDL CHOLESTEROL 160(H) <=130 mg/dL 03/02/2024 12:04 AM CDT [facility] VLDL CHOLESTEROL 61(H) <=30 mg/dL 03/02/2024 12:04 AM CDT [facility] PROVIDER ORDERED STATUS RANDOM 03/02/2024 12:04 AM CDT [facility] Blood BLOOD SPECIMEN / Unknown Venipuncture / Unknown 03/01/2024 2:22 PM CDT 03/01/2024 2:29 PM CDT us Bessy JOE CHEMISTRY Final Resu lt [facility] [address] [place] [id number], [place] * SCAN-COLONOSCOPY (11/10/2023 2:00 PM CDT) Narrative Procedure Note Patrick Lopez MD - 11/10/2023 1:15 PM CDT [facility] [address] [facility], [address], [place] [address] Patient Name: Trevon Erickson Gender: Male Exam Date: 11/10/2023 Visit Number: [id number] Age: 42 Years Date of : 1980 Attending MD: Patrick Lopez MD Medical Record#: [id number] Procedure: Colonoscopy Indications: Change in bowel habits [...] signed by: Edgar Elizabeth MD Interpreted at [facility], [address] [place], [place] [id number] Orders Instruction(s)/Education: Instruction/Education Timeframe Assessment Colon Cancer Prevention R19.4 Diverticulosis/Diverticulitis K57.30 High Fiber Diet K57.30 NSAIDS List K21.9 Final Plan: Repeat colonoscopy in 10 years for screening. If you have signs orsymptoms of lower GI illness or a new diagnosis of colon cancer in animmediate family member, you should contact [facility] or your primary providerto discuss whether your [...] Most Recently Relevant to Health Maintenance Insurance [facility] * Guarantor: ORVILLE OJEDA Account Type Relation to Patient Date of Phone Billing Address [facility] [address], [place] [address] x5 (Home) [phone] (Work) ATTN KAROLINA CALDWELL [address] [address] [place] [address] Advance Directives * Full Code (Latest Code [...] 4:22 AM 06/09/2019 5:23 PM Care Teams Sheetfed Press Operator Relationship Specialty Start Date End Date Bessy Menendez PA [address] [facility] [address] PCP - General Physician Dirt Shoveler 11/04/23
--- OUTSIDE RECORDS SUMMARY | 2024-11-13 18:46 | XMS_ITS | Clinical Summary ---
Author Organization [facility] Address [address] [place] [address] Care Team Providers Care Slabber Name Role Phone Unruly Joshi MD Unavailable [phone] Donny Botello Primary Care Provider [phone] Allergies No known active allergies Medications albuterol [...] on file Legal Sex Male 11:09 AM CENTRAL SERVICE SUPPLY DISTRIBUTOR Gender Identity Not on file Sexual Orientation Not on file Last Filed Vital Signs Vital Sign Reading Time Taken Comments Blood Pressure 119/77 08/06/2019 3:30 PM CENTRAL SERVICE SUPPLY DISTRIBUTOR Pulse 71 08/06/2019 3:30 PM CENTRAL SERVICE SUPPLY DISTRIBUTOR Temperature 37.2 C (98.9 F) 08/06/2019 9:44 AM CENTRAL SERVICE SUPPLY DISTRIBUTOR Respiratory Rate 18 08/06/2019 3:30 PM CENTRAL SERVICE SUPPLY DISTRIBUTOR Oxygen Saturation 99% 08/06/2019 3:30 PM CENTRAL SERVICE SUPPLY DISTRIBUTOR Inhaled Oxygen Concentration - - Weight 68.9 kg (151 lb 14.4 oz) 016 10:54 AM CENTRAL SERVICE SUPPLY DISTRIBUTOR Height 166.7 cm (5' 5.63) 08/01/2016 1 0:54 AM CENTRAL SERVICE SUPPLY DISTRIBUTOR Body Mass Index 24.79 08/01/2016 10:54 AM CENTRAL SERVICE SUPPLY DISTRIBUTOR Plan of Treatment Not on [place] [address] Care Teams Slabber Relationship Specialty Start Date End Date Donny Botello [address] [place], [place] [id number] [place] [address] PCP - General Family Practice 08/01/16 Unruly Joshi MD [address] [place], [place] [address] [place], [place] [id number] Orthopedics 07/28/16
[2024-11-13] MEDS: ERTAPENEM 1 GM inj IM (18:51)
== END 2024-11-13 19:08 | disposition home or self-care (01) ==
LOC: ED 18:43
PROVIDERS: Emergency Provider Emergency Medicine Emergency Medical Services; PCP Physician Assistant
DX: A04.5 Campylobacter enteritis (principal)
CPT/HCPCS: 96372; 99284; J1335

== ENCOUNTER 2025-02-01 20:55 | Observation (INO) | payer MEDICAID, SELFPAY ==
--- OUTSIDE RECORDS SUMMARY | 2024-06-27 08:36 | XMS_ITS | Continuity of Care Document ---
Author Organization [facility] jacqueline Address [address] [place] [address] [place] [address] Phone Care Team Providers Care Video Production Coordinator Name Role Phone Will Luis Armando ORTEZ Unavailable Unavailabl e Advance Directives Directive Yes / No Effective Date File Name No Information Encounters Encounter Description Practice Location Reason(s) For Visit Diagnoses Date Provider Providers Copied on Encounter [facility], [address] [place] [address], [id number], [place] tel:[phone] [facility] No Information Will Luis Armando. [address] [facility] [place], [place], [id number], [place]. tel:[phone] Family History Family Member Type Diagnosis Age At Onset No Information Payers Payer name Insurance type Covered constitution party ID Authoriza tion(s) No Information Social History Type Description Quantity Date Captured Comments Alcohol Use Details Unknown Caffeine Use Details Unknown Tobacco Use Status No Information Smoking Status No Information Sex Male Chief Complaint And Reason For Visit No Information Reason For Referral Reason For Referral No Information Plan Of Treatment Date Type Action Status Goal Review Allergy List. Due on due Goal PHQ-9. Due on du e Goal Unhealthy drug use screening . Due on due Goal Update Social History. Due o n due Goal Tobacco Use. Due on 024 due Goal Height. Due on d ue Goal Hepatitis C screening. Due o n due Goal Medication Reconciliation. D ue on due Goal Weight. Due on d ue Goal Lipid panel. Due on 024 due History Of Present Illness Encounter Date Complaint History Of Prese nt Illness No Information Functional Status Date Functional Assessmen t No Information Instructions Date Instruction Additional Infor mation No Information Assessments Type Assessment Date No Information Patient Care Teams Name Effective Dates (start - stop) Status Members No Information
--- OUTSIDE RECORDS SUMMARY | 2024-06-27 08:36 | XMS_ITS | Continuity of Care Document ---
Author Organization [facility] jacqueline Address [address] [place] [address] [place] [address] Phone Care Team Providers Care Wirer Passenger Car Name Role Phone Will Luis Armando ORTEZ Unavailable Unavailabl e Advance Directives Directive Yes / No Effective Date File Name No Information Encounters Encounter Description Practice Location Reason(s) For Visit Diagnoses Date Provider Providers Copied on Encounter [facility], [address] [place] [address] [place], [id number], [place] tel:[phone] [facility] No Information Will Luis Armando. [address] [facility] [place], [id number], [place]. tel:[phone] Family History Family Member Type Diagnosis Age At Onset No Information Payers Payer name Insurance type Covered republican ID Authoriza tion(s) No Information Social History Type Description Quantity Date Captured Comments Alcohol Use Details Unknown Caffeine Use Details Unknown Tobacco Use Status No Information Smoking Status No Information Sex Male Chief Complaint And Reason For Visit No Information Reason For Referral Reason For Referral No Information Plan Of Treatment Date Type Action Status Goal Lipid panel. Due on 024 due Goal Weight. Due on d ue Goal Medication Reconciliation. D ue on due Goal Hepatitis C screening. Due o n due Goal Height. Due on d ue Goal Tobacco Use. Due on 024 due Goal Update Social History. Due o n due Goal Unhealthy drug use screening . Due on due Goal PHQ-9. Due on du e Goal Review Allergy List. Due on due History Of Present Illness Encounter Date Complaint History Of Prese nt Illness No Information Functional Status Date Functional Assessmen t No Information Instructions Date Instruction Additional Infor mation No Information Assessments Type Assessment Date No Information Patient Care Teams Name Effective Dates (start - stop) Status Members No Information
--- OUTSIDE RECORDS SUMMARY | 2024-10-27 04:45 | XMS_ITS | Continuity of Care Document ---
Author Organization [facility] Address [address] [address] [place] [address] Phone Care Team Providers Care Sales Ledger Administrator Name Role Phone Darshan Engel MD Unavailable Unavailable Allergies, Adverse Reactions, Alerts Substance Reaction Status Criticality No Known Allergies Active No Inform ation Medications Medication Instructions Dosage Effective Dates (start - stop) Status Comments famotidine 40 mg tablet take 1 tablet by oral route as needed daily. - Active dicyclomine 10 mg capsule take 1 capsule by oral route 3 times every day as needed for Pain 10 MG - Active nortriptyline 10 mg capsule take 1 capsule by oral route every day at bedtime 10 MG - Active famotidine 40 mg tablet take 1 tablet by oral route every day at bedtime 40 MG - Active omeprazole 40 mg capsule,delayed release take 1 capsule by oral route every day before a meal 40 MG - Active Dulcolax (bisacodyl) 5 mg tablet,delayed release Take 2 tablets per colonoscopy prep instructions received from [facility] - Active Procedure florian e: 11/10/23 magnesium citrate oral solution Drink a 10 ounce bottle (NO RED) per colonoscopy prep instructions - Active Procedure date: 11/10/23, please dispense 1-10oz bottle simethicone 80 mg chewable tablet take by oral route as directed per COL prep instructions received from [facility] - Active Procedure florian e: 11/10/23 Miralax 17 gram/dose oral powder take by oral route as directed per COL prep instructions received from [facility] - Active Procedure florian e: 11/10/23. please dispense 1-8.3ml bottle Carafate 1 gram tablet take 1 tablet by oral route 4 times every day on an empty stomach 1 hour before meals and at bedtime 1 G - Active Procedures Procedure Date Ugi Endo; W/bx 1/mx Level Iv-surg Path Gross/micro 24 Offic/outpt E&m Estab Mod-hi 4 24 Offic/outpt E&m Estab Mod-hi 2 24 Routine Serum Collection Routine Serum Collection Offic/outpt E&m Estab Mod-hi 2 24 Routine Serum Collection Established Level 5 Offic/outpt E&m Estab Low-mod 4 Colonoscopy Flex; W/bx 1/mx Ugi Endo; W/bx 1/mx Level Iv-surg Path Gross/micro 24 Offic/outpt E&m Estab Mod-hi 2 24 Routine Serum Collection Subsqt Hosp-da E&m Stable 15 M 24 Init Inpt Cons New/est Mod-hi 4 Init Inpt Cons New/est Mod-hi 1 Ugi Endo; W/bx 1/mx Colonoscopy Flex; W/bx 1/mx Moderate Sedation, Initial 15 minutes Se Ugi Endo; W/bx 1/mx Telephone E&M I 5-10 Min MD [place] 021 Telephone E&M II 11-20 Min MD [place] Offic/outpt E&m Estab Mod-hi 2 21 Ugi Endo; W/bx 1/mx Level Iv-surg Path Gross/micro 21 Telephone E&M I 5-10 Min MD [place] 021 Telephone E&M II 11-20 Min MD [place] Virtual Visit E&m Estab Minor 10-14 Min Dilat Esoph-sound/bougie-1/mx 0 Ugi Endo; W/bx 1/mx Level Iv-surg Path Gross/micro 20 Offic/outpt E&m Estab Mod-hi 2 20 Offic/outpt E&m Estab Mod-hi 2 20 Offic/outpt E&m Estab Low-mod 9 Offic/outpt E&m Estab Low-mod 9 Subsqt Hosp-da E&m Minr Compl 9 Subsqt Hosp-da E&m Minr Compl 9 Subsqt Hosp-da E&m Minr Compl 9 Ugi Endo; W/bx 1/mx Init Inpt Cons New/est Mod-hi 9 Offic/outpt E&m Estab Low-mod 9 Routine Serum Collection Offic/outpt E&m Estab Mod-hi 2 18 Gg; Iga, Igd, Igg, Igm, Ea Comp Metabolic Panel Bld Ct; Hg/pltlt Ct Auto/compl 18 Esophageal Motility Study Subsqt Hosp-da E&m Minr Compl 8 Subsqt Hosp-da E&m Minr Compl 8 Init Hosp-da E&m Mod Severity 8 Beard PH Monitor Beard Placement Ugi Endo; W/bx 1/mx Level Iv-surg Path Gross/micro 18 Offic/outpt E&m New Mod-hi Advance Directives Directive Yes / No Effective Date File Name No Information Encounters Encounter Description Practice Location Reason(s) For Visit Diagnoses Date Provider Providers Copied on Encounter [facility] [address] [address], [place], [id number], [place] tel:[phone] [facility] Acute diarrhea 5 Toro Sexton. [address] [facility], [address], [id number], [place]. tel:[phone] [facility], [address] [address], [place], [address], [place] tel:[phone] [facility] Gastro-esopha geal reflux disease without esophagitisDy sphagia, unspecifiedGa stro-esophage al reflux disease without esophagitis 4 Linn Monique. [address] [place] [address], [id number], [place]. tel:[phone] Referring Provider: Referral Self, USE FOR SELF REFERRALS. Offic/outpt E&m Estab Mod-hi 4 [facility], [address] [address], [place], [id number], [place] tel:[phone] [facility] GI Symptoms or Concerns (chief complaint) Dietary counseling and surveillanceD yspepsiaAbdom inal wall painGastroeso phageal reflux disease, unspecified whether esophagitis present 4 Toro Sexton. [address] [place] [address], [address], [id number], [place]. tel:[phone] Referring Provider: Referral Self, USE FOR SELF REFERRALS. [facility], [address] [address], [place], [address], [place] tel:[phone] [facility] No Information 4 Fransico Larsen. [address] [facility], [address], [id number], [place]. tel:[phone] Referring Provider: Referral Self, USE FOR SELF REFERRALS. Offic/outpt E&m Estab Mod-hi 2 [facility], [address] [address], [place], [id number], [place] tel:[phone] [facility] GI Symptoms or Concerns (chief complaint) Lower abdominal painLow ceruloplasmin levelChronic GERDGait instability May-3 0- 4 Devinepngmarta Itm. [address] [facility], [address], [id number], [place]. tel:[phone] Referring Provider: Referral Self, USE FOR SELF REFERRALS. [facility], [address] [address], [place], [address], [place] tel:[phone] [facility] Low ceruloplasmin level May- 4 Devinmarta Tim. [address] [facility], [facility] [address], [place], [address], [place]. tel:[phone] [facility], [address] [address], [place], [address], [place] tel:[phone] [facility] Abnormal levels of other serum enzymes May- 4 Devinmarta DO Dumont. [address] [facility], [address], [id number], [place]. tel:[phone] Referring Provider: Referral Self, USE FOR SELF REFERRALS. [facility] [employer] [facility] [place], [address] [address], [place], [address], [place] tel:[phone] [facility] Abnormal liver enzymes May- 4 Devinpengmarta Tim. [address] [facility], [address], [id number], [place]. tel:[phone] Offic/outpt E&m Estab Mod-hi 2 [facility], [address] [address], [place], [id number], [place] tel:[phone] [facility] GI Symptoms or Concerns (chief complaint) Chronic GERDGastropar esisFamily history of colon cancer May- 4 Fransico Larsen. [address] [facility], [address], [id number], [place]. tel:[phone] Referring Provider: Referral Self, USE FOR SELF REFERRALS. [facility], [address] [address], [place], [id number], [place] tel:[phone] [facility] No Information 4 Mika Lehman. [address] [facility], [address], [id number], [place]. tel:[phone] Established Level 5 [facility], [address] [address], [place], [id number], [place] tel:[phone] [facility] GI Symptoms or Concerns (chief complaint) Left upper quadrant abdominal painBlack stoolBright red blood per rectumNauseaH eartburn Feb-0 4 Sherrill Zamudio. [address] [facility], [address], [id number], [place]. tel:[phone] Referring Provider: Referral Self, USE FOR SELF REFERRALS. [facility], [address] [address], [place], [id number], [place] tel:[phone] [facility] No Information 4 Mika Lehman. [address] [facility], [facility] [address], [place], [id number], [place]. tel:[phone] Offic/outpt E&m Estab Low-mod [facility], [address] [address], [place], [address], [place] tel:[phone] [facility] GI Symptoms or Concerns (chief complaint) LUQ painBloating 4 Gabe Richter. [address] [facility], [facility] [address], [place], [address], [place]. tel:[phone] Referring Provider: Referral Self, USE FOR SELF REFERRALS. [facility], [address] [address], [place], [id number], [place] tel:[phone] [facility] Change in bowel habitGastro-e sophageal reflux disease without esophagitisMe lenaChange in bowel habitDivertic ulosis of colon without diverticuliti sGastro-esoph ageal reflux disease without esophagitisMe lenaChange in bowel habitDvrtclos of lg int w/o perforation or abscess w/o bleeding Mar-1 9-202 4 Jessica Nguyen. [address] [facility], [facility] [address], [place], [address], [place]. tel:[phone] Referring Provider: Referral Self, USE FOR SELF REFERRALS. [facility], [address] [address], [place], [place], [address], [place] tel:[phone] [facility] No Information 4 Jessica Nguyen. [address] [facility], [facility] [address], [place], [address], [place]. tel:[phone] Offic/outpt E&m Estab Mod-hi 2 [facility], [address] [address], [place], [place], [address], [place] tel:[phone] [facility] GI Symptoms or Concerns (chief complaint) Chronic GERDHistory of Kierra fundoplicatio nBloatingAlte red bowel habitsMelena 4 Gabe Richter. [address] [facility], [facility] [address], [place], [address], [place]. tel:[phone] Referring Provider: Referral Self, USE FOR SELF REFERRALS. Subsqt Hosp-da E&m Stable 15 M [facility], [address] [address], [place], [place], [address], [place] tel:[phone] [facility] No Information 4 Daiana Perez. [address] [facility], [facility] [address], [place], [address], [place]. tel:[phone] Referring Provider: Ana Allred, [address] [facility] [address], [place], [address] . tel:[phone] Init Inpt Cons New/est Mod-hi [facility], [address] [address], [place], [place], [address], [place] tel:[phone] [facility] No Information 4 Bertin Finch. [address] [facility], [facility] [address], [place], [place], [address], [place]. tel:[phone] Referring Provider: Dayanna oNlasco [facility], [address], [place], [address]. tel:[phone] [facility], [address] [address], [place], [address], [place] tel:[phone] [facility] No Information Sep-0 3 Mika Lehman. [address] [facility] [address], [place], [place], [address], [place]. tel:[phone] [facility], [address] [address], [place], [address], [place] tel:[phone] [facility] No Information Apr-2 1 Robel Hansen. [address] [facility], [facility] [address], [place], [address], [place]. tel:[phone] Init Inpt Cons New/est Mod-hi [facility], [address] [address], [place], [address], [place] tel:[phone] [facility] No Information Apr- 1 Erik Elizalde. [address] [facility] [address], [place], [address], [place]. tel:[phone] Referring Provider: Bessy Menendez [facility], [address] [place] [address], [address]. tel:[phone] [facility], [address] [address], [place], [place], [address], [place] tel:[phone] [facility] No Information 3 1 No Information Telephone E&M I 5-10 Min [place] [facility], [address] [address], [place], [address], [place] tel:[phone] [facility] GI Symptoms or Concerns (chief complaint) Bloating symptomGastro -esophageal reflux disease without esophagitisGa stroparesis Feb-0 1 Flaco Funk. [address] [facility] [address], [place], [address], [place]. tel:[phone] Referring Provider: Referral Self, USE FOR SELF REFERRALS. Telephone E&M II 11-20 Min [place] [facility], [address] [address], [place], [id number], [place] tel:[phone] [facility] GI Symptoms or Concerns (chief complaint) Gastro-esopha geal reflux disease without esophagitisGa stroparesisOt her specified postprocedura l states 1 Flaco Funk. [address] [facility], [address], [id number], [place]. tel:[phone] Referring Provider: Donny Botello MD, [address] [place] [address], [address]. tel:[phone] [facility], [address] [address], [place], [id number], [place] tel:[phone] [facility] No Information 1 Robel Hansen. [address] [facility], [address], [id number], [place]. tel:[phone] Offic/outpt E&m Estab Mod-hi 2 [facility], [address] [address], [place], [address], [place] tel:[phone] [facility] GI Symptoms or Concerns (chief complaint) Gastroparesis LUQ painNauseaEar ly satiety 1 Hamilton Lewis. [address] [facility], [address], [id number], [place]. tel:[phone] Referring Provider: Referral Self, USE FOR SELF REFERRALS. [facility], [address] [address], [place], [id number], [place] tel:[phone] [facility] No Information 1 Flaco Funk. [address] [place] [address], [address], [id number], [place]. tel:[phone] [facility], [address] [address], [place], [address], [place] tel:[phone] [facility] Upper abdominal pain, unspecifiedOt her specified postprocedura l statesDisease of stomach and duodenum, unspecifiedOt her specified postprocedura l statesUpper abdominal pain, unspecified 1 No Information Referring Provider: Referral Self, USE FOR SELF REFERRALS. [facility], [address] [address], [place], [address], [place] tel:[phone] [facility] History of Kierra fundoplicatio n 1 Flaco Funk. [address] [facility], [facility] [address], [place], [address], [place]. tel:[phone] Telephone E&M I 5-10 Min [place] [facility], [address] [address], [place], [address], [place] tel:[phone] [facility] GI Symptoms or Concerns (chief complaint) LUQ painBloating symptomHistor y of Kierra fundoplicatio n 1 Flaco Funk. [address] [place] [address], [address], [id number], [place]. tel:[phone] Referring Provider: Referral Self, USE FOR SELF REFERRALS. [facility], [address] [address], [place], [address], [place] tel:[phone] [facility] Bloating 1 Flaco Funk. [address] [place] [address], [address], [id number], [place]. tel:[phone] Telephone E&M II 11-20 Min [place] [facility], [address] [address], [place], [address], [place] tel:[phone] [facility] Comment (chief complaint) Dysphagia, unspecifiedUp per abdominal painRectal bleed 0 Flaco Funk. [address] [place] [address], [address], [id number], [place]. tel:[phone] Referring Provider: Referral Self, USE FOR SELF REFERRALS. Virtual Visit E&m Estab Minor 10-14 Min [facility], [address] [address], [place], [id number], [place] tel:[phone] [facility] GI Symptoms or Concerns (chief complaint) Dysphagia, unspecifiedRe ctal bleed Nov- 0 Flaco Funk. [address] [facility], [address], [id number], [place]. tel:[phone] Referring Provider: Referral Self, USE FOR SELF REFERRALS. [facility], [address] [address], [place], [address], [place] tel:[phone] [facility] Dysphagia, unspecifiedRe ctal bleedDysphagi a, unspecified 0 Flaco Funk. [address] [facility], [address], [id number], [place]. tel:[phone] Referring Provider: Referral Self, USE FOR SELF REFERRALS. [facility], [address] [address], [place], [address], [place] tel:[phone] [facility] Diarrhea, unspecified typeRectal bleed 0 Flaco Funk. [address] [facility], [facility] [address], [place], [address], [place]. tel:[phone] Referring Provider: Referral Self, USE FOR SELF REFERRALS. Offic/outpt E&m Estab Mod-hi 2 [facility], [address] [address], [place], [address], [place] tel:[phone] [facility] GI Symptoms or Concerns (chief complaint) Esophageal dysphagiaBloa ting Sep- 0 Flaco Funk. [address] [place] [address], [facility] [address], [place], [address], [place]. tel:[phone] Referring Provider: Referral Self, USE FOR SELF REFERRALS. Offic/outpt E&m Estab Mod-hi 2 [facility], [address] [address], [place], [id number], [place] tel:[phone] [facility] GI Symptoms or Concerns (chief complaint) RUQ painDysphagia , unspecified type Aug- 2-202 0 Laatsch PAC Erika. [address] [place] [address], [address], [id number], [place]. tel:[phone] Referring Provider: Referral Self, USE FOR SELF REFERRALS. [facility] [place], [address] [address], [place], [address], [place] tel:[phone] [facility] Early satiety Jul- 3-201 9 Laatsch PAC Erika. [address] [place] [address], [address], [id number], [place]. tel:[phone] Offic/outpt E&m Estab Low-mod [facility], [address] [address], [place], [address], [place] tel:[phone] [facility] GI Symptoms or Concerns (chief complaint) Upper abdominal painEarly satiety 3-201 9 Laatsch PAC Erika. [address] [place] [address], [address], [id number], [place]. tel:[phone] Referring Provider: Referral Self, USE FOR SELF REFERRALS. [facility] [place], [address] [address], [place], [address], [place] tel:[phone] [facility] No Information 8-201 9 Laatsch PAC Erika. [address] [place] [address], [id number], [place]. tel:[phone] Offic/outpt E&m Estab Low-mod [facility], [address] [address], [place], [id number], [place] tel:[phone] [facility] GI Symptoms or Concerns (chief complaint) Upper abdominal pain May-2 9-201 9 Laatsch PAC Erika. [address] [place] [address], [address], [id number], [place]. tel:[phone] Referring Provider: Referral Self, USE FOR SELF REFERRALS. Subsqt Hosp-da E&m Minr Compl [facility], [address] [address], [place], [place], [address], [place] tel:[phone] [facility] No Information No Information Subsqt Hosp-da E&m Minr Compl [facility], [address] [address], [place], [place], [address], tel:[phone] [facility] No Information Chet Seymour. [address] [facility], [facility] [address], [place], [place], [address], [place]. tel:[phone] Referring Provider: Dawn Rogers, [address] [facility] [address], [place], [address] . tel:[phone] [facility], [address] [address], [place], [place], [address], [place] tel:[phone] [facility] No Information Erik Elizalde. [address] [facility], [facility] [address], [place], [place], [address], [place]. tel:[phone] Referring Provider: Donny Botello MD, [address] [place] [address], [address]. tel:[phone] Init Inpt Cons New/est Mod-hi [facility], [address] [address], [place], [place], [address], [place] tel:[phone] [facility] No Information Gerson Sutherland. [address] [facility], [facility] [address], [place], [place], [address], [place]. tel:[phone] Referring Provider: Donny Botello MD, [address] [place] [address], [address]. tel:[phone] Offic/outpt E&m Estab Low-mod [facility], [address] [address], [place], [place], [address], [place] tel:[phone] [facility] GI Symptoms or Concerns (chief complaint) Gastro-esopha geal reflux disease without esophagitisBl oatingAltered bowel habits 9 No Information Referring Provider: Donny Botello MD, [address] [place], [address]. tel:[phone] Offic/outpt E&m Estab Mod-hi 2 [facility], [address] [address], [place], [id number], [place] tel:[phone] [facility] GI Symptoms or Concerns (chief complaint) Additional Narrative (chief complaint) Gastro-esopha geal reflux disease without esophagitisDi etary counseling and surveillance 8 Ilir Warren. [address], [id number], [place]. tel:[phone] Referring Provider: Referral Self, USE FOR SELF REFERRALS. [facility] [place], [address] [address], [place], [id number], [place] tel:[phone] [facility] Gastro-esopha geal reflux disease without esophagitis 8 Andres Aguilar. [address] [facility] [address], [place], [address], [place]. tel:[phone] Referring Provider: Levar Steward, [address], [facility] [place], [address]. tel:[phone] [facility] [place], [address] [address], [place], [address], [place] tel:[phone] [facility] Gastroesophag eal reflux disease, esophagitis presence not specified 8 Andres Aguilar. [address] [facility], [facility] [address], [place], [place], [address], [place]. tel:[phone] Subsqt Hosp-da E&m Minr Compl [facility] [place], [address] [address], [place], [address], [place] tel:[phone] [facility] No Information 8 Bertin Finch. [address] [facility], [facility] [address], [place], [place], [address], . tel:[phone] Referring Provider: Levar Steward, [address], [place], [address]. tel:[phone] In Hosp-da E&m Mod Severity [facility], [address] [address], [place], [address], [place] tel:[phone] [facility] No Information 8 No Information Referring Provider: Levar Steward, [address], [place], [address]. tel:[phone] [facility] [facility], [address] [address], [place], [place], [id number], [place] tel:[phone] [facility] Gastroesophag eal reflux disease without esophagitis 8 Andres Aguilar. [address] [facility], [facility] [address], [place], [place], [id number], [place]. tel:[phone] [facility], [address] [address], [place], [place], [id number], [place] tel:[phone] [facility] Gastro-esopha geal reflux disease without esophagitis Nov- 8 Andres Aguilar. [address] [facility], [facility] [address], [place], [place], [id number], [place]. tel:[phone] Referring Provider: Jeff Allred, [address] [facility] [address], [place], [address] . tel:[phone] [facility], [address] [address], [place], [place], [id number], [place] tel:[phone] [facility] Gastro-esopha geal reflux disease without esophagitis Nov- 8 Frankie Stewart. [address] [facility], [facility] [address], [place], [place], [id number], [place]. tel:[phone] Referring Provider: Referral Self, USE FOR SELF REFERRALS. [facility], [address] [address], [place], [place], [id number], [place] tel:[phone] [facility] Gastroesophag eal reflux disease without esophagitisGa stro-esophage al reflux disease without esophagitis 8 Andres Aguilar. [address] [place] [address], [id number], [place]. tel:[phone] Referring Provider: Referral Self, USE FOR SELF REFERRALS. Offic/outpt E&m New Mod-hi [facility], [address] [address], [place], [place], [id number], tel:[phone] [facility] GI Symptoms or Concerns (chief complaint) Peptic ulcerGastroes ophageal reflux disease, esophagitis presence not specified 8 Andres Aguilar. [address] [facility] [address], [place], [id number], [place]. tel:[phone] Referring Provider: Referral Self, USE FOR SELF REFERRALS. Family History Family Member Type Diagnosis Age At Onset Mother Problem (finding) Esophagal Stricture Mother Problem (finding) diverticulitis of colon Maternal aunt Problem (finding) cancer of colon Mother Problem (finding) GERD Problem (finding) Family history of stoma ch cancer Immunizations Vaccine Date Status Comments Engerix-B administered Note: [facility] bi-d irectional interface ; Source: Other Registry tetanus toxoid, reduced diphtheria toxoid, and acellular pertussis vaccine, adsorbed administered Note: [facility] b i-directional interface ; Source: Other Registry Hepatitis B vaccine (recombinant), CpG adjuvanted administered Note: [facility] bi-directional interface ; Source: Other Registry Influenza administered Note: [facility] bi-d irectional interface ; Source: Other Registry SARS-COV-2 (COVID-19) vaccin e, mRNA, spike protein, LNP, preservative free, 100 mcg/0.5mL dose or 50 mcg/0.25mL dose administered Note: [facility] bi -directional interface ; Source: Other Registry Afluria Qd administered Note: [facility] bi-directional interface ; Source: Other Registry SARS-COV-2 (COVID-19) vaccin e, mRNA, spike protein, LNP, preservative free, 100 mcg/0.5mL dose or 50 mcg/0.25mL dose administered Note: [facility] bi -directional interface ; Source: Other Registry SARS-COV-2 (COVID-19) vaccin e, mRNA, spike protein, LNP, preservative free, 100 mcg/0.5mL dose administered Note: [facility] bi-direct ional interface ; Source: Other Registry SARS-COV-2 (COVID-19) vaccin e, mRNA, spike protein, LNP, preservative free, 100 mcg/0.5mL dose or 50 mcg/0.25mL dose administered Note: [facility] bi -directional interface ; Source: Other Registry SARS-COV-2 (COVID-19) vaccin e, mRNA, spike protein, LNP, preservative free, 100 mcg/0.5mL dose administered Note: [facility] bi-direct ional interface ; Source: Other Registry Afluria Qd administered Note: M [facility] bi-directional interface ; Source: Other Registry Afluria Qd administered Note: M [facility] bi-directional interface ; Source: Other Registry Fluzone Quad 6mo or older administered Note: [facility] bi-direct ional interface ; Source: Other Registry Fluzone Quad 6mo or older administered Source: Other Provid er Afluria Qd administered Note: M [facility] bi-directional interface ; Source: Other Registry Afluria Qd administered Note: M [facility] bi-directional interface ; Source: Other Registry Fluzone Quad 6mo or older administered Note: [facility] bi-direct ional interface ; Source: Other Registry Influenza, injectable, MDCK, preservative free Flucelvax Quad administered Source: Other Provid er Afluria Qd administered Note: M [facility] bi-directional interface ; Source: Other Registry Afluria Qd administered Note: M [facility] bi-directional interface ; Source: Other Registry Fluzone Quad 6mo or older administered Note: [facility] bi-direct ional interface ; Source: Other Registry Afluria Qd administered Note: M [facility] bi-directional interface ; Source: Other Registry Afluria Qd administered Note: M [facility] bi-directional interface ; Source: Other Registry Fluzone Quad 6mo or older administered Note: [facility] bi-direct ional interface ; Source: Other Registry Influenza, split virus, trivalent, injectable, preservative free administered Note: [facility] bi-direct ional interface ; Source: Other Registry Influenza, seasonal, injecta ble, preservative free administered Note: [facility] bi-direct ional interface ; Source: Other Registry tetanus toxoid, reduced diphtheria toxoid, and acellular pertussis vaccine, adsorbed administered Note: [facility] b i-directional interface ; Source: Other Registry Influenza administered Note: [facility] bi-d irectional interface ; Source: Other Registry Influenza, split virus, trivalent, injectable, contains preservative administered Note: [facility] bi-direct ional interface ; Source: Other Registry Influenza, seasonal, injectable administe red Note: [facility] bi- directional interface ; Source: Other Registry Influenza, split virus, trivalent, injectable, contains preservative administered Note: [facility] bi-direct ional interface ; Source: Other Registry Influenza, seasonal, injectable administe red Note: [facility] bi- directional interface ; Source: Other Registry tetanus and diphtheria toxoi ds, adsorbed, preservative free, for adult use (2 Lf of tetanus toxoid and 2 Lf of diphtheria toxoid) administered Note: [facility] bi-direct ional interface ; Source: Other Registry diphtheria, tetanus toxoids and acellular pertussis vaccine, 5 pertussis antigens administered Note: [facility] bi-direct ional interface ; Source: Other Registry tetanus and diphtheria toxoi ds, adsorbed, preservative free, for adult use (2 Lf of tetanus toxoid and 2 Lf of diphtheria toxoid) administered Note: CASE bi-direct ional interface ; Source: Other Registry diphtheria, tetanus toxoids and acellular pertussis vaccine administered Note: CASE b i-directional interface ; Source: Other Registry Payers Payer name Insurance type Covered constitution party ID Linsey campos(sHaroon Agudelo [place] [id number] Social History Type Description Quantity Date Captured Comments Alcohol Use Details Unknown Caffeine Use Details Unknown Tobacco Use Status No Information Smoking Status No Information Sex Male Chief Complaint And Reason For Visit No Information Reason For Referral Reason For Referral No Information Plan Of Treatment Date Type Action Status Goal Lifestyle education regardin g diet completed Goal Lifestyle education regardin g diet completed Referral Ordered: Xray Esophagus (Esophagram, Barium Swallow Study) Appointment date/timeframe: 08/01/2024 ordered Referral Ordered: referred to Pain Medicine abdominal wall pain Appointment date/timeframe: 07/25/2024 ordered Referral Ordered: Copper, Urine 24 Hr Appointment date/timeframe: 06/28/2024 ordered Referral Ordered: Hep A Ab Appointment date/timeframe: 07/01/2024 ordered Referral Ordered: Actin (Smooth Muscle) Antibody Appointment date/timeframe: 07/01/2024 ordered Referral Ordered: Hep B Surface Ab, Qual Appointment date/timeframe: 07/01/2024 ordered Referral Ordered: Hep B surface Ag Appointment date/timeframe: 07/01/2024 ordered Referral Ordered: Iron/TIBC Appointment date/timeframe: 07/01/2024 ordered Referral Ordered: Ceruloplasmin Appointment date/timeframe: 07/01/2024 ordered Referral Ordered: Hep C Ab Appointment date/timeframe: 07/01/2024 ordered Referral Ordered: [id number] Deficiency Profile Appointment date/timeframe: 07/01/2024 ordered Referral Ordered: Celiac: TTG IgA + Total IgA Appointment date/timeframe: 07/01/2024 ordered Referral Ordered: AntiMitochondrial Ab (AMA), By IFA Appointment date/timeframe: 07/01/2024 ordered Referral Ordered: Ferritin Appointment date/timeframe: 07/01/2024 ordered Referral Ordered: Antinuclear Antibodies, ROLY, IFA Appointment date/timeframe: 07/01/2024 ordered Referral Ordered: referred to Clinical Genetics () First Available Appointment date/timeframe: First Available ordered Referral Ordered: referred to Clinical Molecular Genetics ordered Referral Ordered: referred to Clinical Biochemical Genetics ordered Referral Ordered: CBC W/diff, Whole Blood Appointment date/timeframe: 03/11/2024 ordered Referral Ordered: CT Enterography WITHOUT And WITH Contrast Appointment date/timeframe: 03/11/2024 ordered Referral Ordered: follow-up visit with Good Sam MD 2 Months Appointment date/timeframe: 2 Months ordered Referral Ordered: Xray Upper GI Series Appointment date/timeframe: 10/05/2020 ordered Referral Ordered: referred to Levar Syed MD pain after Kierra Appointment date/timeframe: 10/10/2020 ordered Referral Ordered: CBC w/diff Appointment date/timeframe: -today ordered Referral Ordered: referred to Levar Syed MD Surgery dysphagia post kierra Appointment date/timeframe: 12/27/2019 ordered Referral Ordered: referred to Surgery chronic RUQ pain, abnormal HIDA 1 Month Appointment date/timeframe: 1 Month ordered Referral Ordered: Gastric Emptying Study (4 Hours) Appointment date/timeframe: 08/22/2019 ordered Referral Ordered: HIDA Scan WITH Ejection Fraction Appointment date/timeframe: 07/05/2019 ordered Referral Ordered: Ultrasound Gallbladder Appointment date/timeframe: 07/12/2018 ordered Referral Ordered: Xray Esophagus (Barium Swallow Study) Appointment date/timeframe: 07/12/2018 ordered Referral Ordered: Esoph Motility Study; Appointment date/timeframe: 01/12/2018 ordered Referral Ordered: referred to Jacobo Cedeno Appointment date/timeframe: 01/06/2018 ordered Referral Ordered: Beard PH Monitor Appointment date/timeframe: 12/15/2017 ordered History Of Present Illness Encounter Date Complaint History Of Prese nt Illness GI Symptoms or Concerns This is a 43-year-old male with a past medical history of hepatic steatosis with a fib score of 0.68 ruling out advanced fibrosis, Kierra fundoplication in 2017 with 180 degree wrap seen on last upper endoscopy in 2020 who comes in for follow-up of abdominal pain that has had extensive workup to date.Please see previous note for full details. Briefly diagnostic evaluation that patient has had for abdominal pain includes celiac serology, gastric emptying test that was negative, HIDA scan, multiple CT with IV contrast, blood testing, mild elevation in ALT which included then negative ROLY, AMA, ferritin, hepatitis B, hepatitis C, B12, low ceruloplasmin which led to a 24-hour urine being performed that was negative. Only significant finding was CT scan demonstrating hepatic steatosis. Patient had EGD and colonoscopy performed in 2020. Workup showed 180 degree fundoplication and mild erosive gastropathy otherwise negative. Colonoscopy showed diverticulosis in the sigmoid colon with random biopsies that were negative for any significant findingPatient presents today that in the last 1 to 2 weeks he has had worsening epigastric pain. This radiates around to his back. After eating he feels much worse. He does feel like he has some nausea with this. He has had blood testing as well as CT abdomen with pelvis with IV contrast that was negative in emergency departments.Currently for symptoms he takes Carafate, omeprazole 40 mg twice daily, famotidine 40 mg at least once daily and MiraLAX as needed. He stopped taking nortriptyline dicyclomine as he did not feel like this helped with his symptoms.Otherwise for bowel movements he has 1-3 bowel movements a day ranging from type III-VII on the Saline stool chart. Patient denies any vomiting.Of note patient has had cardiac workup not only in the emergency department but also he had an echo stress test done summer 2023 that was entirely negative. Patient also reports he had 48-hour Holter that was negative.From a social standpoint he drinks 1 drink a month. Patient works in [employer] as well as transportationPatient did have positive carnet's in the epigastric area GI Symptoms or Concerns Mr. Nereida yusuf is a pleasant 43-year-old male presenting for follow-up of several GI concerns.He continues to have left lower quadrant pain that has not changed dramatically since onset. Continues to have 1-2 bowel movements per day does not appreciate any significant changes of left sided abdominal pain after bowel movements. There is some positional component and pain does improve when leaning to his right side. He describes pain as a cramping/tearing sensation and does not feel his nortriptyline has improved his symptoms since beginning this 3 weeks ago.He continues to have variable reflux symptoms and currently taking omeprazole 40 mg twice daily. Will occasionally take Pepcid as well, however he feels that these are not adequately controlling his symptoms. He avoids specific trigger foods, late-night meals and will sleep on additional pillows to elevate his head of bed. Early satiety has not significantly changed and he recently underwent gastric emptying study that was negative while off metoclopramide.Regarding his elevated ALT, a chronic liver disease workup was initiated after his last visit. So far this been remarkable for a low ceruloplasmin and recently submitted a 24-hour urine study which is pending. Remainder the workup thus far has been unremarkable. Of note, patient reports increasing gait instability which his coworkers have commented on over the course of the past month. He also reports progressive neuropathy in both his fingers and his feet. He was recently screened for diabetes by his PCP which was negative per his report.Physical exam notable today for a positive Carnett's sign and positive Romberg test GI Symptoms or Concerns Mr. Nereida yusuf is a pleasant 43 year old male presenting for follow up of multiple GI concerns. Past comprehensive GI workup reviewed as outlined below.He was last evaluated in clinic on 02/22/2024 and presents today for follow-up of similar concerns.He was recently seen by his PCP who had discontinued his metoclopramide roughly 1 week ago. At that time she had also started nortriptyline 10 mg daily. He does report some increase abdominal pain which he believes may be attributed to this. He additionally feels that food is taking a long time to pass through his stomach, although he notes this has been an ongoing problem. 1 year ago he reports left upper quadrant bruising without precipitating factor. This turned into a rash and he states that he was treated with antibiotics for skin rash. This has not recurred.He is currently having 1-2 bowel movements per day which he characterizes often as a Saline 5 although can reach a 2 at times. He states that he is continue to have red flecks and black flecks in his stool. He is unclear if this represents food or blood. Similar reports have been noted in the past and he denies any significant changes in this issue since his prior procedures.He notes that his reflux symptoms have been variable. He is currently taking omeprazole 40 mg daily. He previously had been on twice a day dosing and believes this had helped. More recently, he was taking as needed Pepcid but has not taken this for some time. He also believes that this helped his reflux. He continues to avoid trigger foods and late-night meals.More recently was noted to have a mildly elevated ALT in February of this year. Imaging has shown steatotic liver disease but otherwise no focal abnormalities.Past GI workup:- CT enterography 03/02/24: Hepatic steatosis; long segment of sigmoid colon with mucosal hyperenhancement; pulmonary nodule - Colonoscopy 11/10/2023 done for change in bowel habits. Notable for a complete evaluation to the ileum, excellent preparation, diverticulosis, hypertrophied anal papillae versus condyloma. Otherwise normal. Biopsies of the colon were normal. A normal squamous mucosa with nonspecific reactive change was noted. - EGD 11/10/2023 done for melena, abdominal pain. Notable for prior fundoplication, erosions, and erythema in the mid and distal body, otherwise normal. Pathology shows normal esophageal, gastric, and duodenal mucosa. - CT abdomen and pelvis with contrast, 12/30/2022, notable for hepatic steatosis, multiple hepatic cysts, otherwise largely unremarkable - Colonoscopy 05/05/2021 done for left-sided abdominal pain. Notable for diverticulosis, otherwise normal. Pathology shows normal colonic mucosa. - EGD 05/04/2021 done for left-sided abdominal pain. Notable for erosive gastropathy and fundoplication. Pathology shows normal gastric and duodenal mucosa. - EGD 03/22/2021 done for melena, dysplasia, and notable for a 2 cm hiatal hernia. Erosive duodenopathy. Pathology shows normal esophageal biopsies. - Gastric emptying study 10/12/2020, half time of gastric emptying is longer than 2 hours. This is delayed. - EGD 10/08/2020, notable for a fundoplication wrap partially circumferential appears loose erosive gastropathy, erythema, otherwise normal duodenum. Pathology shows erosive reactive gastropathy, negative H. pylori. - GI series 10/03/2020, notable for status post Kierra fundoplication with normal passage of a 13 mm tablet through the GE junction and no evidence of GERD. No inflammation. - EGD 11/17/2019, notable for normal esophagus dilated to #[id number]-Estonian. Previous fundoplication wrap partially circumferential and normal duodenum. Pathology shows normal squamous mucosa. - Gastric emptying study 08/25/2019, notable for normal gastric emptying study. - HIDA scan 06/27/2019. There is no evidence of acute or chronic cholecystitis. Normal gallbladder EF 77%. - EGD 06/06/2019 notable for erosive gastropathy. Pathology shows normal gastric antral and body mucosa. Negative H. pylori. Ultrasound 06/30/2018, diffuse hepatic steatosis. Benign-appearing cysts in the liver. No cholelithiasis or secondary signs of cholecystitis. Normal caliber biliary tree. - X-ray esophagram 06/30/2018, intact Kierra fundoplication. Temporary holdup of contrast in the distal esophagus proximal to the wrap with free flow of contrast into the stomach and proximal small bowel. - Esophageal manometry 01/11/2018 shows ineffective esophageal motility. - Beard, 12/25/2017, with evidence of reflux. Composite acid exposure time of 10.6% and a composite DeMeester score of 38.9. - Prior celiac serologies in 2018, negative. - EGD 12/08/2017, notable for a normal exam. Gastric biopsies were normal. GI Symptoms or Concerns Prior wo rkup was reviewed.- Colonoscopy 11/10/2023 done for change in bowel habits. Notable for a complete evaluation to the ileum, excellent preparation, diverticulosis, hypertrophied anal papillae versus condyloma. Otherwise normal. Biopsies of the colon were normal. A normal squamous mucosa with nonspecific reactive change was noted.- EGD 11/10/2023 done for melena, abdominal pain. Notable for prior fundoplication, erosions, and erythema in the mid and distal body, otherwise normal. Pathology shows normal esophageal, gastric, and duodenal mucosa.- CT abdomen and pelvis with contrast, 12/30/2022, notable for hepatic steatosis, multiple hepatic cysts, otherwise largely unremarkable- Colonoscopy 05/05/2021 done for left-sided abdominal pain. Notable for diverticulosis, otherwise normal. Pathology shows normal colonic mucosa.- EGD 05/04/2021 done for left-sided abdominal pain. Notable for erosive gastropathy and fundoplication. Pathology shows normal gastric and duodenal mucosa.- EGD 03/22/2021 done for melena, dysplasia, and notable for a 2 cm hiatal hernia. Erosive duodenopathy. Pathology shows normal esophageal biopsies.- Gastric emptying study 10/12/2020, half time of gastric emptying is longer than 2 hours. This is delayed.- EGD 10/08/2020, notable for a fundoplication wrap partially circumferential appears loose erosive gastropathy, erythema, otherwise normal duodenum. Pathology shows erosive reactive gastropathy, negative H. pylori. - GI series 10/03/2020, notable for status post Kierra fundoplication with normal passage of a 13 mm tablet through the GE junction and no evidence of GERD. No inflammation.- EGD 11/17/2019, notable for normal esophagus dilated to #[id number]-Estonian. Previous fundoplication wrap partially circumferential and normal duodenum. Pathology shows normal squamous mucosa.- Gastric emptying study 08/25/2019, notable for normal gastric emptying study. - HIDA scan 06/27/2019. There is no evidence of acute or chronic cholecystitis. Normal gallbladder EF 77%.- EGD 06/06/2019 notable for erosive gastropathy. Pathology shows normal gastric antral and body mucosa. Negative H. pylori. Ultrasound 06/30/2018, diffuse hepatic steatosis. Benign-appearing cysts in the liver. No cholelithiasis or secondary signs of cholecystitis. Normal caliber biliary tree.- X-ray esophagram 06/30/2018, intact Kierra fundoplication. Temporary holdup of contrast in the distal esophagus proximal to the wrap with free flow of contrast into the stomach and proximal small bowel.- Esophageal manometry 01/11/2018 shows ineffective esophageal motility. - Beard, 12/25/2017, with evidence of reflux. Composite acid exposure time of 10.6% and a composite DeMeester score of 38.9.- Prior celiac serologies in 2018, negative.- EGD 12/08/2017, notable for a normal exam. Gastric biopsies were normal.The patient is now seen in follow-up. His last office visit was with Dr. Bernal 12/02/2023. I have reviewed his note and the relevant history. Today, the patient reports multiple gastrointestinal symptoms. He tells me these symptoms have been significant in the last 3-4 weeks.He describes left-sided abdominal pain, which is localized predominantly to the upper quadrant, though also radiates to the back. His pain is rated an 8 to 9/10. He reports this is new and he has not experienced similar symptoms. However, notes indicate this has been noted previously. The pain is described as intermittent, crampy, sharp, feels somewhat like prior diverticulitis. He notes Carafate, metoclopramide, and omeprazole are beneficial for his symptoms. No other aggravating or alleviating factors. He has undergone a cardiac workup, this is still ongoing.He notes dark tarry stools, which is new in the last 1 week, though has occurred previously. Intermittently over the last several years. He describes daily bowel movements 2-3 per day, which is his baseline frequency. He also notes blood with wiping, mucoid stool. He does not have blood clots. He does not use NSAIDs or anticoagulants. Uses omeprazole 40 mg daily for heartburn though notes daily symptoms despite dosing. Some regurgitation. He notes coughing and mucus after eating food. No hoarse voice or chronic cough.He notes significant abdominal bloating.He denies fevers, chills, or weight loss. In general, he does not have significant difficulty with swallowing aside from coughing with intake at times.PAST MEDICAL HISTORYGERD,? Gastroparesis, and gastritis.PAST SURGICAL HISTORYNissen.ALLERGIESNone.SOCIAL HISTORYNo toxic habits. He works in [employer]. Single. No children.FAMILY HISTORYGrandmother with stomach and colon cancer. Mom with cancer of the esophagus with colon cancer.MEDICATIONSOmeprazole, Carafate, and metoclopramide. GI Symptoms or Concerns A very p leasant 42-year-old male who returns for a followup today. I saw him originally on October 30, 2023 when he had presented following a recent hospitalization with persistent left abdominal pain and significant bloating. He was recommended an upper endoscopy to evaluate the prior history of Kierra fundoplication and to establish if there are any areas of narrowing as well as a colonoscopy given that he had had some concern for GI bleeding. These procedures were performed on 11/10/2023, and the upper endoscopy revealed evidence of mild gastritis in the mid and distal body over the great curvature which corresponds to the patient's location of the pain, but biopsies were normal from the esophagus. There was evidence of previous fundoplication noted and the wrap appeared normal. He also had a colonoscopy with random biopsies, which was negative. He did have an anal nodule, biopsies from which were negative for malignancy. The patient reports today that his bloating is signifi GI Symptoms or Concerns 42 yo M who presents in follow up of a recent hospitalization with persistent left-sided abdominal pain. He has a past medical history significant for gastroesophageal reflux disease, status post descent negative Beard study in 2022.He recently presented with abdominal pain and possible GI bleeding to 10/21/2023 where he was seen by the inpatient gastroenterology consult team. During the hospitalization, he had reported having some bright red blood with his stools as well as recent history of dark tarry stools. Imaging in the form of a CT scan revealed evidence of mild-appearing colitis, possibly infectious but was otherwise normal. He has previously had an upper endoscopy and colonoscopy with us in 2020 and more recently at [facility], but 132/23, underwent an upper endoscopy at [facility], that revealed evidence of LA grade A esophagitis, chronic mild gastritis, and a Beard was placed at that time. Results of the bowel revealed evidence of and overall normal study with acid exposure time of about 3% and a DeMeester score of 11.1. He did have some evidence of upright reflux, but without symptoms association. He reports that since his hospitalization, he has continued to have left upper quadrant pain. He has also started experiencing increased bloating which he feels as led to a lot of subjective weight gain in the last few weeks. He is experiencing extreme bloating. This has also contributed to fatigue. He denies constipation or diarrhea. He reports that he met with his primary care And was not thought to have any cardiac issues responsible for his fatigue. GI Symptoms or Concerns Trevon is seen today in followup.By history, the patient is a 40-year-old male with history of gastroesophageal reflux disease status post Kierra fundoplication. He has been bothered most recently by persistent bloating as well as with symptoms of acid regurgitation and burning. He had undergone endoscopy showing evidence of a loosened esophageal wrap and he has evidence of disordered motility with gastroparesis.When seen last approximately 6 weeks ago, he had been placed on metoclopramide and amitriptyline because of ongoing symptoms.He had called the office yesterday because of worsening symptoms and is seen today. He persists with what he describes as pain as well as mucus and regurgitation coming up into his throat. It occurs on a daily basis and has been problematic. Despite this, his weight has been relatively stable.There have been no other changes in allergies, meds, medical history, social history, family history.At this stage, the symptoms are tin GI Symptoms or Concerns Trevon is seen today in followup.Before beginning our televisit, he verified he was in a safe place. Gave consent for this to be done over the phone.By history, the patient is a 40-year-old man, status post Kierra procedures. Main complaint is that of bloating and abdominal discomfort.While he has been doing relatively well earlier in the year, he has now experienced an increased symptoms. He had been seen [address] Villasenor because of the continued fullness. Review of studies at that time, it showed evidence of gastroparesis on his most recent gastric emptying study. I note the prior upper endoscopy showed evidence of what appeared to an undone Kierra.The patient has been started on metoclopramide at that time and is seen today in followup.He states in the last 2 weeks, he has had exacerbation of symptoms. He has had some intermittent vomiting and diarrhea. While his weight is the same, he feels that he is weaker and not doing as well. He has not GI Symptoms or Concerns The aye ent is a 39-year-old male who had an in-person visit today for followup of gastroparesis. The patient is typically seen by Dr. Sam, but he could not get in to see him quickly. The patient was last seen by Dr. Sam on September 20, 2020. The patient has been experiencing left upper quadrant pain and bloating and nausea. He has a history of a Kierra fundoplication. He had an EGD performed on October 08, that was unrevealing. He had an upper GI series performed in September as well that was also unrevealing. He did have a gastric emptying study performed on October 09 that did show delay of gastric emptying. The patient reports that he continues to have intermittent left upper quadrant pain and nausea and decreased appetite and bloating and early satiety. The patient has continued to take omeprazole. He reports that he does not take Levsin very often. The patient denies taking any narcotics around the time of his gastric emptying study. The patient denies other GI sympto GI Symptoms or Concerns Trevon is called today for a televisit. Before beginning, he verified he was in a safe place, alone and able to talk.By history, he is a 39-year-old man, status post laparoscopic Kierra for reflux disease. Since that time, however, he has been bothered by persistent pain. He describes discomfort occurring in the left upper quadrant. It can be moderately severe, associated with abdominal distention.With this, he most recently was seen in the emergency room in [place]. He relates that abdominal films were negative. He continued to have the discomfort. He is not aware of whether he has lost weight or not. He will with this have some regurgitation of food particles as well.He had undergone an upper endoscopy in October 2019. The examination shows what appeared to be a slightly loose fundoplication. No food was noted in the stomach.His symptoms, however, are continuing. With this, he still has occasional trouble swallowing as well.In talking to him, [facility] Trevon is called today for his televisit. Before beginning, we confirmed he was in a private, safe place and able to talk. He gave consent to this being held over the phone.By history, Trevon is a 39-year-old man, status post fundoplication approximately 2 years ago, who had been having increasing symptoms of abdominal discomfort.He had been investigated endoscopically in October of this year. At that point, he was found to have evidence of what appeared to be a loose fundoplication. While we had asked him to arrange a surgical followup, unfortunately this had not been done.Associated with all of this, Trevno has had rectal bleeding. This has actually now been progressive. It has been occurring on a regular basis with looser bowel movements. I note that while the office had called, he had not yet scheduled the appointment.Associated with this, he does state that he has a sense of bloating, fullness that occurs.There has been no other change in his allergies, me GI Symptoms or Concerns I spoke with Trevon today on the phone. We spoke for 10 minutes in our televisit.Prior to beginning the visit, the patient consented to the visit being held on the phone and confirmed there were no additional people present and that he was alone. The timing was 10 minutes. This was spent in reviewing records, interpreting results, discussing and coordinating care, and discussing plans.Trevon is a 38-year-old man status post hiatal hernia repair with a Kierra fundoplication.He continues to have the same symptoms of dysphagia. An upper endoscopy had revealed a slightly loose wrap and while a manometry had been ordered, the patient was unable to have this completed because of the COVID-19 viral shutdown.When speaking to him today, his symptoms are much the same.He is now sleeping in an elevated position. States this is helping somewhat. He feels that his weight is stable, although he does feel a little bit bloated. He has been taking vitamins and is able to eat GI Symptoms or Concerns Trevon is seen today in followup.This patient is a 38-year-old male status post Kierra fundoplication 2 years ago because of severe reflux. While it helped with his reflux, he has been having increasing problems. Now, he just complains of both bloating as well as difficulty swallowing. The bloating typically occurs shortly after eating. It can be present even with minimal intake. Associated with this, he has a sense of early satiety and fullness.In addition, he states that when eating, food will become lodged and what feels like the distal esophagus, he will have the strings of mucus that come up until the food is ultimately able to pass.These symptoms are not associated with heartburn. It is better than in the past, although he still gets occasional dyspepsia.Despite this, his weight has been stable.With his symptoms, he had undergone upper endoscopy 2 months ago. This revealed what was felt to be an intact fundoplication. In addition, he has had a gastric GI Symptoms or Concerns This vickie perkins is a 38-year-old male who presents to clinic for followup of abdominal pain and dysphagia.He continues to experience frequent postprandial upper abdominal pain. He describes sharp pain in the epigastrium that radiates across his upper abdomen. This has been occurring for about 3 months. There was associated bloating and nausea. His symptoms were worsened by eating, particularly fatty or greasy foods. This pain responds minimally to omeprazole 40 mg daily. Recently, he tried dicyclomine with little change in his symptoms.The patient also reports frequent sensation that food is stuck at the bottom of his esophagus. He is often regurgitating undigested food and mucus. There is associated nausea, bloating, and early satiety. There is no associated vomiting, bowel change, rectal bleeding, or unintentional weight loss.The patient was admitted to [facility] in May 2019 with abdominal pain. He is found to have a mild lipase elevation to 104, with GI Symptoms or Concerns This vickie perkins is a 38-year-old male who presents in clinic for followup of abdominal pain and dysphagia.He continues to experience frequent postprandial upper abdominal pain. He describes sharp pain in the epigastrium that radiates across his upper abdomen. This has been occurring for about 2 months. There is associated bloating and nausea. Symptoms are worsened by eating, particularly fatty or greasy foods. This pain persists even with taking omeprazole 40 mg daily and Carafate daily. Since last visit, he tried dicyclomine with no improvement of pain.The patient also continues to feel like food is stuck at the bottom of his esophagus. He sometimes feels like he is regurgitating undigested food. He also reports nausea, bloating, and early satiety. There is no associated vomiting, bowel change, rectal bleeding, or unintentional weight loss.The patient was admitted to [facility] in May 2019 with abdominal pain. He was found to have a mild lipase elevatio GI Symptoms or Concerns This vickie perkins is a 38-year-old male who presents in clinic following a recent hospital admission for abdominal pain.He reports new-onset upper abdominal pain started about 1 month ago. He describes sharp pain in the epigastrium that radiates across his upper abdomen. There is associated bloating and nausea. These symptoms worsen after he eats, and are triggered by most foods. He also feels like food is stuck at the bottom of his esophagus and that he sometimes coughs up mucus after he eats. There is no associated vomiting, bowel change, rectal bleeding, or unintentional weight loss.The patient was admitted to [facility] earlier this month with abdominal pain. He was seen in consultation by JIMMY. He was found to have a mild lipase elevation to 104, with otherwise normal CBC, electrolytes, and LFTs. CT scan demonstrated normal appearance of the pancreas, but did note some proximal small-bowel thickening. EGD was performed on June 06 and revealed erythema in t GI Symptoms or Concerns Trevon is a 37-year-old male who presents in followup today regarding heartburn, acid regurgitation, abdominal pain, symptoms in the post Kierra setting.He was last seen in clinic in June 2018 by KATYA Kraus, regarding similar symptoms. He had a Kierra fundoplication in January 2018. He has had some minor difficulties with swallowing, but this seems to be minor and improving. He weaned himself off of omeprazole, but then had restarted in the fall of 2017 when he developed abdominal pain and acid-like regurgitation with nausea. He is now reporting that he is actually vomiting up food. He states that he just does not feel right. He does have abdominal pain that is described as both an acid feeling in the upper abdomen as well as bloating. His bowel movements are irregular and fluctuate between mildly constipated to mildly loose. His weight has actually gone up compared to June 2018. He denies any fevers, but does have some night sweats. He has been checking his tem Additional Narrative GI Symptoms or Concerns Mr. Nereida yusuf is a 37-year-old male with history of GERD, peptic ulcer disease status post Kierra fundoplication in January 2018, who presents to clinic today with a 2-week history of worsening acid reflux, nausea, vomiting, fatigue, and diarrhea.The patient reports that following his Kierra fundoplication in January 2018, he felt quite well. He had some minor difficulties with swallowing in the beginning, but those appeared to have resolved. He was able to wean himself off of the omeprazole and was doing quite well until about 2 weeks ago. He then started to develop abdominal pain, a feeling that he could not swallow, and regurgitation of acid-like liquid associated with nausea. When he was able to eat, he would then have a loose watery stool associated with borborygmi and bloating. He reports that these symptoms felt the same as the symptoms prior to his surgery. He reports being evaluated in the emergency department a few different times and was given IV fluids and sent GI Symptoms or Concerns Trevon kasper is seen as a new patient here in the office today for a history of peptic ulcer disease and ongoing gastroesophageal reflux symptoms. Gustabo is a very nice 36-year-old male, recently orphaned with the of both of his parents several months ago, who was diagnosed with peptic ulcer disease in March of 2017, felt to be due to nonsteroidal anti-inflammatory agent use. At that time, the patient had some upper gastrointestinal bleeding. Since then he has been off the nonsteroidal anti-inflammatory agents and has been on omeprazole and has not had any recurrent bleeding. What he does describe, however, is fairly frequent heartburn and regurgitation. He says sometimes this can occur on a daily basis despite the omeprazole with the burning sensation in his substernal chest and frequent regurgitation. There has been no dysphagia or odynophagia. The patient does have some mild nausea, but no vomiting. His appetite has been preserved, but not robust and his weigh Functional Status Date Functional Assessmen t No Information Instructions Date Instruction Additional Infor lisa -- As we discussed i t is reassuring that your CT scan at the time of significant abdominal pain was negative-- Blood work was also negative at the emergency department-- You have had a fairly comprehensive workup today. We will finish the workup with a few more testing-- We will proceed with a barium esophagram to ensure that the Kierra fundoplication is in appropriate position-- We will also proceed with an upper endoscopy to make sure we are not missing anything in the upper GI tract-- Please schedule your trigger point injection as recommended by Dr. Bateman, which I think will benefit your symptoms-- Safe to place an vket-sgi-rozdpht lidocaine patch in the upper portion of the abdomen-- Please have small frequent meals and try to avoid large meals-- Safe to continue to use omeprazole and Pepcid-- Have prescribed some Pepcid that you can use as needed-- We will follow-up after the barium swallowing test and upper endoscopy-- We can consider low-dose mirtazapine for GI symptoms if the above is negative as we discussed today in clinic Related to Dyspepsia Lifestyle education regarding di et Related to Dietary counseling and surveillance gerd Related to Lower abdominal pain Therefore, we agreed on the following plan:1. Continue omeprazole 40 mg daily for at least 3 months and notice response.2. At that point, we will try to reduce the omeprazole to 20 mg daily and see if that maintains him in an asymptomatic state.3. If he is not responding to high-dose omeprazole, may need to add neuromodulator such as nortriptyline at a lower dose.4. The patient will watch for components within the FODMAP diet that seem to trigger symptoms of bloating.5. He will continue to watch his dysphagia, as he may need evaluation with a thoracic surgeon if he continues to have dysphagia in the lower esophagus level to re-evaluate his wrap from prior fundoplication. Related to LUQ pain Colon Cancer Prevention Related to Change in bowel habit Diverticulosis/Diverticulitis Re lated to Diverticulosis of colon without diverticulitis High Fiber Diet Related to Diver ticulosis of colon without diverticulitis NSAIDS List Related to Gastr o-esophageal reflux disease without esophagitis -Gastroparesis diet- We discussed possibly starting reglan for treatment of gastroparesis. We discussed risk of tardive dyskinesia. We discussed starting at 5 mg vs 10 mg four times daily. Patient decided to start reglan liquid solution at 5 mg four times daily for treatment of gastroparesis. -Discontinue zofran and levsin-Continue telcoesigf-Oyizga-dw with Dr. Sam in 2 months Related to Gastroparesis -Start carafate liqu id. Take this before meals and bedtime as needed. Please notify me if this is expensive. We could switch to the tablet form and just crush it/mix with water to make your own suspension-Increase omeprazole dose to 40 mg once a day. Take 30-60 minutes before a meal-Work on healthy eating/water intake and exercise. If getting constipated with the carafate, add in Miralax-Mediation before bed may be helpful to reduce stress and improve sleep-Follow up in clinic in 1 month if ongoing symptoms so further work up can be considered Related to Gastro-esophageal reflux disease without esophagitis Lifestyle education regarding di et Related to Dietary counseling and surveillance Assessments Type Assessment Date assessment Acute diarrhea Patient Care Teams Name Effective Dates (start - stop) Status Members No Information
--- OUTSIDE RECORDS SUMMARY | 2024-10-27 04:45 | XMS_ITS | Continuity of Care Document ---
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 Name Role Phone Darshan Engel MD Unavailable [...] tablets per colonoscopy prep instructions received from [facility] - Active Procedure florian e: 11/10/23 magnesium citrate oral solution Drink a 10 ounce bottle (NO RED) per colonoscopy prep instructions - Active Procedure date: 11/10/23, please dispense 1-10oz bottle simethicone 80 mg chewable tablet take by oral route as directed per COL prep instructions received from [facility] - Active Procedure florian e: 11/10/23 Miralax 17 gram/dose oral powder take by oral route as directed per COL prep instructions received from [facility] - Active Procedure florian e: 11/10/23. please [...] on Encounter [facility] [address] [address], [place], [id number], [place] tel:[phone] [facility] Acute diarrhea 5 Toro Sexton. [address] [facility], [address], [id number], [place]. tel:[phone] [facility], [address] [address], [place], [id number], [place] tel:[phone] [facility] Gastro-esopha geal reflux disease without esophagitisDy sphagia, unspecifiedGa stro-esophage al reflux disease without esophagitis 4 Linn Monique. [address] [place] [address], [id number], [place]. tel:[phone] Referring Provider: Referral Self, USE FOR SELF REFERRALS. Offic/outpt E&m Estab Mod-hi 4 [facility], [address] [address], [place], [id number], [place] tel:[phone] [facility] GI Symptoms or Concerns (chief complaint) Dietary counseling and surveillanceD yspepsiaAbdom inal wall painGastroeso phageal reflux disease, unspecified whether esophagitis present 4 Toro Sexton. [address] [place] [address], [address], [id number], [place]. tel:[phone] Referring Provider: Referral Self, USE FOR SELF REFERRALS. [facility], [address] [address], [place], [address], [place] tel:[phone] [facility] No Information 4 Fransico Larsen. [address] [facility], [address], [address], [place]. tel:[phone] Referring Provider: Referral Self, USE FOR SELF REFERRALS. Offic/outpt E&m Estab Mod-hi 2 [facility], [address] [address], [place], [address], [place] tel:[phone] [facility] GI Symptoms or Concerns (chief complaint) Lower abdominal painLow ceruloplasmin levelChronic GERDGait instability May-3 0- 4 Devinpengmarta Tim. [address] [facility], [address], [id number], [place]. tel:[phone] Referring Provider: Referral Self, USE FOR SELF REFERRALS. [facility], [address] [address], [place], [address], [place] tel:[phone] [facility] Low ceruloplasmin level May- 4 Devinmarta Tim. [address] [facility], [facility] [address], [place], [address], [place]. tel:[phone] [facility], [address] [address], [place], [address], [place] tel:[phone] [facility] Abnormal levels of other serum enzymes May- 4 Devinmarta DO Dumont. [address] [facility], [address], [address], [place]. tel:[phone] Referring Provider: Referral Self, USE FOR SELF REFERRALS. [facility] [place], [address] [address], [place], [address], [place] tel:[phone] [facility] Abnormal liver enzymes May- 4 Devinpengmarta Tim. [address] [facility], [address], [id number], [place]. tel:[phone] Offic/outpt E&m Estab Mod-hi 2 [facility], [address] [address], [place], [address], [place] tel:[phone] [facility] GI Symptoms or Concerns (chief complaint) Chronic GERDGastropar esisFamily history of colon cancer May- 4 Fransico Larsen. [address] [facility], [address], [address], [place]. tel:[phone] Referring Provider: Referral Self, USE FOR SELF REFERRALS. [facility] [place], [address] [address], [place], [address], [place] tel:[phone] [facility] No Information 4 Mika Lehman. [address] [facility], [address], [id number], [place]. tel:[phone] Established Level 5 [facility], [address] [address], [place], [id number], [place] tel:[phone] [facility] GI Symptoms or Concerns (chief complaint) Left upper quadrant abdominal painBlack stoolBright red blood per rectumNauseaH eartburn Feb-0 4 Sherrill Zamudio. [address] [facility], [address], [address], [place]. tel:[phone] Referring Provider: Referral Self, USE FOR SELF REFERRALS. [facility], [address] [address], [place], [address], [place] tel:[phone] [facility] No Information 4 Mika Lehman. [address] [facility], [facility] [address], [place], [address], [place]. tel:[phone] Offic/outpt E&m Estab Low-mod [facility], [address] [address], [place], [address], [place] tel:[phone] [facility] GI Symptoms or Concerns (chief complaint) LUQ painBloating 4 Gabe Richter. [address] [facility], [facility] [address], [place], [address], [place]. tel:[phone] Referring Provider: Referral Self, USE FOR SELF REFERRALS. [facility], [address] [address], [place], [address], [place] tel:[phone] [facility] Change in bowel habitGastro-e sophageal reflux disease without esophagitisMe lenaChange in bowel habitDivertic ulosis of colon without diverticuliti sGastro-esoph ageal reflux disease without esophagitisMe lenaChange in bowel habitDvrtclos of lg int w/o perforation or abscess w/o bleeding Mar-1 9-202 4 Jessica Nguyen. [address] [facility], [facility] [address], [place], [address], [place]. tel:[phone] Referring Provider: Referral Self, USE FOR SELF REFERRALS. [facility], [address] [address], [place], [place], [address], [place] tel:[phone] [facility] No Information 4 Jessica Nguyen. [address] [facility], [facility] [address], [place], [address], [place]. tel:[phone] Offic/outpt E&m Estab Mod-hi 2 [facility] [place], [address] [address], [place], [place], [address], [place] tel:[phone] [facility] GI Symptoms or Concerns (chief complaint) Chronic GERDHistory of Kierra fundoplicatio nBloatingAlte red bowel habitsMelena 4 Gabe Richter. [address] [facility], [facility] [address], [place], [address], [place]. tel:[phone] Referring Provider: Referral Self, USE FOR SELF REFERRALS. Subsqt Hosp-da E&m Stable 15 M [facility] [place], [address] [address], [place], [place], [address], [place] tel:[phone] [facility] No Information 4 Daiana Perez. [address] [facility], [facility] [address], [place], [address], [place]. tel:[phone] Referring Provider: Ana Allred, [address] [facility] [address], [place], [address] . tel:[phone] Init Inpt Cons New/est Mod-hi [facility], [address] [address], [place], [place], [address], [place] tel:[phone] [facility] No Information 4 Bertin Finch. [address] [facility], [facility] [address], [place], [place], [address], [place]. tel:[phone] Referring Provider: Dayanna Nolasco [employer] M, [address], [place], [address]. tel:[phone] [facility], [address] [address], [place], [address], [place] tel:[phone] [facility] No Information Sep-0 3 Mika Lehman. [address] [facility] [address], [place], [place], [address], [place]. tel:[phone] [facility], [address] [address], [place], [address], [place] tel:[phone] [facility] No Information Apr-2 1 Robel Hansen. [address] [facility], [facility] [address], [place], [address], [place]. tel:[phone] Init Inpt Cons New/est Mod-hi [facility], [address] [address], [place], [address], [place] tel:[phone] [facility] No Information Apr- 1 Erik Elizalde. [address] [facility] [address], [place], [address], [place]. tel:[phone] Referring Provider: Bessy Menendez [facility], [address] [place] [address], [address]. tel:[phone] [facility], [address] [address], [place], [address], [place] tel:[phone] [facility] No Information 3 1 No Information Telephone E&M I 5-10 Min [place] [facility], [address] [address], [place], [address], [place] tel:[phone] [facility] GI Symptoms or Concerns (chief complaint) Bloating symptomGastro -esophageal reflux disease without esophagitisGa stroparesis Feb-0 1 Flaco Funk. [address] [facility] [address], [place], [address], [place]. tel:[phone] Referring Provider: Referral Self, USE FOR SELF REFERRALS. Telephone E&M II 11-20 Min [place] [facility], [address] [address], [place], [address], [place] tel:[phone] [facility] GI Symptoms or Concerns (chief complaint) Gastro-esopha geal reflux disease without esophagitisGa stroparesisOt her specified postprocedura l states 1 Flaco Funk. [address] [facility], [address], [address], [place]. tel:[phone] Referring Provider: Donny Botello MD, [address] [place] [address], [address]. tel:[phone] [facility], [address] [address], [place], [address], [place] tel:[phone] [facility] No Information 1 Robel Hansen. [address] [facility], [address], [address], [place]. tel:[phone] Offic/outpt E&m Estab Mod-hi 2 [facility], [address] [address], [place], [address], [place] tel:[phone] [facility] GI Symptoms or Concerns (chief complaint) Gastroparesis LUQ painNauseaEar ly satiety 1 Hamilton Lewis. [address] [facility], [address], [address], [place]. tel:[phone] Referring Provider: Referral Self, USE FOR SELF REFERRALS. [facility], [address] [address], [place], [address], [place] tel:[phone] [facility] No Information 1 Flaco Funk. [address] [place] [address], [address], [address], [place]. tel:[phone] [facility], [address] [address], [place], [address], [place] tel:[phone] [facility] Upper abdominal pain, unspecifiedOt her specified postprocedura l statesDisease of stomach and duodenum, unspecifiedOt her specified postprocedura l statesUpper abdominal pain, unspecified 1 No Information Referring Provider: Referral Self, USE FOR SELF REFERRALS. [facility], [address] [address], [place], [address], [place] tel:[phone] [facility] History of Kierra fundoplicatio n 1 Flaco Funk. [address] [facility], [facility] [address], [place], [address], [place]. tel:[phone] Telephone E&M I 5-10 Min [facility], [address] [address], [place], [address], [place] tel:[phone] [facility] GI Symptoms or Concerns (chief complaint) LUQ painBloating symptomHistor y of Kierra fundoplicatio n 1 Flaco Funk. [address] [place] [address], [address], [id number], [place]. tel:[phone] Referring Provider: Referral Self, USE FOR SELF REFERRALS. [facility], [address] [address], [place], [address], [place] tel:[phone] [facility] Bloating 1 Flaco Funk. [address] [place] [address], [address], [address], [place]. tel:[phone] Telephone E&M II 11-20 Min [facility] [facility], [address] [address], [place], [address], [place] tel:[phone] [facility] Comment (chief complaint) Dysphagia, unspecifiedUp per abdominal painRectal bleed 0 Flaco Funk. [address] [place] [address], [address], [address], [place]. tel:[phone] Referring Provider: Referral Self, USE FOR SELF REFERRALS. Virtual Visit E&m Estab Minor 10-14 Min [facility], [address] [address], [place], [address], [place] tel:[phone] [facility] GI Symptoms or Concerns (chief complaint) Dysphagia, unspecifiedRe ctal bleed Nov- 0 Flaco Funk. [address] [facility], [address], [address], [place]. tel:[phone] Referring Provider: Referral Self, USE FOR SELF REFERRALS. [facility], [address] [address], [place], [address], [place] tel:[phone] [facility] Dysphagia, unspecifiedRe ctal bleedDysphagi a, unspecified 0 Flaco Funk. [address] [facility], [address], [address], [place]. tel:[phone] Referring Provider: Referral Self, USE FOR SELF REFERRALS. [facility], [address] [address], [place], [address], [place] tel:[phone] [facility] Diarrhea, unspecified typeRectal bleed 0 Flaco Funk. [address] [facility], [facility] [address], [place], [address], [place]. tel:[phone] Referring Provider: Referral Self, USE FOR SELF REFERRALS. Offic/outpt E&m Estab Mod-hi 2 [facility], [address] [address], [place], [address], [place] tel:[phone] [facility] GI Symptoms or Concerns (chief complaint) Esophageal dysphagiaBloa ting Sep- 0 Flaco Funk. [address] [place] [address], [facility] [address], [place], [address], [place]. tel:[phone] Referring Provider: Referral Self, USE FOR SELF REFERRALS. Offic/outpt E&m Estab Mod-hi 2 [facility] [place], [address] [address], [place], [address], [place] tel:[phone] [facility] GI Symptoms or Concerns (chief complaint) RUQ painDysphagia , unspecified type Aug- 2-202 0 Laatsch PAC Erika. [address] [place] [address], [address], [address], [place]. tel:[phone] Referring Provider: Referral Self, USE FOR SELF REFERRALS. [facility] [place], [address] [address], [place], [address], [place] tel:[phone] [facility] Early satiety Jul- 3-201 9 Laatsch PAC Erika. [address] [place] [address], [address], [address], [place]. tel:[phone] Offic/outpt E&m Estab Low-mod [facility], [address] [address], [place], [address], [place] tel:[phone] [facility] GI Symptoms or Concerns (chief complaint) Upper abdominal painEarly satiety 3-201 9 Laatsch PAC Erika. [address] [place] [address], [address], [address], [place]. tel:[phone] Referring Provider: Referral Self, USE FOR SELF REFERRALS. [facility] [place], [address] [address], [place], [address], [place] tel:[phone] [facility] No Information 8-201 9 Laatsch PAC Erika. [address] [place] [address], [id number], [place]. tel:[phone] Offic/outpt E&m Estab Low-mod [facility], [address] [address], [place], [address], [place] tel:[phone] [facility] GI Symptoms or Concerns (chief complaint) Upper abdominal pain May-2 9-201 9 Laatsch PAC Erika. [address] [place] [address], [address], [address], [place]. tel:[phone] Referring Provider: Referral Self, USE FOR SELF REFERRALS. Subsqt Hosp-da E&m Minr Compl [facility] [place], [address] [address], [place], [place], [address], [place] tel:[phone] [facility] No Information No Information Subsqt Hosp-da E&m Minr Compl [facility], [address] [address], [place], [place], [address], tel:[phone] [facility] No Information Chet Seymour. [address] [facility], [facility] [address], [place], [place], [address], [place]. tel:[phone] Referring Provider: Dawn Rogers, [address] [facility] [address], [place], [address] . tel:[phone] [facility], [address] [address], [place], [place], [address], [place] tel:[phone] [facility] No Information Erik Elizalde. [address] [facility], [facility] [address], [place], [place], [address], [place]. tel:[phone] Referring Provider: Donny Botello MD, [address] [place] [address], [address]. tel:[phone] Init Inpt Cons New/est Mod-hi [facility], [address] [address], [place], [place], [address], [place] tel:[phone] [facility] No Information Gerson Sutherland. [address] [facility], [facility] [address], [place], [place], [address], [place]. tel:[phone] Referring Provider: Donny Botello MD, [address] [place] [address], [address]. tel:[phone] Offic/outpt E&m Estab Low-mod [facility], [address] [address], [place], [place], [address], [place] tel:[phone] [facility] GI Symptoms or Concerns (chief complaint) Gastro-esopha geal reflux disease without esophagitisBl oatingAltered bowel habits 9 No Information Referring Provider: Donny Botello MD, [address] [place], [address]. tel:[phone] Offic/outpt E&m Estab Mod-hi 2 [facility], [address] [address], [place], [address], [place] tel:[phone] [facility] GI Symptoms or Concerns (chief complaint) Additional Narrative (chief complaint) Gastro-esopha geal reflux disease without esophagitisDi etary counseling and surveillance 8 Ilir Warren. [address], [id number], [place]. tel:[phone] Referring Provider: Referral Self, USE FOR SELF REFERRALS. [facility] [place], [address] [address], [place], [address], [place] tel:[phone] [facility] Gastro-esopha geal reflux disease without esophagitis 8 Andres Aguilar. [address] [facility] [address], [place], [address], [place]. tel:[phone] Referring Provider: Levar Steward, [address], [facility] [place], [address]. tel:[phone] [facility], [address] [address], [place], [address], [place] tel:[phone] [facility] Gastroesophag eal reflux disease, esophagitis presence not specified 8 Andres Aguilar. [address] [facility], [facility] [address], [place], [place], [address], [place]. tel:[phone] Subsqt Hosp-da E&m Minr Compl [facility], [address] [address], [place], [address], [place] tel:[phone] [facility] No Information 8 Bertin Finch. [address] [facility], [facility] [address], [place], [place], [address], . tel:[phone] Referring Provider: Levar Steward, [address], [place], [address]. tel:[phone] In Hosp-da E&m Mod Severity [facility], [address] [address], [place], [address], [place] tel:[phone] [facility] No Information 8 No Information Referring Provider: Levar Steward, [address], [place], [address]. tel:[phone] [facility], [address] [address], [place], [address], [place] tel:[phone] [facility] Gastroesophag eal reflux disease without esophagitis 8 Andres Aguilar. [address] [facility], [facility] [address], [place], [place], [address], [place]. tel:[phone] [facility], [address] [address], [place], [address], [place] tel:[phone] [facility] Gastro-esopha geal reflux disease without esophagitis Nov- 8 Andres Aguilar. [address] [facility], [facility] [address], [place], [place], [address], [place]. tel:[phone] Referring Provider: Jeff Allred, [address] [facility] [address], [place], [address] . tel:[phone] [facility], [address] [address], [place], [address], [place] tel:[phone] [facility] Gastro-esopha geal reflux disease without esophagitis Nov- 8 Frankie Stewart. [address] [facility], [facility] [address], [place], [place], [address], [place]. tel:[phone] Referring Provider: Referral Self, USE FOR SELF REFERRALS. [facility], [address] [address], [place], [address], [place] tel:[phone] [facility] Gastroesophag eal reflux disease without esophagitisGa stro-esophage al reflux disease without esophagitis 8 Andres Aguilar. [address] [place] [address], [address], [place]. tel:[phone] Referring Provider: Referral Self, USE FOR SELF REFERRALS. Offic/outpt E&m New Mod-hi [facility], [address] [address], [place], [place], [address], tel:[phone] [facility] GI Symptoms or Concerns (chief complaint) Peptic ulcerGastroes ophageal reflux disease, esophagitis presence not specified 8 Andres Aguilar. [address] [facility] [address], [place], [address], [place]. tel:[phone] Referring Provider: Referral Self, USE FOR SELF [...] Registry Payers Payer name Insurance type Covered republican ID Linsey campos(sHaroon Agudelo [place] [id number] Social History Type Description Quantity Date Captured [...] Ab Appointment date/timeframe: 07/01/2024 ordered Referral Ordered: [id number] Deficiency Profile Appointment date/timeframe: 07/01/2024 ordered Referral [...] day ranging from type III-VII on the Loíza stool chart. Patient denies any vomiting.Of note patient has had cardiac workup not only in the emergency department but also he had an echo stress test done summer 2023 that was entirely negative. Patient also reports he had 48-hour Holter that was negative.From a social standpoint he drinks 1 drink a month. Patient works in [employer] as well as transportationPatient did have positive [...] day which he characterizes often as a Loíza 5 although can reach a 2 at [...] 11/17/2019, notable for normal esophagus dilated to #54-Sinhala. Previous fundoplication wrap partially circumferential and normal [...] 11/17/2019, notable for normal esophagus dilated to #54-Sinhala. Previous fundoplication wrap partially circumferential and normal [...] HISTORYNissen.ALLERGIESNone.SOCIAL HISTORYNo toxic habits. He works in [employer]. Single. No children.FAMILY HISTORYGrandmother with stomach and [...] us in 2020 and more recently at [facility], but 132/23, underwent an upper endoscopy at [facility], that revealed evidence of LA grade A [...] was seen in the emergency room in [place]. He relates that abdominal films were negative. [...] as well.In talking to him, his only [facility] Comment Trevon is called today for his [...] not been done.Associated with all of this, Trevon has had rectal bleeding. This has actually [...] unintentional weight loss.The patient was admitted to [facility] in May 2019 with abdominal pain. He [...] unintentional weight loss.The patient was admitted to [facility] in May 2019 with abdominal pain. He [...] unintentional weight loss.The patient was admitted to [facility] earlier this month with abdominal pain. He [...] benefit your symptoms-- Safe to place an [id number] lidocaine patch in the upper portion of [...] treatment of gastroparesis. -Discontinue zofran and levsin-Continue [id number] with Dr. Sam in 2 months Related [...]
--- OUTSIDE RECORDS SUMMARY | 2025-02-01 20:57 | XMS_ITS | Clinical Summary ---
Author Organization [facility] Address [address] [place] [address] Care Team Providers Care Astronomy Instructor Name Role Phone Elsewhere, Pcp Primary Care Provider Unavailabl e Source Comments Patient records contain information from all sites at [facility]. For routine questions regarding patient records, call [phone] during business hours, M-F 8:00 AM - 5:00 PM Central Time. Record requests for emergency care only can be directed to [phone] at any time.[facility] Allergies No known active allergies Medications [...] of the abdomen and pelvis done at [facility]. A chest CT was recommended for further evaluation. Abdominal Pain 03/21/2021 Fundoplication Kierra Status Post 06/21/2019 Overview (06/21/2019): January 2018 [place], [place] Psychosocial Circumstance 08/22/2018 Adjustment Disorder 08/22/2018 [...] 2-4 stools daily, often shortly following meals, [place] 1-7 range without any specific pattern or [...] any clubs o r organizations such as restoration groups, unions, fraternal or athletic groups, or [...] Answer Date Recorded PHQ-2 Score 0 06/21/2019 [facility] [place] [facility] Occupat ional Health - Occupational Stress [...] money to buy more. Never true 12/26/19 22 Within the past 12 months, t he [...] to sleep or slept in a senior living (including now)? Yes 12/25/2021 Nutrition Answer Date Recorded Nutrition: EVOO Fat Source No 12/25 On average, how many serving s of fruits and vegetables do you eat per day (serving size is equal to 1 cup or approximately the size of a tennis ball)? 0-1 12/25/2021 Dental Answer Date Recorded Dental: Regular Dentist Unknown 05/05/20 25 Employment Answer Date Recorded Employment status Employed and actively working without restrictions 12/25/2021 Education Answer Date Recorded What is the highest level of school you have completed or the highest degree you have received? Some college, no degree 12/25/2021 Sex and Gender Information Value Date Recorded Sex Assigned at Male 06/04/2021 12:44 PM CDT Legal Sex Male 8:30 AM ROBOTIC TOY INVENTOR Gender Identity Male 06/04/2021 12:44 PM CDT Sexual Orientation Straight 06/04/2021 12 :44 PM CDT Last Filed Vital Signs Vital Sign Reading Time Taken Comments Blood Pressure 110/78 10/19/2023 3:30 AM ROBOTIC TOY INVENTOR Pulse 83 10/19/2023 3:30 AM ROBOTIC TOY INVENTOR Temperature 36.3 C (97.3 F) 10/18/2023 10:30 PM ROBOTIC TOY INVENTOR Respiratory Rate 16 10/19/2023 3:30 AM ROBOTIC TOY INVENTOR Oxygen Saturation 93% 10/19/2023 3:30 AM ROBOTIC TOY INVENTOR Inhaled Oxygen Concentration - - Weight 87.9 kg (193 lb 12.6 oz) 024 10:18 PM ROBOTIC TOY INVENTOR Height 168.2 cm (5' 6.22) 12/25/2021 1 [...] tracking) 08/24/2024 Fasting Glucose for Diabetes Screening 10/27/2027 10/26/2024, 07/11/2024, 07/08/2024, Additional history exists Lipid (Cholesterol) Screening 03/01/2029 03/01/2024, 08/04/2016, 08/04/2016 (Performed elsewhere) Colonoscopy 11/09/2033 11/10/2023, 05/05/2021 Colorectal Cancer Screening 11/09/2033 DTaP,Tdap,and Td Vaccines (5 - Td or Tdap) 06/28/2034 06/28/2024, 02/18/2005, 02/12/1995, Additional history exists HIV Screening Completed 08/04/2016 Pneumococcal vaccine (0-49 years) Aged Out No longer eligible based on patient's age to complete this topic Procedures Procedure Name Priority Date/Time Associated Diagnosis Comments BASIC METABOLIC PANEL, S/P STAT 10/18/2023 11:35 PM ROBOTIC TOY INVENTOR HIV-1/-2 AG AND AB SCREEN Routine 08/04/2016 4:49 AM ROBOTIC TOY INVENTOR LIPID PANEL, S Routine 08/04/2016 4:49 AM ROBOTIC TOY INVENTOR from Last 3 Months or Most Recently Relevant to Health Maintenance Results * Basic Metabolic Panel (10/18/2023 11:35 PM ROBOTIC TOY INVENTOR) Potassium, P 4.2 3.6 - 5.2 mmol/L 10/18/2023 11:57 PM ROBOTIC TOY INVENTOR STMA Sodium, P 138 135 - 145 mmol/L 10/18/2023 11:57 PM ROBOTIC TOY INVENTOR STMA Chloride, P 103 98 - 107 mmol/L 10/18/2023 11:57 PM ROBOTIC TOY INVENTOR STMA Bicarbonate, P 26 22 - 29 mmol/L 10/18/2023 11:57 PM ROBOTIC TOY INVENTOR STMA Anion Gap, P 9 7 - 15 10/18/2023 11:57 PM ROBOTIC TOY INVENTOR STMA BUN (Blood Urea Nitrogen), P 16 8 - 24 mg/dL 10/18/2023 11:57 PM ROBOTIC TOY INVENTOR STMA Creatinine 1.02 0.74 - 1.35 mg/dL 10/18/2023 11:57 PM ROBOTIC TOY INVENTOR STMA Estimated GFR (eGFR) >90 >=60 mL/min/BSA 10/18/2023 11:57 PM ROBOTIC TOY INVENTOR [facility] Comment: Estimated GFR calculated using the 2020 CKD_EPI creatinine equation. Calcium, Total, P 9.3 8.6 - 10.0 mg/dL 10/18/2023 11:57 PM ROBOTIC TOY INVENTOR STMA Glucose, P 110 70 - 140 mg/dL 10/18/2023 11:57 PM ROBOTIC TOY INVENTOR [facility] Blood (Blood, Venous) 10/18/2023 11:35 PM ROBOTIC TOY INVENTOR 10/18/2023 11:39 PM ROBOTIC TOY INVENTOR Carroll Lewis M.D. LAB BLOOD ADD-ON Final Resul t [facility] [address] [place] [address], [facility] [address] [place] [address] * (ABNORMAL) Lipid Panel (08/04/2016 4:49 AM ROBOTIC TOY INVENTOR) Cholesterol, HDL, S 44 >=40 MG/DL [facility] Calculated LDL 159(H) SeeComment MG/DL [facility] Comment: REFERENCE VALUE Desirable: <100 Above Desirable: 100-129 Borderline high: 130-159 High: 160-189 Very high: > or =190 Cholesterol, Total 221(H) SeeComment MG/DL [facility] Comment: REFERENCE VALUE Desirable: < 200 Borderline high: 200 - 239 High: > or = 240 Triglycerides 89 SeeComment MG/DL [facility] Comment: REFERENCE VALUE Normal: <150 Borderline high: 150-199 High: 200-499 Very high: > or =500 Cholesterol, Non-HDL, Calculated 177(H) SeeComment MG/DL [facility] Comment: REFERENCE VALUE Desirable: <130 Above Desirable: 130-159 Borderline high: 160-189 High: 190-219 Very high: > or =220 08/04/2016 4:49 AM ROBOTIC TOY INVENTOR 08/04/2016 4:49 AM ROBOTIC TOY INVENTOR us Teofilo Hartman M.D. LAB BLOOD ADD-ON Final Res ult Performing Organization Address [facility]/ZIP Co de Phone Number [facility] [address] * HIV-1/-2 Ag and Ab Screen (08/04/2016 4:49 AM ROBOTIC TOY INVENTOR) Pathologist [facility] HIV-1/-2 Ag and Ab Screen, S Negative Negative [facility] Comment: Negative result does not rule out HIV infection. If acute HIV infection is suspected in a high-risk individual, submit plasma specimen for HIV-1 RNA quantification test (HIVDQ) and/or HIV-2 DNA/RNA test (FHV2Q). 08/04/2016 4:49 AM ROBOTIC TOY INVENTOR 08/04/2016 4:49 AM ROBOTIC TOY INVENTOR us Teofilo Hartman M.D. LAB MICROBIOLOGY - BLOOD O RDERABLES Final Result Performing Organization Address [facility]/ZIP Co de Phone Number [facility] [address] from Last 3 Months or Most Recently Relevant to [place] [address] [facility] Care Teams Astronomy Instructor Relationship Specialty Start Date End Date Elsewhere, Pcp PCP - General Internal Medicine 10/18/23
--- OUTSIDE RECORDS SUMMARY | 2025-02-01 20:57 | XMS_ITS | Clinical Summary ---
Author Organization [facility] Address [address] [place] [address] Care Team Providers Care Tool Grinder Operator External Name Role Phone Unavailable Primary Care Provider Unavailabl e Source Comments You are receiving this document as you are listed as the primary care provider,follow-up provider, or the patient has been referred to you for consultation.This is in compliance with the Medicare and[facility] EHR Incentive Program,which states Providers who transition their patient to another setting of careor provider of care or refers their patient to another provider of care shouldprovide summary care record for each transition of care or referral. [employer] Active Problems Problem Noted Date Diagnosed Date Abdominal distension, gaseous 09/29/2018 Nausea and vomiting 02/06/2018 History of Ghazal fundoplication 02/06/2018 Irritable bowel syndrome 10/18/2017 Pain 07/22/2017 Hypokalemia 07/01/2017 Epigastric pain 07/01/2017 Anxiety and depression 07/01/2017 GERD (gastroesophageal reflux disease) 7 Gastritis and duodenitis 04/03/2017 Acute gastric ulcer without hemorrhage or perfor ation 04/03/2017 Esophagitis, [place] grade C 04/03/2017 Hemiparesis 10/07/2016 Mass of joint of left shoulder 08/01/2016 Shoulder pain 10/05/[address] of the chest Paraesophageal hernia Diarrhea Resolved Problems Problem Noted Date Diagnosed Date Resolved Date Vomiting 01/06/2018 02/06/2018 Depression 02/04/2015 02/06/2018 Immunizations Immunization Administration Dates Next Due Flu Vac (3+ yrs) 09/13/2013,05/16/2009 Fluzone Qiv Multidose Vial 0.25 (6-35 Mos) 06/17 Influenza IIV4 (Quadrivalent) 0.5mL (26739) 05/25,06/25/2017,08/03/2014 Td 02/12/1995 Tdap 03/07/2014 Family History [...] Services) 1994 Adult Preventive Visit 1996 HepB Vaccine (1) 1997 Cholesterol 2013 DTaP/Tdap/Td Vaccine (3 - Tdap) 03/07/2024 03/07/2014, 02/12/1995 COVID-19 Vaccine (1 - season) 2024 Influenza Vaccine (Season Ended) 2025 06/17/2018, 06/17/2018, 06/25/2017, Additional history exists Zoster/Shingles Vaccine (1 of 2) 2028 HepA Vaccine Aged Out No longer eligi ble based on patient's age to complete this topic Hib Vaccine Aged Out No longer eligi ble based on patient's age to complete this topic IPV (Polio) Vaccine Aged Out No longe r eligible based on patient's age to complete this topic MCV4 Vaccine Aged Out No longer eligi ble based on patient's age to complete this topic Meningococcal B Vaccine Aged Out No l onger eligible based on patient's age to complete this topic Pneumococcal Vaccine Aged Out No long er eligible based on patient's age to complete this topic Insurance [facility] Advance Directives * Full Code (Latest Code Status on File) Date Activated Date Inactivated Comments 02/04/2015 8:00 AM 02/03/2015 7:00 PM * Full Code Date Activated Date Inactivated Comments 02/04/2015 8:00 AM 02/06/2015 8:24 AM
--- OUTSIDE RECORDS SUMMARY | 2025-02-01 20:57 | XMS_ITS | Clinical Summary ---
Author Organization [facility] Address [address] [place] [address] Care Team Providers Care Biomedical Equipment Technician Name Role Phone Bessy Menendez Primary Care Provider [phone] Allergies No known active allergies Medications acetaminophen [...] (2ND CHOICE). Active atorvastatin (LIPITOR) 20 mg tabletIndications: Mixed hyperlipidemia Take 1 Tablet (20 mg) by mouth at bedtime. 90 Tablet 3 03/02/20 24 Active dicyclomine (BENTYL) 10 mg capsule 06/22/20 24 Active sucralfate (CARAFATE) 1 gram tabletIndications: Chronic GERD Take 1 Tablet (1 g) by mouth four times daily before meals and at bedtime. 270 Tablet 1 07/08/20 24 Active famotidine (PEPCID) 20 mg tabletIndications: Recurrent upper abdominal pain,History of gastritis Take 1 Tablet (20 mg) by mouth 2 times daily if needed for Heartburn or GI Upset. 20 Tablet 07/11/20 24 Active gabapentin (NEURONTIN) 300 mg capsuleIndications :Paresthesia of upper and lower extremities of both sides,Cervical spondylosis,Cervic al radiculitis,Lumbar radiculitis,Lumbar spondylosis Take 1 Capsule (300 mg) by [...] 24 Active omeprazole (PRILOSEC) 40 mg Delayed-Release capsuleIndications :Abdominal distension, gaseous,Gastroesop hageal reflux disease with esophagitis, unspecified whether hemorrhage Take 1 Capsule (40 mg) by mouth once daily before a meal. 90 Capsule 3 09/09/19 25 Active tiZANidine (ZANAFLEX) 2 mg tabletIndications: Chronic left-sided low back pain with left-sided sciatica Take 1-2 Tablets (2-4 mg) by mouth at bedtime. 40 Tablet 10/06/19 25 Active escitalopram oxalate (LEXAPRO) 10 mg tabletIndications: JONATHAN (generalized anxiety disorder) Take 1/2 tablet once daily for 1 week, then increase to 1 tablet once daily. 90 Tablet 3 10/06/19 25 Active ondansetron (ZOFRAN ODT) 4 mg disintegrating tabletIndications: Nausea Place 1-2 Tablets (4-8 mg) on the tongue every 8 hours if needed for Nausea/Vomiting. 20 Tablet 10/27/19 25 Active Active Problems Problem Noted Date Diagnosed Date Hepatic steatosis 02/10/2024 Liver masses 02/10/2024 Early satiety 11/30/2021 Gastroparesis 11/30/2021 Pulmonary nodule 05/04/2021 Overview (05/04/2021): New left lower lobe pulmonary nodule noted on 03/26/2021 CT of the abdomen and pelvis done at [facility]. A chest CT was recommended for further evaluation. Acute on Chronic Abdominal Pain 05/03/2021 Adjustment disorder 08/22/2018 Advised about management of weight 06/28/2018 History of Ghazal fundoplication 02/06/2018 Irritable bowel syndrome 10/18/2017 Pain 07/22/2017 Anxiety and depression 07/01/2017 Epigastric pain 07/01/2017 GERD (gastroesophageal reflux disease) 7 Esophagitis, [place] grade C 04/03/2017 Gastritis and duodenitis 04/03/2017 Mass of joint of left shoulder 08/01/2016 Shoulder pain 10/05/[address] of the chest Resolved Problems Problem Noted Date Diagnosed Date Resolved Date Altered bowel habits 11/30/2021 024 Abdominal bloating 11/30/2021 4 Abdominal pain 03/21/2021 02/10/2024 Abdominal distension, gaseous 09/29/2018 02/10/2024 Nausea and vomiting 02/06/2018 02/10/20 24 Vomiting 01/06/2018 02/06/2018 Hypokalemia 07/01/2017 02/10/2024 Acute gastric ulcer without hemorrhage or perforation 04/03/2017 02/10/2024 Hemiparesis 10/07/2016 05/17/2021 Depression 02/04/2015 02/06/2018 Diarrhea 02/10/2024 Encounters Date Type Department Care Team Description 01/27/2025 Nurse Triage [facility] [address] [place] [address] Bessy Menendez PA Abdominal Pain from Last 3 Months Immunizations Immunization Administration [...] cancer Maternal Grandfather Heart Disease Mother w caesaro yaneli ilya and ended up starving Relation Name [...] on file Legal Sex Male 5:23 AM SWEATBAND FLANGER Gender Identity Not on file Sexual Orientation Not on file 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 Not on file Not on file Not on file Obstetrics History Last Filed Vital Signs Vital Sign Reading Time Taken Comments Blood Pressure 120/70 10/26/2024 7:45 AM SWEATBAND FLANGER Pulse 89 10/26/2024 7:45 AM SWEATBAND FLANGER Temperature 36.4 C (97.6 F) 10/26/2024 7:45 AM SWEATBAND FLANGER Respiratory Rate 16 10/20/2024 8:36 PM SWEATBAND FLANGER Oxygen Saturation 96% 10/26/2024 7:45 AM SWEATBAND FLANGER Inhaled Oxygen Concentration - - Weight 80.7 kg (178 lb) 10/26/2024 7:45 AM SWEATBAND FLANGER Height 167.6 cm (5' 6) 10/26/2024 7:45 AM SWEATBAND FLANGER Body Mass Index 28.73 10/26/2024 7:45 AM SWEATBAND FLANGER Plan of Treatment Health Maintenance Due Date Last Done Comments HIV for age 15-65 1993 Hepatitis C screening for ag e 18-79 1996 Pneumococcal series for age 6-49 (1 of 2 - PCV) 1997 COVID-19 vaccine series ( season) 2024 08/13/2021, 11/22/2020, 10/25/2020 Hepatitis B series for 19+ ( 3 of 3 - 19+ 3-dose series) 08/23/2024 06/28/2024, 11/11/2022 Depression screening for age 12+ 12/20/2024 12/21/2023, 10/27/2022, 05/17/2021, Additional history exists Influenza Vaccine (Season Ended) 2025 10/22/2022, 05/14/2021, 06/21/2019, Additional history exists BMI (ht and wt [...] Pressure On track(2017 9:03 AM CDT) Ayla Major RN Note: Use a pill guidance consultant to set up medications. Use an alarm or similar system for medication reminders. DIET - Patient understands and will follow prescribed diet Diet On track(2017 9:03 AM CDT) Ayla Major RN Note: Patient will follow soft food and bland diet. Drink small amounts of fluids at a time. Eat small portions of food per sitting. Do not eat or drink if you have the feeling that food or liquid is stuck in your throat. Procedures Procedure Name Priority Date/Time Associated Diagnosis Comments LIPID PANEL W REFLEX MEASURED LDL Routine 03/01/2024 2:22 PM CDT Screening cholesterol level SCAN-COLONOSCOPY 11/10/2023 2:00 PM CDT from Last 3 Months or Most Recently Relevant to Health Maintenance Results * (ABNORMAL) LIPID PANEL W REFLEX MEASURED LDL (03/01/2024 2:22 PM CDT) CHOLESTEROL,TOTAL 257(H) 100 - 199 mg/dL 03/02/2024 12:04 AM CDT [facility] Comment: Cholesterol, Total Reference Ranges Desirable <200 mg/dL Borderline 200-239 mg/dL High >=240 mg/dL TRIGLYCERIDES 303(H) <150 mg/dL 03/02/2024 12:04 AM CDT [facility] HDL CHOLESTEROL 36(L) >40 mg/dL 12:04 AM T [facility] NON-HDL CHOLESTEROL 221(H) <145 mg/dl 03/02/2024 12:04 AM CDT [facility] CHOL/HDL RATIO 7.14(H) <4.50 03/02/2024 12:04 AM T [facility] LDL CHOLESTEROL 160(H) <=130 mg/dL 03/02/2024 12:04 AM T [facility] VLDL CHOLESTEROL 61(H) <=30 mg/dL 03/02/2024 12:04 AM T [facility] PROVIDER ORDERED STATUS RANDOM 03/02/2024 12:04 AM CDT [facility] Blood BLOOD SPECIMEN / Unknown Venipuncture / Unknown 03/01/2024 2:22 PM CDT 03/01/2024 2:29 PM CDT us Bessy JOE CHEMISTRY Final Resu lt [facility] [address] [place] [address], [place] * SCAN-COLONOSCOPY (11/10/2023 2:00 PM CDT) Narrative Procedure Note Patrick Lopez MD - 11/10/2023 1:15 PM CDT [facility] [address] [place] [address], [address], [place] [address] Patient Name: Trevon Erickson Gender: Male Exam Date: 11/10/2023 Visit Number: [id number] Age: 42 Years Date of : 1980 Attending MD: Patrick Lopez MD Medical Record#: [id number] Procedure: Colonoscopy Indications: Change in bowel habits Referring MD: Referral Self Primary MD: Bessy Menendez PAC Medications: Admitting Medications: 0.9% Normal Saline at [facility] Intra Procedure Medications: Patient received monitored anesthesia [...] Self Primary MD: Bessy ALDANA Medications: Admitting Medication: 0.9% Normal Saline at [facility] Intra Procedure Medications: Patient received monitored anesthesia [...] distal and mid esophageal biopsies were obtained mei out EOE. Stomach: H. Pylori biopsies taken. [...] Interpreted at [facility], [address] [place] [address] Orders Instruction(s)/Education: Instruction/Education Timeframe Assessment Colon Cancer [...] by: Patrick Lopez MD 11/10/2023 cc: Bessy Menendez [facility] us Patrick Lopez MD OTHER Final Resul t from Last 3 Months or Most Recently Relevant to Health Maintenance Insurance [facility] * Guarantor: ORVILLE OJEDA Account Type Relation to Patient Date of Phone Billing Address [facility] [address] [place] [address] x5 (Home) [phone] x5 (Work) ATTN KAROLINA PAYABLE [address] [address] [place] [address] * Guarantor: NAVEED GUSMAN Account Type Relation to Patient Date of Phone Billing Address [facility] Employer ATTN ESTEFANIA DOWD [address] [place] [address] Advance Directives * Full Code (Latest Code [...] 4:22 AM 06/09/2019 5:23 PM Care Teams Biomedical Equipment Technician Relationship Specialty Start Date End Date Bessy Menendez PA [address] [place] [address] PCP - General Physician Construction Producer 11/04/23
--- OUTSIDE RECORDS SUMMARY | 2025-02-01 20:57 | XMS_ITS | Clinical Summary ---
Author Organization [facility] Address [address] [place] [address] Care Team Providers Care Cafeteria Attendant Name Role Phone Unruly Joshi MD Unavailable [phone] Donny Botello Primary Care Provider [phone] Allergies No known active allergies Medications albuterol [...] on file Legal Sex Male 11:09 AM LONGSHORE EQUIPMENT OPERATOR Gender Identity Not on file Sexual Orientation Not on file Last Filed Vital Signs Vital Sign Reading Time Taken Comments Blood Pressure 119/77 08/06/2019 3:30 PM LONGSHORE EQUIPMENT OPERATOR Pulse 71 08/06/2019 3:30 PM LONGSHORE EQUIPMENT OPERATOR Temperature 37.2 C (98.9 F) 08/06/2019 9:44 AM LONGSHORE EQUIPMENT OPERATOR Respiratory Rate 18 08/06/2019 3:30 PM LONGSHORE EQUIPMENT OPERATOR Oxygen Saturation 99% 08/06/2019 3:30 PM LONGSHORE EQUIPMENT OPERATOR Inhaled Oxygen Concentration - - Weight 68.9 kg (151 lb 14.4 oz) 016 10:54 AM LONGSHORE EQUIPMENT OPERATOR Height 166.7 cm (5' 5.63) 08/01/2016 1 0:54 AM LONGSHORE EQUIPMENT OPERATOR Body Mass Index 24.79 08/01/2016 10:54 AM LONGSHORE EQUIPMENT OPERATOR Plan of Treatment Not on file [place] [id number] Care Teams Cafeteria Attendant Relationship Specialty Start Date End Date Donny Botello [address] [place], [place] [id number] [place] [address] PCP - General Family Practice 08/01/16 Unruly Joshi MD [address] [place], [place] [id number] [place], [place] [id number] Orthopedics 07/28/16
[2025-02-01 21:02] VITALS: BP 149/84; PULSE 80; RESP 18; TEMP 36.8; O2SAT 99; BMI 29.1
--- NOTE | 2025-02-01 21:48 | CRLHL7_ITS ---
For Patients: As a result of the Century Cures Act, medical imaging exams and procedure reports are released immediately into your electronic medical record. You may view this report before your referring provider. If you have questions, please contact your health care provider. INDICATION: Vomiting, nausea, fever, abdominal pain. TECHNIQUE: CT abdomen and pelvis acquired with 89 cc of Isovue 370 IV contrast. COMPARISON: None. FINDINGS: Lower chest: Unremarkable. Liver: Fatty infiltration. Several small cysts within the liver. No suspicious mass. Normal size and contour. Gallbladder and bile ducts: Contracted gallbladder. No stones or inflammation. No biliary dilatation. Pancreas: Unremarkable. No mass or inflammation. Spleen: Unremarkable. Normal in size. No masses. Adrenal glands: Unremarkable. No nodules. Kidneys: Unremarkable. No suspicious masses, stones, or hydronephrosis. GI tract: Unremarkable. Normal in caliber. No sign of mass or inflammation. Normal appendix. Vasculature: Abdominal aorta is normal in caliber. Mesenteric arteries are patent. Lymph nodes: No lymphadenopathy. Peritoneum/Abdominal Wall: Unremarkable. No free air or significant free fluid. Pelvis: Unremarkable. Bones: Unremarkable for age. IMPRESSION: 1. No acute findings within the abdomen and pelvis. 2. Hepatic steatosis. Please note that all CT scans at this facility use dose modulation, iterative reconstruction, and/or weight-based dosing when appropriate to reduce radiation dose to as low as reasonably achievable. Dictated by Johnathan Simmons MD @ 02/01/2025 10:52:36 PM (Electronically Signed)
[2025-02-01] MEDS: PANTOPRAZOLE SODIUM 40 MG INJ 80 MG IVP (21:57)
[2025-02-01] MEDS: 0.9 % SODIUM CHLORIDE 1000 ml 1,000 ML IV ×3 (21:57→23:25)
[2025-02-01] MEDS: ONDANSETRON 2 MG/ML inj 4 MG IVP (21:57)
[2025-02-01] MEDS: GI COCKTAIL (VISC LIDO/ANTACID) 30 ML PO (22:03)
[2025-02-01 22:29] LABS: Albumin* 4.7 g/dL (3.3-5.0); Chloride* 104 mmol/L (96-114)
[2025-02-01 22:30] LABS: Potassium* 3.7 mmol/L (3.6-5.1); Sodium* 142 mmol/L (135-149)
[2025-02-01 22:32] LABS: Alanine Aminotransferase* 80 U/L (4-50); Alkaline Phosphatase* 70 U/L (40-150); Anion Gap 12 mEq/L (7-15); Aspartate Amino Transferase* 39 U/L (12-35); Bilirubin Total* 0.7 mg/dL (0.1-1.5); Blood Urea Nitrogen* 15 mg/dL (5-24); Carbon Dioxide* 26 mmol/L (20-32); Creatinine* 0.9 mg/dL (0.5-1.5); Est. Creatinine Clearance* 92.55; Estimated Glomerular Filt Rate 107 ml/min
[2025-02-01 22:33] LABS: Calcium* 9.7 mg/dL (8.4-10.6); Glucose* 107 mg/dL (60-115); Lipase* 281 U/L (23-300); Total Protein* 8.2 g/dL (6.0-8.3)
[2025-02-01 22:42] LABS: Basophils Absolute Auto 0.05 K/uL (0.00-0.30); Basophils Percent Auto 0.7 % (0.0-3.0); Eosinophils Percent Auto 2.7 % (0.0-7.0); Hematocrit 45.7 % (37.0-53.0); Hemoglobin* 15.6 gm/dL (13.5-17.5); Immature Granulocytes Abs Auto 0.06 K/uL (0.00-0.30); Immature Granulocytes Pct Auto 0.8 %; Lymphocytes Absolute Auto 2.99 K/uL (0.90-2.90); Lymphocytes Percent Auto 40.7 % (20-44); Mean Corpuscular HGB Conc 34 gm/dL (32-36); Mean Corpuscular Hemoglobin 29 pg (26-34); Mean Corpuscular Volume 86 fL (80-100); Monocytes Percent Auto 8.7 % (0.0-11.0); Neutrophils Absolute Auto 3.41 K/uL (1.7-7.0); Neutrophils Percent Auto 46.4 % (42.0-72.0); Platelet Count* 225 K/uL (140-440); RDW Coefficient of Variation % 13.1 % (11.5-15.5); White Blood Count* 7.35 K/uL (4.50-11.00)
[2025-02-01 22:51] LABS: Slide Review Reflex No
[2025-02-01 22:57] LABS: Appearance Urine Clear (Clear); Bilirubin Urine Negative (Negative); Blood Urine Negative (Negative); Color Urine Yellow (Yellow); Glucose Urine Negative (Negative); Ketones Urine Negative (Negative); Leukocyte Esterase Urine Negative (Negative); Nitrite Urine Negative (Negative); Protein Urine Negative (Negative); Urobilinogen Urine 0.2 (0.2-1.0)
[2025-02-01 23:05] VITALS: BP 129/81; PULSE 81; RESP 18; TEMP 36.8; O2SAT 99
[2025-02-01 23:08] VITALS: O2SAT 99
[2025-02-01 23:19] LABS: RBC Urine 0-2 (0-2); Squamous Epithelial Cell Urine Few (None-Few); WBC Urine 0-2 (0-5)
--- NOTE | 2025-02-01 23:26 | PM.IMHP1 ---
Assessment and Plan Assessment and plan (1) Epigastric pain: Status: Acute (2) Nausea and vomiting: Problem comment: - nausea with dry heaves (patient has h/o Ghazal fundoplication) Status: Acute (3) Anxiety and depression: Status: Chronic (4) Paraesophageal hernia: Status: Chronic (5) Gastroesophageal reflux disease: Status: Chronic (6) Hepatic steatosis: Problem comment: Previous diagnosis, seen again on CT abd/pelvis 02/01/25 - suspect this is the cause of mild chronic LFT elevations Status: Chronic (7) Melena: Status: Acute Plan 44 y/o male with extensive h/o GERD with esophagitis, gastritis, duodenitis for which he has h/o Ghazal fundoplication, now with new symptoms of intense GERD and nausea/dry heaving. - Admit for IVF, NPO and EGD in am, Dr. Foote aware - Recheck Hgb and LFTs in am - Dose of IV protonix given in ER, will order this daily Hospitalist- H&P: HPI History of Present Illness Time Seen by Provider: 23:20 Date Seen: 02/01/25 Chief complaint: Abdominal pain, throat swelling Narrative: Trevon Erickson is a 44 year old male with an extensive history of GERD, esophagitis, gastritis, duodenitis, Ghazal fundoplication, gastroparesis, anxiety and depression who presented through the ER with a 5-7 day history of epigastric abdominal pain, nausea, and dry heaving. The epigastric pain sometimes extends up through his chest and feels like burning or acid reflux, which he has had a lot of in the past. He says that he does not know if it is from dry heaving or something else, but he is having bilateral anterior neck pain that is tender to the touch and is not a sore throat. He felt feverish yesterday and had some melena over the last few days along with a small spot of bright red blood yesterday when he wiped only, there was no bright red blood in the stool. He did not have any melena or bright red blood in his stool today; he had a normal looking bowel movement this morning. Review of Systems Status of ROS: Reports: 10 or more systems reviewed and unremarkable except as noted in History and below Medical Decision Making Medical Decision Making Code Status: FULL CODE Has patient completed a Health Care Directive: No During This Stay, Who Would You Like To Make Decisions For You In The Event You Are Unable To Make Them For Yourself?: Yadiel and Adrianne Graham (on emergency contact list) [facility] Medical History (Updated 02/02/25 @ 00:22 by Jeannine Elise MD) Gastroparesis ?K31.84 - Gastroparesis (ICD-10) Liver masses ?R16.0 - Hepatomegaly, not elsewhere classified (ICD-10) Hepatic steatosis ?K76.0 - Fatty (change of) liver, not elsewhere classified (ICD-10) Early satiety ?R68.81 - Early satiety (ICD-10) Pulmonary nodule ?R91.1 - Solitary pulmonary nodule (ICD-10) Mass of joint of left shoulder ?M25.812 - Other specified joint disorders, left shoulder (ICD-10) Gastritis and duodenitis ?K29.90 - Gastroduodenitis, unspecified, without bleeding (ICD-10) Esophagitis, [place] grade C ?K20.80 - Other esophagitis without bleeding (ICD-10) Chronic abdominal pain ?R10.9 - Unspecified abdominal pain (ICD-10) ?G89.29 - Other chronic pain (ICD-10) Peptic ulcer ?K27.9 - Peptic ulcer, site unspecified, unspecified as acute or chronic, without hemorrhage or perforation (ICD-10) Paraesophageal hernia ?K44.9 - Diaphragmatic hernia without obstruction or gangrene (ICD-10) Nausea and vomiting (02/06/18) ?R11.2 - Nausea with vomiting, unspecified (ICD-10) Irritable bowel syndrome (10/18/17) ?K58.9 - Irritable bowel syndrome without diarrhea (ICD-10) Gastroesophageal reflux disease ?K21.9 - Gastro-esophageal reflux disease without esophagitis (ICD-10) Anxiety and depression (07/01/17) ?F41.9 - Anxiety disorder, unspecified (ICD-10) ?F32.A - Depression, unspecified (ICD-10) Surgical History H/O circumcision ?Z98.890 - Other specified postprocedural states (ICD-10) History of tonsillectomy (1984) ?Z90.89 - Acquired absence of other organs (ICD-10) History of repair of hiatal hernia (2018) ?Z98.890 - Other specified postprocedural states (ICD-10) ?Z87.19 - Personal history of other diseases of the digestive system (ICD-10) History of Ghazal fundoplication (02/06/18) ?Z98.890 - Other specified postprocedural states (ICD-10) History of esophagogastroduodenoscopy (EGD) ?Z98.890 - Other specified postprocedural states (ICD-10) History of colonoscopy ?Z98.890 - Other specified postprocedural states (ICD-10) Family History Mother Heart disease Father Heart disease Maternal Grandmother Stomach cancer Grandmother Diabetes Social History (Updated 02/02/25 @ 00:06 by Jeannine Elise MD) Narrative: Single, no kids, 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 [employer], Non-smoker, Social EtOH, denies recreational drug use What is your current living situation?: I presently have a place to live Problems where you live: no known problems In the past 12 months, utilities in danger of being shut off: no In past 12 months, lack of transportation kept you from medical appts, meetings, work, or getting things needed for daily living: no In the past 12 mos, have been you worried that your food would run out before you had money to buy more?: never true In the past 12 mos, the food you bought just didn't last and you didn't have money to buy more?: never true Smoking Status: Never smoker Second hand tobacco smoke exposure: No How often do you have a drink containing alcohol: monthly or less How often do you have six or more drinks on one occasion: Never AUDIT-C Alcohol total score: 1 Non-prescribed substance use: denies use How often does anyone, including family, friends and others, physically hurt you: never How often does anyone, including family, friends and others, insult or talk down to you: never How often does anyone, including family, friends and others, threaten you with harm: never How often does anyone, including family, friends and others, scream or curse at you: never service: No Meds Home Medications and Allergies Home Medications ?Medication ?Instructions ?Recorded ?Confirmed ?Type omeprazole 40 mg capsule,delayed 40 mg PO DAILY 10/24/24 02/02/25 History release sucralfate 1 gram tablet 1 g PO QID 10/24/24 02/02/25 History escitalopram oxalate 10 mg tablet 10 mg PO DAILY 02/02/25 02/02/25 History Allergies Allergy/AdvReac Type Severity Reaction Status Date / Time No Known Drug Allergies Allergy Verified 02/01/25 22:40 Exam Narrative: Exam Narrative: General: No acute distress. Awake alert oriented x3. HEENT: Normocephalic atraumatic, pupils equally round and reactive to light and accommodation. Oropharynx clear. Mucous membranes are slightly dry. No cervical lymphadenopathy, thyromegaly or carotid bruits. No JVD. Neck is tender to palpation bilaterally anteriorly, which reproduces his pain in that area. Cardiovascular: Regular rate and rhythm. No murmurs, gallops, or rubs. Chest: Mildly tender to palpation over the lower 3rd of the sternum. No increased work of breathing. Clear to auscultation bilaterally. No crackles or wheezes. Abdomen: Bowel sounds present. Soft, nondistended, tender to palpation in the epigastrium, no rebound tenderness or guarding. No hepatosplenomegaly or masses. Rectal: old, non bleeding hemorrhoids without swelling or induration, some stool in the vault, no gross blood or melena, no masses. Extremities: No edema, no cyanosis or clubbing. Skin: No jaundice, no pallor, no rashes on visible skin. Const: Vital Signs, click to edit/add: Vital Signs - 24 hr 02/01/25 21:02 02/01/25 23:05 02/01/25 23:08 Temperature 98.2 F 98.2 F Pulse Rate [Right Pulse Oximeter] 80 81 Respiratory Rate 18 18 Blood Pressure [Le ft Upper Arm] 149/84 H 129/81 Pulse Oximetry 99 99 99 Oxygen Delivery Me thod Room Air Room Air Hospitalist - H&P: Result Labs Labs: Short CBC 02/01/25 Range/Units 22:00 WBC 7.35 (4.50-11.00) K/uL Hgb 15.6 (13.5-17.5) gm/dL Hct 45.7 (37.0-53.0) % Plt Count 225 (140-440) K/uL BMP 02/01/25 22:00 Sodium 142 Potassium 3.7 Chloride 104 Carbon Dioxide 26 BUN 15 Creatinine 0.9 Glucose 107 Calcium 9.7 Liver Function 02/01/25 Range/Units 22:00 Total Bilirubin 0.7 (0.1-1.5) mg/dL AST 39 H (12-35) U/L ALT 80 H (4-50) U/L Alkaline Phosphatase 70 (40-150) U/L Albumin 4.7 (3.3-5.0) g/dL Urine 02/01/25 Range/Units 22:54 Urine Color Yellow (Yellow) Urine Appearance Clear (Clear) Urine pH 7.0 (5.0-8.5) Ur Specific [place] 1.010 (1.000-1.030) Urine Protein Negative (Negative) Urine Glucose (UA) Negative (Negative) 02/02/2025 EKG: Normal sinus rhythm, 67 beats per minute, left axis deviation, incomplete right bundle-branch block, minimal voltage criteria for LVH, maybe normal variant, nonspecific ST wave abnormality. When compared with the EKG from 10/18/2023, minimal voltage criteria for LVH is a new finding. Ordering Physician: Johnathan Ordonez M.D. Date of Service: 02/01/25 Procedure(s): CT abdomen pelvis w con Accession Number(s): [id number] cc: Bessy Menendez PA-C; Johnathan Ordonez M.D.~ For Patients: As a result of the Century Cures Act, medical imaging exams and procedure reports are released immediately into your electronic medical record. You may view this report before your referring provider. If you have questions, please contact your health care provider. INDICATION: Vomiting, nausea, fever, abdominal pain. TECHNIQUE: CT abdomen and pelvis acquired with 89 cc of Isovue 370 IV contrast. COMPARISON: None. FINDINGS: Lower chest: Unremarkable. Liver: Fatty infiltration. Several small cysts within the liver. No suspicious mass. Normal size and contour. Gallbladder and bile ducts: Contracted gallbladder. No stones or inflammation. No biliary dilatation. Pancreas: Unremarkable. No mass or inflammation. Spleen: Unremarkable. Normal in size. No masses. Adrenal glands: Unremarkable. No nodules. Kidneys: Unremarkable. No suspicious masses, stones, or hydronephrosis. GI tract: Unremarkable. Normal in caliber. No sign of mass or inflammation. Normal appendix. Vasculature: Abdominal aorta is normal in caliber. Mesenteric arteries are patent. Lymph nodes: No lymphadenopathy. Peritoneum/Abdominal Wall: Unremarkable. No free air or significant free fluid. Pelvis: Unremarkable. Bones: Unremarkable for age. IMPRESSION: 1. No acute findings within the abdomen and pelvis. 2. Hepatic steatosis. Please note that all CT scans at this facility use dose modulation, iterative reconstruction, and/or weight-based dosing when appropriate to reduce radiation dose to as low as reasonably achievable. Dictated by Johnathan Simmons MD @ 02/01/2025 10:52:36 PM (Electronically Signed)
[2025-02-02] VITALS (13 sets, daily range): BP systolic 104–141; BP diastolic 71–93; PULSE 60–75; RESP 16–18; TEMP 36.2–37; O2SAT 93–97
[2025-02-02] MEDS: LACTATED RINGERS 1000 ML 1,000 ML 125 ML IV ×3 (00:32→18:11)
[2025-02-02] MEDS: SODIUM CHLORIDE 0.9 % (FLUSH) 10 ML SYRINGE 5 ML IVF ×4 (00:32→22:09)
[2025-02-02 00:35] LABS: Troponin I* < 0.01 ng/mL (0.01-0.04)
--- NOTE | 2025-02-02 01:11 | ED_ITS ---
HPI - General Adult General Date Seen: 02/01/25 Chief complaint: Abdominal Pain Stated complaint: Abdominal pain, throat swelling Time Seen by Provider: 02/01/25 21:09 History of Present Illness HPI narrative: This is a pleasant 44-year-old gentleman accompanied to the ER this evening by his friend for evaluation of nausea, vomiting,, epigastric abdominal pain, and burning in his throat. (of note she has chief complaint was swelling in his throat but that is not accurate. He does has a burning feeling in the back of his throat.) He notes he has a long history of esophagitis and reflux. He has had previous Ghazal fundoplication done by surgeons at [facility] several years ago. Even since then he has had episodes where he gets ulcers in his stomach and esophagus. He has apparently had endoscopies a couple of times by GI doctors through [facility]. He is currently on omeprazole, Carafate, and also has ranitidine on his med list. For the past 3 days or so since Thursday or Thursday he started having symptoms including upper abdominal pain, nausea, and burning feeling, up into his esophagus and chest. He has had a lot of nausea and difficulty with swallowing. He is not having any food stuck in his throat. He has had some coughing. No fever. No shortness of breath. He is not having any back pain. His abdominal wound is mostly in the center. It does not radiate to the left upper quadrant or right upper quadrant. He feels like he has been so symptomatic and so nauseous that he has not been able to eat or drink. He he thinks he probably needs to be hospitalized for treatment, IV fluids, and endoscopy Related Data Home Medications ?Medication ?Instructions ?Recorded ?Confirmed omeprazole 40 mg capsule,delayed 40 mg PO DAILY 02/02/25 release sucralfate 1 gram tablet 1 g PO QID 10/24/24 02/02/25 escitalopram oxalate 10 mg tablet 10 mg PO DAILY 02/0202/02/25 Allergies Allergy/AdvReac Type Severity Reaction Status Date / Time No Known Drug Allergies Allergy Verified 02/01/25 22:40 [facility] Medical History (Updated 02/02/25 @ 00:22 by Jeannine Elise MD) Gastroparesis ?K31.84 - Gastroparesis (ICD-10) Liver masses ?R16.0 - Hepatomegaly, not elsewhere classified (ICD-10) Hepatic steatosis ?K76.0 - Fatty (change of) liver, not elsewhere classified (ICD-10) Early satiety ?R68.81 - Early satiety (ICD-10) Pulmonary nodule ?R91.1 - Solitary pulmonary nodule (ICD-10) Mass of joint of left shoulder ?M25.812 - Other specified joint disorders, left shoulder (ICD-10) Gastritis and duodenitis ?K29.90 - Gastroduodenitis, unspecified, without bleeding (ICD-10) Esophagitis, [place] grade C ?K20.80 - Other esophagitis without bleeding (ICD-10) Chronic abdominal pain ?R10.9 - Unspecified abdominal pain (ICD-10) ?G89.29 - Other chronic pain (ICD-10) Peptic ulcer ?K27.9 - Peptic ulcer, site unspecified, unspecified as acute or chronic, without hemorrhage or perforation (ICD-10) Paraesophageal hernia ?K44.9 - Diaphragmatic hernia without obstruction or gangrene (ICD-10) Nausea and vomiting (02/06/18) ?R11.2 - Nausea with vomiting, unspecified (ICD-10) Irritable bowel syndrome (10/18/17) ?K58.9 - Irritable bowel syndrome without diarrhea (ICD-10) Gastroesophageal reflux disease ?K21.9 - Gastro-esophageal reflux disease without esophagitis (ICD-10) Anxiety and depression (07/01/17) ?F41.9 - Anxiety disorder, unspecified (ICD-10) ?F32.A - Depression, unspecified (ICD-10) Surgical History H/O circumcision ?Z98.890 - Other specified postprocedural states (ICD-10) History of tonsillectomy (1984) ?Z90.89 - Acquired absence of other organs (ICD-10) History of repair of hiatal hernia (2017) ?Z98.890 - Other specified postprocedural states (ICD-10) ?Z87.19 - Personal history of other diseases of the digestive system (ICD-10) History of Ghazal fundoplication (02/06/18) ?Z98.890 - Other specified postprocedural states (ICD-10) History of esophagogastroduodenoscopy (EGD) ?Z98.890 - Other specified postprocedural states (ICD-10) History of colonoscopy ?Z98.890 - Other specified postprocedural states (ICD-10) Family History Mother Heart disease Father Heart disease Maternal Grandmother Stomach cancer Grandmother Diabetes Social History (Updated 02/02/25 @ 00:06 by Jeannine Elise MD) Narrative: Single, no kids, 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 [place], Non-smoker, Social EtOH, denies recreational drug use What is your current living situation?: I presently have a place to live Problems where you live: no known problems Problems where you live details: N/A In the past 12 months, utilities in danger of being shut off: no In past 12 months, lack of transportation kept you from medical appts, meetings, work, or getting things needed for daily living: no In the past 12 mos, have been you worried that your food would run out before you had money to buy more?: never true In the past 12 mos, the food you bought just didn't last and you didn't have money to buy more?: never true Smoking Status: Never smoker Second hand tobacco smoke exposure: No How often do you have a drink containing alcohol: monthly or less How often do you have six or more drinks on one occasion: Never AUDIT-C Alcohol total score: 1 Non-prescribed substance use: denies use How often does anyone, including family, friends and others, physically hurt you : never How often does anyone, including family, friends and others, insult or talk down to you: never How often does anyone, including family, friends and others, threaten you with harm: never How often does anyone, including family, friends and others, scream or curse at you: never service: No Exam Narrative: Exam Narrative: Constitutional: Appears well-developed and well-nourished. Alert. Conversant. Non toxic. HENT: Head: Atraumatic. Nose: Nose normal. Mouth/Throat: Oral mucosa is clear but dry-not desiccated or cracked.. no trismus. Pharynx normal. Tonsils symmetric. No tonsillar enlargement, erythema, or exudate. Eyes: Conjunctivae normal. EOM normal. Pupils equal, round, and reactive to light. No scleral icterus. Neck: Normal range of motion. Neck supple. No tracheal deviation present. No JVD Cardiovascular: Normal rate, regular rhythm. No gallop. No friction rub. No murmur heard. Symmetric radial artery pulses Pulmonary/Chest: Effort normal. No stridor. No respiratory distress. No wheezes. No rales. No rhonchi . No ribcage tenderness. Abdominal: Soft. Bowel sounds normal. No distension. No mass. Epigastric tenderness. No right upper quadrant tenderness or Vazquez sign. No rebound. No guarding. Musculoskeletal: RUE: Normal range of motion. No tenderness. No deformity LUE: Normal range of motion. No tenderness. No deformity RLE: Normal range of motion. No edema. No tenderness. No deformity LLE: Normal range of motion. No edema. No tenderness. No deformity Neurological: Alert and oriented to person, place, and time. Normal strength. CN II-VII intact. No sensory deficit. GCS eye subscore is 4. GCS verbal subscore is 5. GCS motor subscore is 6. Normal coordination Skin: Skin is warm and dry. No rash noted. No pallor. Normal capillary refill. Psychiatric: Normal mood. Normal affect. Polite. Somewhat uncomfortable appearing. Const: Vital Signs, click to edit/add: Vital Signs - 24 hr 02/01/25 21:02 02/01/25 23:05 02/01/25 23:08 Temperature 98.2 F 98.2 F Pulse Rate [Right Pulse Oximeter] 80 81 Respiratory Rate 18 18 Blood Pressure [Le ft Upper Arm] 149/84 H 129/81 Pulse Oximetry 99 99 99 Oxygen Delivery Me thod Room Air Room Air Course Course ED Course: Recheck-marginal improvement with meds. Still feels quite nauseous. Does not think he has improved enough to go home. Reevaluation(s) Reevaluation #1: Discussed with our general surgeon, Dr. Sanchez. She feels the patient could potentially be able to stay here in [place] did have a diagnostic endoscopy tomorrow. I discussed this plan occur the patient and his friend and they are agreeable. They definitely feel that he is too ill to go home. He would love to stay here in [place] rather than transferred [place] as long as we could do the endoscopy here. Reevaluation #2: Recheck-discussed with our hospitalist, Dr. Elise who graciously agrees to admit for supportive care. Vital Signs Vital signs: Initial Vital Signs Temperature 98.2 F 02/01/25 21:02 Temperature Source Temporal Artery Scan 02/01/25 21:02 Pulse Rate 80 02/01/25 21:02 Respiratory Rate 18 02/01/25 21:02 Blood Pressure 149/84 H 02/01/25 21:02 Blood Pressure Mean 105 02/01/25 21:02 Blood Pressure Position Sitting 02/01/25 21:02 Pulse Oximetry 99 02/01/25 21:02 Oxygen Delivery Method Room Air 02/01/25 21:02 Vital Signs Temperature 98.2 F 02/01/25 21:02 Pulse Rate 80 02/01/25 21:02 Respiratory Rate 18 02/01/25 21:02 Blood Pressure 149/84 H 02/01/25 21:02 Pulse Oximetry 99 02/01/25 21:02 Oxygen Delivery Method Room Air 02/01/25 21:02 Temperature 97.7 F 02/02/25 00:11 Pulse Rate 75 02/02/25 00:11 Respiratory Rate 18 02/02/25 00:11 Blood Pressure 141/88 H 02/02/25 00:11 Pulse Oximetry 96 02/02/25 00:11 Oxygen Delivery Method Room Air 02/02/25 00:11 Medications Administered Medications: Generic Name Dose Route Start Last Admin Trade Name Freq PRN Reason Stop Dose Admin Lactated Ringer's 1,000 mls @ 125 mls/hr 02/02/25 00:03 02/02/25 00:32 Lactated Ringers 1000 Ml IV 125 mls/hr .Q8H JAVIER Administration Sodium Chloride 5 ml 02/02/25 00:03 02/02/25 00:32 Sodium Chloride 0.9 % (Flush) 10 Ml Syringe IVF 5 ml .FLUSH PRN Administration Discontinued Medications Generic Name Dose Route Start Last Admin Trade Name Freq PRN Reason Stop Dose Admin Sodium Chloride 1,000 mls @ 1,000 mls/hr 02/01/25 22:00 02/01/25 22:48 0.9 % Sodium Chloride 1000 Ml IV 02/01/25 22:59 Infused .Q1H JAVIER Infusion Sodium Chloride 1,000 mls @ 1,000 mls/hr 02/01/25 23:30 02/01/25 23:24 0.9 % Sodium Chloride 1000 Ml IV 02/02/25 00:29 1,000 mls/hr .Q1H JAVIER Administration Sodium Chloride 1,000 mls @ 1,000 mls/hr 02/01/25 23:30 02/01/25 23:25 0.9 % Sodium Chloride 1000 Ml IV 02/02/25 00:29 Infused .Q1H JAVIER Infusion Lidocaine/Aluminum/Magnesium/Simeth 30 ml 02/01/25 21:48 02/01/25 22:03 Gi Cocktail (Visc Lido/Antacid) 30 Ml PO 02/01/25 21:49 30 ml ONCE ONE Administration Ondansetron HCl 4 mg 02/01/25 21:48 02/01/25 21:57 Ondansetron 2 Mg/Ml Inj IVP 02/01/25 21:49 4 mg ONCE ONE Administration Pantoprazole Sodium 80 mg 02/01/25 21:48 02/01/25 21:57 Pantoprazole Sodium 40 Mg Inj IVP 02/01/25 21:49 80 mg ONCE ONE Administration Medical Decision Making MDM Narrative Medical decision making narrative: Presented to the Emergency Department with a 3 day history of nausea, vomiting, along with epigastric abdominal pain. The differential diagnosis of abdominal pain includes: Appendicitis, Bowel Obstruction, Ulcer, Ischemia, Cholecystitis, Diverticulitis, Pancreatitis, UTI, kidney stone, Enteritis/Colitis, amongst many other etiologies. The patient has a long history of reflux, gastritis, peptic ulcer disease and apparently a soft diet is. Presentation will be most consistent with exacerbation of those condition. Laboratory testing does not reveal and alternative cause for the patient's pain. CBC does show a white count of 15 which could reflect hemoconcentration. However metabolic profile shows normal bicarb, normal BUN, normal creatinine. LFTs are mildly abnormal. Lipase is normal. He is not having any pain localizing to the right upper quadrant. No visible stones in the gallbladder on the CT. At this point suspicion for gallbladder pathology causing the patient's symptoms is low so would hold off on paging in the catheterization laboratory technician on the overnight shift. CT Imaging is noted to be normal. No evidence for any other immediate surgical pathology causing his symptoms such as bowel obstruction or perforation or abscess. Patient will be admitted to the hospitalist service for IV fluids and supportive care overnight. Anticipate probably will have EGD tomorrow. Lab Data Labs: Lab Results 02/01/25 02/01/25 Range/Units 22:00 22:54 WBC 7.35 (4.50-11.00) K/uL RBC 5.30 (4.30-5.90) m/uL Hgb 15.6 (13.5-17.5) gm/dL Hct 45.7 (37.0-53.0) % MCV 86 (80-100) fL MCH 29 (26-34) pg MCHC 34 (32-36) gm/dL RDW Coeff of [place] 13.1 (11.5-15.5) % Plt Count 225 (140-440) K/uL Neut % (Auto) 46.4 (42.0-72.0) % Lymph % (Auto) 40.7 (20-44) % [place] % (Auto) 8.7 (0.0-11.0) % Eos % (Auto) 2.7 (0.0-7.0) % Baso % (Auto) 0.7 (0.0-3.0) % Neut # (Auto) 3.41 (1.7-7.0) K/uL Lymph # (Auto) 2.99 H (0.90-2.90) K/uL [place] # (Auto) 0.60 (0.00-0.90) K/UL Eos # (Auto) 0.20 (0.00-0.50) K/uL Baso # (Auto) 0.05 (0.00-0.30) K/uL Abs Immat Gran (auto) 0.06 (0.00-0.30) K/uL Imm/Tot Granulo (auto) 0.8 % Sodium 142 (135-149) mmol/L Potassium 3.7 (3.6-5.1) mmol/L Chloride 104 (96-114) mmol/L Carbon Dioxide 26 (20-32) mmol/L Anion Gap 12 (7-15) mEq/L BUN 15 (5-24) mg/dL Creatinine 0.9 (0.5-1.5) mg/dL Estimated Creat Clear 92.55 Estimated GFR 107 ml/min Glucose 107 (60-115) mg/dL Calcium 9.7 (8.4-10.6) mg/dL Total Bilirubin 0.7 (0.1-1.5) mg/dL AST 39 H (12-35) U/L ALT 80 H (4-50) U/L Alkaline Phosphatase 70 (40-150) U/L Troponin I < 0.01 (0.01-0.04) ng/mL Total Protein 8.2 (6.0-8.3) g/dL Albumin 4.7 (3.3-5.0) g/dL Lipase 281 (23-300) U/L Urine Color Yellow (Yellow) Urine Appearance Clear (Clear) Urine pH 7.0 (5.0-8.5) Ur Specific [place] 1.010 (1.000-1.030) Urine Protein Negative (Negative) Urine Glucose (UA) Negative (Negative) Urine Ketones Negative (Negative) Urine Blood Negative (Negative) Urine Nitrite Negative (Negative) Urine Bilirubin Negative (Negative) Urine Urobilinogen 0.2 (0.2-1.0) Ur Leukocyte Esterase Negative (Negative) Urine RBC 0-2 (0-2) Urine WBC 0-2 (0-5) Ur Squamous Epith Cells Few (None-Few) Urine Bacteria None (None) Discharge Plan Discharge Clinical Impression: Vomiting, Abdominal pain Patient Disposition: Admitted As Observation
--- NOTE | 2025-02-02 04:24 | PC.NURSE ---
Shift note: Patient is alert and oriented. Brought to the floor at 0000 on a wheelchair accompanied by a lady who he confirmed as friend. Patient reported a defused abdominal pain prominent at the epigastric region involving the esophagus. He rated pain at 4 on admission. Nothing seems to aggravate the pain or help with the pain. Patient stated that the pain has been present for over a month. He has been on omeprazole since the start of the pain. He denied diarrhea, N/V. He noticed small blood in the stool yesterday. No fever recorded but confirmed mild abdominal tenderness. Patient is independent in room. EKG taken, telemetry applied. IV R/L set up at 0045 to infuse at 125ml/hr. No stool yet. Therefore no stool for lab investigation as prescribed. Patient had adequate sleep.
[2025-02-02] MEDS: ONDANSETRON 2 MG/ML inj 4 MG IVP ×3 (06:20→16:16)
[2025-02-02 06:26] LABS: Basophils Absolute Auto 0.03 K/uL (0.00-0.30); Basophils Percent Auto 0.6 % (0.0-3.0); Eosinophils Absolute Auto 0.16 K/uL (0.00-0.50); Hematocrit 41.6 % (37.0-53.0); Hemoglobin* 13.8 gm/dL (13.5-17.5); Immature Granulocytes Abs Auto 0.01 K/uL (0.00-0.30); Immature Granulocytes Pct Auto 0.2 %; Lymphocytes Absolute Auto 2.28 K/uL (0.90-2.90); Lymphocytes Percent Auto 43.4 % (20-44); Mean Corpuscular HGB Conc 33 gm/dL (32-36); Mean Corpuscular Hemoglobin 29 pg (26-34); Mean Corpuscular Volume 87 fL (80-100); Monocytes Percent Auto 7.4 % (0.0-11.0); Neutrophils Absolute Auto 2.38 K/uL (1.7-7.0); Neutrophils Percent Auto 45.4 % (42.0-72.0); Platelet Count* 171 K/uL (140-440); Red Blood Count 4.81 m/uL (4.30-5.90); White Blood Count* 5.25 K/uL (4.50-11.00)
[2025-02-02 06:29] LABS: Slide Review Reflex No
[2025-02-02 06:38] LABS: Albumin* 3.7 g/dL (3.3-5.0); Chloride* 107 mmol/L (96-114); Potassium* 4.2 mmol/L (3.6-5.1); Sodium* 138 mmol/L (135-149)
[2025-02-02 06:41] LABS: Alanine Aminotransferase* 60 U/L (4-50); Alkaline Phosphatase* 52 U/L (40-150); Anion Gap 6 mEq/L (7-15); Aspartate Amino Transferase* 29 U/L (12-35); Bilirubin Total* 0.7 mg/dL (0.1-1.5); Blood Urea Nitrogen* 11 mg/dL (5-24); Calcium* 8.5 mg/dL (8.4-10.6); Carbon Dioxide* 25 mmol/L (20-32); Creatinine* 0.7 mg/dL (0.5-1.5); Est. Creatinine Clearance* 118.99; Estimated Glomerular Filt Rate 115 ml/min; Glucose* 106 mg/dL (60-115); Total Protein* 6.2 g/dL (6.0-8.3)
--- NOTE | 2025-02-02 07:45 | P.ANES_ITS ---
Anesthesia Charges Start Date/Time Anesthesia Start Date: 02/02/25 Anesthesia Start Time: 08:11 Stop Date/Time Anesthesia Stop Date: 02/02/25 Anesthesia Stop Time: 08:33 Coding CPT Codes CPT Codes: ANES UPR GI NDSC PX NOS - 83960 ([id number]) P2 - PATIENT W/MILD SYST DISEASE, QK - COATING MIXER SUPERVISOR 2-4 CNCRNT ANES PROC, QX - DRIER FEEDER SVC W/ MD MED DIRECTION
--- NOTE | 2025-02-02 07:45 | W.ANESCHARGE ---
Anesthesia Charges Start Date/Time Anesthesia Start Date: 02/02/25 Anesthesia Start Time: 08:11 Stop Date/Time Anesthesia Stop Date: 02/02/25 Anesthesia Stop Time: 08:33 Coding CPT Codes CPT Codes: ANES UPR GI NDSC PX NOS - 73180 ([id number]) P2 - PATIENT W/MILD SYST DISEASE, QK - FOUNTAIN HELPER 2-4 CNCRNT ANES PROC, QX - SALES OUTFITTER SVC W/ MD MED DIRECTION
[2025-02-02 08:06] LABS: Fecal Occult Blood* Negative (Negative)
--- NOTE | 2025-02-02 08:34 | P.ANES_ITS ---
Anesthesia Charges Start Date/Time Anesthesia Start Date: 02/02/25 Anesthesia Start Time: 08:11 Stop Date/Time Anesthesia Stop Date: 02/02/25 Anesthesia Stop Time: 08:33 Coding CPT Codes CPT Codes: ANES UPR GI NDSC PX NOS - 11668 ([id number]) P2 - PATIENT W/MILD SYST DISEASE, QX - AUTOMOTIVE MAINTENANCE TECHNICIAN SVC W/ MD MED DIRECTION, QK - WOOD CARVING LATHE OPERATOR 2-4 CNCRNT ANES PROC
--- NOTE | 2025-02-02 08:34 | W.ANESCHARGE ---
Anesthesia Charges Start Date/Time Anesthesia Start Date: 02/02/25 Anesthesia Start Time: 08:11 Stop Date/Time Anesthesia Stop Date: 02/02/25 Anesthesia Stop Time: 08:33 Coding CPT Codes CPT Codes: ANES UPR GI NDSC PX NOS - 21760 ([id number]) P2 - PATIENT W/MILD SYST DISEASE, QX - FORESTRY FACULTY MEMBER SVC W/ MD MED DIRECTION, QK - CABLE TECHNICIAN 2-4 CNCRNT ANES PROC
[2025-02-02] MEDS: OMEPRAZOLE 20 MG CAPSULE DR PO ×2 (10:43→20:57)
[2025-02-02] MEDS: KETOROLAC 30 MG/ML inj IVP (16:20)
--- NOTE | 2025-02-02 16:29 | P.IMPN_ITS ---
Assessment and Plan Assessment and plan (1) Nausea and vomiting: Problem comment: - nausea with dry heaves (patient has h/o Ghazal fundoplication). Longstanding recurrent problem but by patient's history worse in the last 2 weeks and has been for a long time. Persistent symptoms after EGD today. Reporting he can not tolerate water. Recent evaluation has shown a normal functioning gallbladder and no gastroparesis. No evidence of bowel obstruction or other anatomical problem to account for his current symptoms. Status: Acute (2) Epigastric pain: Problem comment: Acute on chronic Status: Acute (3) Paraesophageal hernia: Problem comment: Uncertain if this is playing a role in his symptoms Status: Chronic (4) Gastroesophageal reflux disease: Problem comment: Improved after Ghazal fundoplication Status: Chronic (5) Irritable bowel syndrome: Problem comment: Uncertain if this is contributing to his current symptoms. Status: Chronic (6) Melena: Problem comment: Patient had some melena. Upper endoscopy is showing some changes a could result in some minor bleeding. Hemoglobin is 13.8 this morning, relatively stable Status: Acute (7) Anxiety and depression: Status: Chronic Plan Continue in hospital for another day of symptom management for his intractable nausea and vomiting. IV fluids and IV medications. Patient would like to return to care with [facility]. Remains to be seen whether this can be done as an outpatient or transfer for inpatient care depending on his clinical course. Total Time Spent Total Time Spent: Total time spent today is 55 minutes in reviewing outside records, coordination of care, discussion with other providers, patient and his ongoing evaluation management of his chronic nausea and vomiting Subjective Date Seen: 02/02/25 Interval history: Trevon Erickson is a 44 year old male with an extensive history of GERD, esophagitis, gastritis, duodenitis, Ghazal fundoplication, gastroparesis, anxiety and depression who presented through the ER with a 5-7 day history of epigastric abdominal pain, nausea, and dry heaving. The epigastric pain sometimes extends up through his chest and feels like burning or acid reflux, which he has had a lot of in the past. He says that he does not know if it is from dry heaving or something else, but he is having bilateral anterior neck pain that is tender to the touch and is not a sore throat. He felt feverish yesterday and had some melena over the last few days along with a small spot of bright red blood yesterday when he wiped only, there was no bright red blood in the stool. He did not have any melena or bright red blood in his stool today; he had a normal looking bowel movement this morning. 02/02/2025: Patient underwent upper endoscopy today with superficial gastric ulcer without active bleeding some erythematous mucosa some evidence of esophagitis. Multiple biopsies obtained. After his endoscopy he continued to have prominent nausea. He reported being intolerant of drinking water. He continues on IV fluids. I reviewed his past medical history. He reports he has had longstanding problems with gastroesophageal reflux and recurrent vomiting. He underwent a Ghazal fundoplication in about 2017 or 2018. He reports that helped his reflux symptoms and heartburn a lot but did not take away his problems with ongoing recurrent nausea and vomiting. Vomiting is primarily dry heaves as he reports not much gastric contents comes up into his throat after the Ghazal fundoplic ation. He does report episodes of this seem to be better since his Ghazal fundoplication but he still has recurrent episodes. He reports what is been going onto him with recurrent dry heaves in the last couple weeks is worse than he can remember since his Ghazal fundoplication. He has had evaluation through [facility] for this including in the last year he has had a HIDA scan which was normal showing ejection fraction 71%. He had a gastric emptying study which was also normal. Chart indicates a diagnosis of gastroparesis but it is not clear how that was determined. Chart also notes that he has had previous peptic ulcer disease, gastritis, duodenitis, esophagitis and irritable bowel syndrome. He has also had early satiety. He remains on a PPI at home on a chronic basis. He does not drink alcohol and he does not use cannabis. He has been treated with Zofran which he finds occasionally helpful and Raglan which he finds to be less helpful. Exam Narrative: Exam Narrative: He is alert and appears in no distress. He gives his own history. Oropharynx is normal. Neck is supple without mass or adenopathy. Respirations are clear to auscultation. Cardiovascular: S1, S2, regular rate and rhythm. Abdomen: Bowel sounds active. Abdomen is soft without tenderness or mass. External genitalia normal. Extremities normal without edema. Const: Vital Signs, click to edit/add: Vital Signs - 24 hr 02/01/25 21:02 02/01/25 23:05 02/01/25 23:08 Temperature 98.2 F 98.2 F Pulse Rate Pulse Rate [Left P ulse Oximeter] Pulse Rate [Right Pulse Oximeter] 80 81 Respiratory Rate 18 18 Blood Pressure [Le ft Arm] Blood Pressure [Le ft Upper Arm] 149/84 H 129/81 Pulse Oximetry 99 99 99 Oxygen Delivery Me thod Room Air Room Air 02/02/25 00:11 02/02/25 00:40 02/02/25 02:55 Temperature 97.7 F 97.6 F Pulse Rate 74 Pulse Rate [Left P ulse Oximeter] 75 70 Pulse Rate [Right Pulse Oximeter] Respiratory Rate 18 18 Blood Pressure [Le ft Arm] 141/88 H 111/73 Blood Pressure [Le ft Upper Arm] Pulse Oximetry 96 94 Oxygen Delivery Me thod Room Air Room Air 02/02/25 07:00 02/02/25 07:00 02/02/25 09:03 Temperature 97.1 F L Pulse Rate 75 Pulse Rate [Left P ulse Oximeter] 60 Pulse Rate [Right Pulse Oximeter] Respiratory Rate 16 Blood Pressure [Le ft Arm] 129/93 H Blood Pressure [Le ft Upper Arm] Pulse Oximetry 96 94 Oxygen Delivery Me thod Room Air Room Air 02/02/25 09:20 02/02/25 09:35 02/02/25 09:50 Temperature Pulse Rate Pulse Rate [Left P ulse Oximeter] 70 65 66 Pulse Rate [Right Pulse Oximeter] Respiratory Rate Blood Pressure [Le ft Arm] 118/82 117/78 114/83 Blood Pressure [Le ft Upper Arm] Pulse Oximetry 95 Oxygen Delivery Me thod 02/02/25 11:21 02/02/25 15:00 02/02/25 15:00 Temperature 97.9 F Pulse Rate Pulse Rate [Left P ulse Oximeter] 66 Pulse Rate [Right Pulse Oximeter] Respiratory Rate 16 16 16 Blood Pressure [Le ft Arm] 129/93 H Blood Pressure [Le ft Upper Arm] Pulse Oximetry 96 96 Oxygen Delivery Me thod Room Air Room Air 02/02/25 15:00 02/02/25 15:00 Temperature 98.6 F Pulse Rate 69 Pulse Rate [Left P ulse Oximeter] 68 Pulse Rate [Right Pulse Oximeter] Respiratory Rate 16 Blood Pressure [Le ft Arm] 127/86 Blood Pressure [Le ft Upper Arm] Pulse Oximetry 97 Oxygen Delivery Me thod Room Air Documenting provider has reviewed patient's vital signs: yes Labs Labs: Laboratory Results - last 24 hr 02/01/25 02/01/25 02/02/25 22:00 22:54 00:03 WBC 7.35 RBC 5.30 Hgb 15.6 Hct 45.7 MCV 86 MCH 29 MCHC 34 RDW Coeff of [place]izz[place] 13.1 Plt Count 225 Neut % (Auto) 46.4 Lymph % (Auto) 40.7 [place] % (Auto) 8.7 Eos % (Auto) 2.7 Baso % (Auto) 0.7 Neut # (Auto) 3.41 Lymph # (Auto) 2.99 H [place] # (Auto) 0.60 Eos # (Auto) 0.20 Baso # (Auto) 0.05 Abs Immat Gran (auto) 0.06 Imm/Tot Granulo (auto) 0.8 Sodium 142 Potassium 3.7 Chloride 104 Carbon Dioxide 26 Anion Gap 12 BUN 15 Creatinine 0.9 Estimated Creat Clear 92.55 Estimated GFR 107 Glucose 107 Calcium 9.7 Total Bilirubin 0.7 AST 39 H ALT 80 H Alkaline Phosphatase 70 Troponin I < 0.01 Total Protein 8.2 Albumin 4.7 Lipase 281 Urine Color Yellow Urine Appearance Clear Urine pH 7.0 Ur Specific [place] 1.010 Urine Protein Negative Urine Glucose (UA) Negative Urine Ketones Negative Urine Blood Negative Urine Nitrite Negative Urine Bilirubin Negative Urine Urobilinogen 0.2 Ur Leukocyte Esterase Negative Urine RBC 0-2 Urine WBC 0-2 Ur Squamous Epith Cells Few Urine Bacteria None Stool Occult Blood Lab Acknowledgement Test Added 02/02/25 02/02/25 05:54 07:25 WBC 5.25 RBC 4.81 Hgb 13.8 Hct 41.6 MCV 87 MCH 29 MCHC 33 RDW Coeff of [place] 13.0 Plt Count 171 Neut % (Auto) 45.4 Lymph % (Auto) 43.4 [place] % (Auto) 7.4 Eos % (Auto) 3.0 Baso % (Auto) 0.6 Neut # (Auto) 2.38 Lymph # (Auto) 2.28 [place] # (Auto) 0.40 Eos # (Auto) 0.16 Baso # (Auto) 0.03 Abs Immat Gran (auto) 0.01 Imm/Tot Granulo (auto) 0.2 Sodium 138 Potassium 4.2 Chloride 107 Carbon Dioxide 25 Anion Gap 6 L BUN 11 Creatinine 0.7 Estimated Creat Clear 118.99 Estimated GFR 115 Glucose 106 Calcium 8.5 Total Bilirubin 0.7 AST 29 ALT 60 H Alkaline Phosphatase 52 Troponin I Total Protein 6.2 Albumin 3.7 Lipase Urine Color Urine Appearance Urine pH Ur Specific [place] Urine Protein Urine Glucose (UA) Urine Ketones Urine Blood Urine Nitrite Urine Bilirubin Urine Urobilinogen Ur Leukocyte Esterase Urine RBC Urine WBC Ur Squamous Epith Cells Urine Bacteria Stool Occult Blood Negative Lab Acknowledgement
[2025-02-02 17:51] LABS: C Reactive Protein* < 0.5 mg/dL (0.5-1.0)
--- NOTE | 2025-02-02 18:24 | PC.NURSE ---
Pt is pleasant to care for. Pt has not shown much improvement today. VSS. Epigastric pain is minimally controlled with IV toradol; pt states that was the most effective medication. Pt received two doses of IV zofran on this shift for ongoing nausea. Pt attempted a clear liquid diet at noon and had immediate nausea and dry heaving. Pt is ambulating in room independently and voiding well.
[2025-02-02] MEDS: ACETAMINOPHEN 500 MG TABLET 1000 MG PO (20:57)
[2025-02-02] MEDS: METOCLOPRAMIDE HCL 5 MG/ML INJ 10 MG IVP (22:09)
[2025-02-03 01:39] VITALS: BP 106/65; PULSE 65; RESP 16; TEMP 36.7; O2SAT 92
[2025-02-03] MEDS: LACTATED RINGERS 1000 ML 1,000 ML 125 ML IV (01:40)
--- NOTE | 2025-02-03 05:11 | PC.NURSE ---
Shift note: Patient alert and oriented. Pain level is moderate but reported not feeling well. At 22:30, pt reported feeling nauseated. Metoclopramide given together with Tylenol for pain which was effective. Vitally stable. Denied fever and chill. Patient is independent in room.
[2025-02-03 07:00] VITALS: BP 117/82; PULSE 70; PULSE 78; RESP 18; TEMP 36.8; O2SAT 96
[2025-02-03 07:45] LABS: Albumin* 3.6 g/dL (3.3-5.0); Chloride* 107 mmol/L (96-114); Sodium* 139 mmol/L (135-149)
[2025-02-03 07:48] LABS: Alanine Aminotransferase* 57 U/L (4-50); Alkaline Phosphatase* 51 U/L (40-150); Anion Gap 6 mEq/L (7-15); Aspartate Amino Transferase* 27 U/L (12-35); Bilirubin Total* 0.9 mg/dL (0.1-1.5); Blood Urea Nitrogen* 8 mg/dL (5-24); Carbon Dioxide* 26 mmol/L (20-32); Creatinine* 0.9 mg/dL (0.5-1.5); Est. Creatinine Clearance* 92.55; Estimated Glomerular Filt Rate 107 ml/min; Total Protein* 6.3 g/dL (6.0-8.3)
[2025-02-03 07:49] LABS: Calcium* 8.7 mg/dL (8.4-10.6); Glucose* 100 mg/dL (60-115)
[2025-02-03] MEDS: ESCITALOPRAM 10 MG TABLET PO (08:37)
[2025-02-03] MEDS: KETOROLAC 30 MG/ML inj IVP (08:37)
[2025-02-03] MEDS: OMEPRAZOLE 20 MG CAPSULE DR PO (08:37)
[2025-02-03] MEDS: ACETAMINOPHEN 500 MG TABLET 1000 MG PO (11:30)
[2025-02-03] MEDS: ONDANSETRON 2 MG/ML inj 4 MG IVP (11:31)
--- NOTE | 2025-02-03 11:58 | PM.DS1 ---
DS: Providers Provider Date Seen: 02/03/25 Date of admission: 02/01/25 23:54 Primary care physician: Bessy Menendez PA-C Admitting Clinician: Jeannine Elise MD Attending Physician on discharge: Edilson Wilkes MD DS: Diagnosis Discharge Diagnosis (1) Functional dyspepsia: Status: Acute Problem details: Patient has had longstanding upper gastrointestinal symptoms including epigastric pain, nausea, vomiting. He has been diagnosed in the past with gastroesophageal reflux and peptic ulcer disease and treated for these. Extensive evaluation through [facility] has shown no other significant structural abnormalities other than his peptic ulcer disease. Testing has included normal CT scans, normal HIDA scan, normal enteroscopy, normal gastric emptying study. Multiple medications have been tried without obvious benefit including dicyclomine, Levsin, ondansetron, metoclopramide,PPI. (2) Melena: Status: Acute Problem details: Patient had some melena. Upper endoscopy is showing some changes a could result in some minor bleeding. Hemoglobin is 13.8 this morning, relatively stable (3) Hepatic steatosis: Status: Chronic Problem details: Previous diagnosis, seen again on CT abd/pelvis 02/01/25 - suspect this is the cause of mild chronic LFT elevations (4) Anxiety and depression: Status: Chronic (5) Nausea and vomiting: Status: Acute Problem details: - nausea with dry heaves (patient has h/o Ghazal fundoplication). Longstanding recurrent problem but by patient's history worse in the last 2 weeks and has been for a long time. Persistent symptoms after EGD today. Reporting he can not tolerate water. Recent evaluation has shown a normal functioning gallbladder and no gastroparesis. No evidence of bowel obstruction or other anatomical problem to account for his current symptoms. (6) Paraesophageal hernia: Status: Chronic Problem details: Uncertain if this is playing a role in his symptoms DS: Summary Hospital Course Hospital Course: Trevon Erickson is a 44 year old male with an extensive history of GERD, esophagitis, gastritis, duodenitis, Ghazal fundoplication, gastroparesis, anxiety and depression who presented through the ER with a 5-7 day history of epigastric abdominal pain, nausea, and dry heaving. The epigastric pain sometimes extends up through his chest and feels like burning or acid reflux, which he has had a lot of in the past. He says that he does not know if it is from dry heaving or something else, but he is having bilateral anterior neck pain that is tender to the touch and is not a sore throat. He felt feverish yesterday and had some melena over the last few days along with a small spot of bright red blood yesterday when he wiped only, there was no bright red blood in the stool. He did not have any melena or bright red blood in his stool today; he had a normal looking bowel movement this morning. 02/02/2025: Patient underwent upper endoscopy today with superficial gastric ulcer without active bleeding some erythematous mucosa some evidence of esophagitis. Multiple biopsies obtained. After his endoscopy he continued to have prominent nausea. He reported being intolerant of drinking water. He continues on IV fluids. I reviewed his past medical history. He reports he has had longstanding problems with gastroesophageal reflux and recurrent vomiting. He underwent a Ghazal fundoplication in about 2017 or 2018. He reports that helped his reflux symptoms and heartburn a lot but did not take away his problems with ongoing recurrent nausea and vomiting. Vomiting is primarily dry heaves as he reports not much gastric contents comes up into his throat after the Ghazal fundoplication. He does report episodes of this seem to be better since his Ghazal fundoplication but he still has recurrent episodes. He reports what is been going onto him with recurrent dry heaves in the last couple weeks is worse than he can remember since his Ghazal fundoplication. He has had evaluation through [facility] for this including in the last year he has had a HIDA scan which was normal showing ejection fraction 71%. He had a gastric emptying study which was also normal. Chart indicates a diagnosis of gastroparesis but it is not clear how that was determined. Chart also notes that he has had previous peptic ulcer disease, gastritis, duodenitis, esophagitis and irritable bowel syndrome. He has also had early satiety. He remains on a PPI at home on a chronic basis. He does not drink alcohol and he does not use cannabis. He has been treated with Zofran which he finds occasionally helpful and Raglan which he finds to be less helpful. 02/03/2025: Patient reports feeling quite a bit better today. He was able to tolerate breakfast. Abdominal pain is better. No nausea vomiting overnight. I reviewed with him the extensive evaluation he has had today 8. Indicate that I think his problem is functional dyspepsia without structural abnormality. I encouraged him to work with a provider over time to manage his symptoms and minimize his suffering. I think curing his symptoms is going to be unlikely. I think additional testing especially more radiation is likely to cause more harm than good unless he has a significant change in his status. I did encourage him to get ongoing outpatient management of this. After some discussion he is willing to try yet a new medicine. I have prescribed nortriptyline 10 mg at bedtime for management of his functional dyspepsia. He may need an increase in this medication to get some benefit. I recommend outpatient follow-up with primary care and also [facility]. Status at Discharge Overall status at discharge: patient is back to baseline Time Spent with Patient Time attestation: Total time spent providing and/or coordinating discharge services: 45 minutes Time spent: Greater than 30 minutes Exam Narrative: Exam Narrative: He is alert appears in no distress. Speech is normal. Mood and affect are bright today. He is seen with his today. Breathing is unlabored. Less anxious today. Const: Vital Signs, click to edit/add: Vital Signs - 24 hr 02/02/25 15:00 02/02/25 15:00 02/02/25 15:00 Temperature Pulse Rate 69 Pulse Rate [Left P ulse Oximeter] 66 Respiratory Rate 16 16 Blood Pressure [Le ft Arm] Pulse Oximetry 96 [facility] 02/02/25 15:00 02/02/25 19:00 02/02/25 22:07 Temperature 98.6 F 98.1 F Pulse Rate Pulse Rate [Left P ulse Oximeter] 68 70 66 Respiratory Rate 16 16 16 Blood Pressure [Le ft Arm] 127/86 126/88 Pulse Oximetry 97 94 [facility] Room Air 02/02/25 22:07 02/02/25 22:07 02/02/25 23:00 Temperature 98.1 F Pulse Rate 61 Pulse Rate [Left P ulse Oximeter] 66 Respiratory Rate 16 16 Blood Pressure [Le ft Arm] 104/71 Pulse Oximetry 93 94 [facility] Room Air 02/03/25 01:39 02/03/25 07:00 02/03/25 07:00 Temperature 98.1 F 98.3 F Pulse Rate Pulse Rate [Left P ulse Oximeter] 65 70 Respiratory Rate 16 18 18 Blood Pressure [Le ft Arm] 106/65 117/82 Pulse Oximetry 92 96 96 Oxygen Delivery Me thod Room Air Room Air Room Air Documenting provider has reviewed patient's vital signs: yes DS: Data Data Completed and Pending Labs on day of discharge: Labs from last 24 hours 02/03/25 02/02/25 05:59 17:12 Sodium 139 Potassium 4.0 Chloride 107 Carbon Dioxide 26 Anion Gap 6 L BUN 8 Creatinine 0.9 Estimated Creat Clear 92.55 Estimated GFR 107 Glucose 100 Calcium 8.7 Total Bilirubin 0.9 AST 27 ALT 57 H Alkaline Phosphatase 51 C-Reactive Protein < 0.5 L Total Protein 6.[address] scan - abdomen: Radiologist's impression: INDICATION: Vomiting, nausea, fever, abdominal pain. TECHNIQUE: CT abdomen and pelvis acquired with 89 cc of Isovue 370 IV contrast. COMPARISON: None. FINDINGS: Lower chest: Unremarkable. Liver: Fatty infiltration. Several small cysts within the liver. No suspicious mass. Normal size and contour. Gallbladder and bile ducts: Contracted gallbladder. No stones or inflammation. No biliary dilatation. Pancreas: Unremarkable. No mass or inflammation. Spleen: Unremarkable. Normal in size. No masses. Adrenal glands: Unremarkable. No nodules. Kidneys: Unremarkable. No suspicious masses, stones, or hydronephrosis. GI tract: Unremarkable. Normal in caliber. No sign of mass or inflammation. Normal appendix. Vasculature: Abdominal aorta is normal in caliber. Mesenteric arteries are patent. Lymph nodes: No lymphadenopathy. Peritoneum/Abdominal Wall: Unremarkable. No free air or significant free fluid. Pelvis: Unremarkable. Bones: Unremarkable for age. IMPRESSION: 1. No acute findings within the abdomen and pelvis. 2. Hepatic steatosis. Discharge Plan Discharge Disposition: Home, Self-Care Date of Admission: 02/01/25 23:54 Attending Provider on Discharge: Jeramie Wilkes Primary Care Provider: Bessy Menendez Condition: Improved Anticipated Discharge Date/Time: 02/03/25 10:27 Discharge Medications: New ondansetron 4 mg tablet,disintegrating 4 mg PO Q6H PRN (Reason: nausea and vomiting) Qty: 30 0RF nortriptyline 10 mg capsule 10 mg PO QHS Qty: 30 2RF Continued sucralfate 1 gram tablet 1 g PO QID omeprazole 40 mg capsule,delayed release(DR/EC) 40 mg PO DAILY escitalopram oxalate 10 mg tablet 10 mg PO DAILY Discharge Orders: Discharge Order (Routine); Ordered 02/03/25 Ordered By: Jeramie Wilkes Patient Education: Nortriptyline (By mouth), Ondansetron (By mouth), Acute Nausea and Vomiting (DC), Abdominal Pain (DC) Additional Instructions: I have started you on a new medicine, nortriptyline, for your nausea vomiting and abdominal pain. This medicine is an old medicine originally used for depression. I am prescribing it for you at a much lower dose as it has been shown to benefit symptoms you are having. It takes weeks to work and may require an increased dose in the future. I recommend you see a doctor at [facility] to continue to help manage she or trouble some intestinal symptoms. Activity Level: No Restrictions Discharge Diet: Regular Follow Up Appointments: Bessy Menendez PA-C [Primary Care Provider, Family Practice] - 02/17/25 9:50 am Referral Note: [facility] for follow up in 2 weeks Forms: [employer] Info Instructions
--- NOTE | 2025-02-03 12:55 | PC.NURSE ---
The patient was alert and oriented and vitally stable upon initial assessment. No significant findings on assessment. Absent nausea which was primary concern. Tolerated porridge for breakfast and was tolerating PO fluids. Patient discharged at noon after MD assessment. Follow up and new medication education provided at discharge. They appeared in a normal state of rajni at that time.
== END 2025-02-03 12:00 | disposition home or self-care (01) ==
LOC: ED 23:21 → MEDSURG 23:54
PROVIDERS: Family Medicine; Admitting Provider Family Medicine; Emergency Provider Emergency Medicine; PCP Physician Assistant; Visit Provider Family Medicine
DX: K30 Functional dyspepsia (principal); R11.0 Nausea; R11.11 Vomiting without nausea; K76.0 Fatty (change of) liver, not elsewhere classified; K44.9 Diaphragmatic hernia without obstruction or gangrene; K21.9 Gastro-esophageal reflux disease without esophagitis; K58.9 Irritable bowel syndrome, unspecified; K92.1 Melena; F41.9 Anxiety disorder, unspecified; F32.A Depression, unspecified; K27.9 Peptic ulcer, site unspecified, unspecified as acute or chronic, without hemorrhage or perforation; K20.90 Esophagitis, unspecified without bleeding; M54.2 Cervicalgia; Z90.89 Acquired absence of other organs; Z87.19 Personal history of other diseases of the digestive system; Z98.890 Other specified postprocedural states
CPT/HCPCS: 00731; 36415; 43239; 74177; 80053; 81001; 82270; 83690; 84484; 85025; 86140; 93005; 94761; 99284; 99285; A9270; G0378; J1885; J2405; J2470; J2704; J2765; J3490; J7030; J7120; Q9967

== ENCOUNTER 2025-04-16 19:51 | Emergency (ER) | payer MEDICAID, SELFPAY ==
--- OUTSIDE RECORDS SUMMARY | 2025-04-16 19:53 | XMS_ITS | Clinical Summary ---
Author Organization [facility] Address [address] [place] [address] Care Team Providers Care Professor Of Graphic Design Name Role Phone Bessy Menendez Primary Care Provider [phone] Allergies No known active allergies Medications acetaminophen [...] of the abdomen and pelvis done at [place]. A chest CT was recommended for further evaluation. Acute on Chronic Abdominal Pain 05/03/2021 Adjustment disorder 08/22/2018 Advised about management of weight 06/28/2018 History of Ghazal fundoplication 02/06/2018 Irritable bowel syndrome 10/18/2017 Pain 07/22/2017 Anxiety and depression 07/01/2017 Epigastric pain 07/01/2017 GERD (gastroesophageal reflux disease) 7 Esophagitis, [place]field grade C 04/03/2017 Gastritis and duodenitis 04/03/2017 [...] Encounters Date Type Department Care Team Description 5 Telephone [facility] [address] [phone] Levar Syed MD RDC Conference 5 Telephone [facility] [address] [phone] Levar Syed MD Reflux (Records) 5 8:31 AM CDT Anesthesia Event [facility] [address] [place] [address] Dario Forte MD Hendricks, Jeanne Marie, CRNA 5 8:05 AM CDT - 5 9:05 AM CDT Surgery [facility] [address] [place] [address] Jeff Campos MD ESOPHAGOGASTRODUODENOSCOPY WITH ESOPHAGEAL BALLOON DISTENTION STUDY and biopsies 5 6:51 AM CDT - 5 9:47 AM CDT Hospital Encounter [facility] [address] [place] [address] Jeff Campos MD Discharge Disposition: Home Self Care 5 Travel 5 Travel 5 1:30 PM CDT Office Visit [facility] [address] [phone] Levar Syed MD Consult (GERD consult. ) 5 Travel 5 Telephone [facility] [address] [phone] Levar Syed MD RDC Care Coordination 5 Telephone [facility] [address] [phone] Levar Syed MD RDC Referral (Updated Chart Prep) 5 Transcribe Orders [facility] [address] [phone] Levar Syed MD 5 Lab Requisition [facility] [phone] Edna Foote MD 5 Orders Only [facility] Scanner 1 scan: (1-Ord) [facility], UPPER GI, 02/02/2025 5 Orders Only [facility] Scanner 1 scan: (1-Ord) [place], CT ABDOMEN PELVIS W CON, 02/01/2025 5 Nurse Triage [facility] [address] [place] [address] Bessy Menendez PA Abdominal Pain from Last 3 Months Immunizations Immunization Administration Dates Next Due COVID-19 vaccine (Moderna 100mcg/0.5mL) [place] 11/22/2020,10/25/2020 Hep B (Hepatitis B (Adult) Recombinant Adjuvanted) 11/11/2022 Hepatitis B (Adult) 06/28/2024 Influenza, IIV3 (Age >=3 years) 09/13/2013,05/16 Influenza, IIV4 05/14/2021, 9,06/17/2018,2016,08/04/2016,08/03/2014 Influenza, IIV4 (=>6mos) MDV 10/22/2022, 018 Td (Age >=7 Years) 02/12/1995 Tdap 06/28/2024,03/07/2014 Family History Medical History Relation Name Comments Heart Disease Father had two stents placed Stomach cancer Maternal Grandfather Heart Disease Mother w caesaro yaneli caraballo and ended up starving Relation Name Status [...] on file 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 Gender Identity Not on file Sexual Orientation Not on file 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 Not on file Not on file Not on file Obstetrics History Last Filed Vital Signs Vital Sign Reading Time Taken Comments Blood Pressure 116/79 03/27/2025 9:30 AM CDT Pulse 60 03/27/2025 9:30 AM CDT Temperature 36.4 C (97.5 F) 03/27/2025 9:00 AM CDT Respiratory Rate 16 03/27/2025 9:00 AM CDT Oxygen Saturation 97% 03/27/2025 9:30 AM CDT Inhaled Oxygen Concentration - - Weight 83 kg (183 lb) 03/27/2025 7:10 AM CDT Height 167.6 cm (5' 6) 03/08/2025 1:32 PM CDT Body Mass Index 29.54 03/08/2025 1:32 PM CDT Plan of Treatment Health Maintenance Due Date Last Done Comments HIV for age 15-65 1993 Hepatitis C screening for age 18-79 1996 COVID-19 vaccine series (2023- season) 2024 08/13/2021, 11/22/2020, 10/25/2020 Hepatitis B series for 19+ (3 of 3 - 19+ 3-dose series) 08/23/2024 06/28/2024, 11/11/2022 Depression screening for age 12+ 12/20/2024 12/21/2023, 10/27/2022, 05/17/2021, Additional history exists Influenza Vaccine (#1) 2025 , 05/14/2021, 06/21/2019, Additional history exists BMI (ht and wt on same day) for age 18+ 03/08/2026 03/08/2025, 10/26/2024, 09/14/2024, Additional history exists Lipids for age 45-75 03/01/2029 03/01/2024, 11/01/19 10 Colonoscopy through age 75 11/09/203311/09, 05/05/2021, 07/10/2017 Tetanus booster 06/28/2034 06/28/2024, 02/21, 02/12/1995 Pneumococcal series for age 6-49 Aged Out No longer eligible based on patient's age to complete this topic Goals Goal Patient Goal Type Associated Problems Recent Progress Patient-Stated? Author MEDICATION - Patient will take medication as prescribed Blood Pressure On track(2017 9:03 AM CDT) Ayla Major, RN Note: Use a pill automotive light mechanic to set up medications. Use an alarm [...] Procedure Name Priority Date/Time Associated Diagnosis Comments PATH TISSUE EXAM Today 03/27/2025 8:49 AM CDT ENDOSCOPY 03/27/2025 8:24 AM CDT ESOPHAGOGASTRODUODENOSCOPY W ITH ESOPHAGEAL BALLOON DISTENTION STUDY Tier 3: within 90 days 03/27/2025 8:23 AM CDT see MD dictation PATH TISSUE EXAM Routine 02/03/2025 8:18 AM CDT LAB TRACKING EVENT Routine 02/02/2025 8:18 AM CDT SCAN-ENDOSCOPY 02/02/2025 12:00 AM CDT SCAN-CT INTERPRETATION 12:00 AM CDT LIPID PANEL W REFLEX MEASURE D LDL Routine 03/01/2024 2:22 PM CDT Screening cholesterol level SCAN-COLONOSCOPY 11/10/2023 2:00 PM CDT from Last 3 Months or Most Recently Relevant to Health Maintenance Results * PATH TISSUE EXAM (03/27/2025 8:49 AM CDT) Only the most recent of2 resultswithin the time period is included. Case Report Pathology Report Case: [id number] Authorizing Provider: Jeff Campos MD Collected: 03/27/2025 0849 Ordering Location: [facility] Received: 03/27/2025 1041 [facility] Pathologist: Mikey Coe MD Specimen: Distal Esophagus Biopsy 03/28/2025 12:37 PM CDT [facility] Final Diagnosis A) ESOPHAGUS, DISTAL, BIOPSY: 1. Specialized Sears's mucosa 2. Negative for dysplasia 3. Background squamous mucosa with inflammatory changes consistent with reflux esophagitis 03/28/2025 12:37 PM CDT [facility] at 1237 CDT Comment Case seen in consultation with Dr. Dias. 03/28/2025 12:37 PM CDT [facility] Clinical Information Mr. Erickson is a 44 y.o. with heartburn. EGD findings: Normal GE junction dynamics. Decreased esophageal motility. Short solitary tongue of TABITHA (1 cm proximal to the gastric folds). Loosened Ghazal. 03/28/2025 12:37 PM CDT [facility] Gross Description A) Received in formalin are 2 zapata mucosal fragments averaging 3 mm in greatest dimension, which are entirely submitted in one cassette. It is labeled with the patient's name and designated distal esophagus biopsy. TATYANA Lovelace 03/27/2025 12:10 PM 03/28/2025 12:37 PM CDT [facility] Microscopic Description The final diagnosis is based on microscopic examination of appropriate sections of all specimens. 03/28/2025 12:37 PM CDT [facility] Additional Information Interpreted at [facility] - [address], [place] [address] 03/28/2025 12:37 PM CDT [facility] Biopsy (Distal Esophagus Biopsy) 03/27/2025 8:49 AM CDT 03/27/2025 10:41 AM CDT us Jeff Campos MD PATHOLOGY/CYTOLOGY Final Res ult [facility] [address] [place] [address], [place] * ENDOSCOPY (03/27/2025 8:24 AM CDT) 03/27/2025 8:24 AM CDT Narrative Transcriptions Jeff Campos MD - 03/27/2025 9:11 AM CDT [facility] Patient Name: Trevon Erickson Procedure Date: 03/27/2025 Gender: Male Date of : 1980 Admit Type: Ambulatory Procedure: Upper GI endoscopy Proceduralist: Jeff Campos MD - [facility] Indications/Pre-Op Diagnosis: Heartburn Medications: Fentanyl micrograms IV, Midazolam mg IV Procedure Description: Risk of bleeding, infection, perforation, need for surgery and alternatives discussed. The endoscope [id number] was introduced through the mouth, and advanced to the second part of duodenum. The upper GI endoscopy was accomplished without difficulty. The patient tolerated the procedure well. Complications: No immediate complications. Estimated Blood Loss & Specimen: Minimal Findings: Esophagus - there was no esophagitis. There was a short tongue of columnar lined epithelium, approximately 1 cm in length, extendingjust proximal to the gastric folds, which was biopsied. There was no other columnar lined epithelium identified. The Z-line was at 35 cm. The Endoflip manometry catheter was inserted across the GE junction inthe usual manner and inflated sequentially to 30, 40, 50, and then 60 cc.At 60 cc inflation the balloon diameter is 14.8 mm with a distensibility index of 3.20 There were some RACs seen but decreased in amplitude and number. Stomach - there was a Ghazal wrap which had loosened but was still in good position with no hiatal hernia. Stomach was otherwiseunremarkable. Duodenum - normal. Impressions/Post-Op Diagnosis: Normal GE junction dynamics Decreased esophageal motility although rapid anterior contractionswere identified Short, solitary tongue of columnar lined epithelium; biopsied;otherwise unremarkable esophageal mucosa Intact Ghazal which have loosened Recommendation: Check path Beard in am Trial of Voquezna Jeff Campos MD 03/27/2025 9:11:12 AM This report has been signed electronically. Note Initiated On: 03/27/2025 8:24 AM us Jeff Campos MD PROCEDURE ORD Final Result * LAB TRACKING EVENT (02/02/2025 8:18 AM CDT) Other (Other) Client Collect / Unknown 02/02/2025 8:18 AM CDT 02/02/2025 10:58 PM CDT us Edna Foote MD LAB BILL ONLY Final Resu lt [facility] [address] [place] [address], [place] * SCAN-ENDOSCOPY (02/02/2025 12:00 AM CDT) us Scanner OTHER Final Result * SCAN-CT INTERPRETATION (02/01/2025 12:00 AM CDT) Anatomical Region Laterality Modality Other us Scanner OTHER Final Result * (ABNORMAL) LIPID PANEL W REFLEX MEASURED LDL (03/01/2024 2:22 PM CDT) CHOLESTEROL,TOTAL 257(H) 100 - 199 mg/dL 03/02/2024 12:04 AM CDT [facility] Comment: Cholesterol, Total Reference Ranges Desirable <200 mg/dL Borderline 200-239 mg/dL High >=240 mg/dL TRIGLYCERIDES 303(H) <150 mg/dL 03/02/2024 12:04 AM CDT [facility] HDL CHOLESTEROL 36(L) >40 mg/dL 12:04 AM CDT [facility] NON-HDL CHOLESTEROL 221(H) <145 mg/dl 03/02/2024 12:04 AM CDT [facility] CHOL/HDL RATIO 7.14(H) <4.50 03/02/2024 12:04 AM CDT [facility] LDL CHOLESTEROL 160(H) <=130 mg/dL 03/02/2024 12:04 AM CDT [facility] VLDL CHOLESTEROL 61(H) <=30 mg/dL 03/02/2024 12:04 AM CDT [facility] PROVIDER ORDERED STATUS RANDOM 03/02/2024 12:04 AM CDT [facility] Blood BLOOD SPECIMEN / Unknown Venipuncture / Unknown 03/01/2024 2:22 PM CDT 03/01/2024 2:29 PM CDT us Bessy JOE CHEMISTRY Final [facility]u [facility] [address] [place] [address], [place] * SCAN-COLONOSCOPY (11/10/2023 2:00 PM CDT) Narrative Procedure Note Patrick Lopez MD - 11/10/2023 1:15 PM CDT [facility] [address], [address], [place] [address] Patient Name: Trevon Erickson Gender: Male Exam Date: 11/10/2023 Visit Number: [id number] Age: 42 Years Date of : 1980 Attending MD: Patrick Lopez MD Medical Record#: [id number] Procedure: Colonoscopy Indications: Change in bowel habits [...] bowel habit Diverticulosis of colon without diverticulitis impression comments: Anal nodule, either hypertrophied anal [...] Impression: Altered bowel habits Chronic GERD Melena MD Impression Comments: Normal esophagus. Intact Ghazal wrap. [...] signed by: Edgar Elizabeth MD Interpreted at [facility], [address] [place], [place] [id number] Orders Instruction(s)/Education: Instruction/Education Timeframe Assessment Colon Cancer Prevention R19.4 Diverticulosis/Diverticulitis K57.30 High Fiber Diet K57.30 NSAIDS List K21.9 Final Plan: Repeat colonoscopy in 10 years for screening. If you have signs orsymptoms of lower GI illness or a new diagnosis of colon cancer in animmediate family member, you should contact [facility] or your primary providerto discuss whether your [...] Most Recently Relevant to Health Maintenance Insurance [facility] * Guarantor: ORVILLE OJEDA Account Type Relation to Patient Date of Phone Billing Address [facility] 08/24/[address] [facility] [address] [place] [address] [phone] (Home) [phone] (Work) ATTN KAROLINA CALDWELL [address] [address] [place] [address] Advance Directives * Full Code (Latest Code Status on File) Date Activated Date Inactivated Comments 03/27/2025 7:52 AM 03/27/2025 12:04 PM Question Answer Comments Code Status Discussion: Reviewed Preferences * Full Code Date Activated Date Inactivated Comments 10/21/2023 11:57 [...] Question Answer Comments Code Status Discussion: Discussed Care Teams Professor Of Graphic Design Relationship Specialty Start Date End Date [place] [address] [address] [address] PCP - General Physician Channel Business Manager 11/04/23
--- OUTSIDE RECORDS SUMMARY | 2025-04-16 19:53 | XMS_ITS | Clinical Summary ---
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 Gender Identity Not on file Sexual Orientation Not on file Last Filed Vital Signs Vital Sign Reading Time Taken Comments Blood Pressure 119/77 08/06/2019 3:30 PM TEASEL GIG OPERATOR Pulse 71 08/06/2019 3:30 PM TEASEL GIG OPERATOR Temperature 37.2 C (98.9 F) 08/06/2019 9:44 AM TEASEL GIG OPERATOR Respiratory Rate 18 08/06/2019 3:30 PM TEASEL GIG OPERATOR Oxygen Saturation 99% 08/06/2019 3:30 PM TEASEL GIG OPERATOR Inhaled Oxygen Concentration - - Weight 68.9 kg (151 lb 14.4 oz) 016 10:54 AM TEASEL GIG OPERATOR Height 166.7 cm (5' 5.63) 08/01/2016 1 0:54 AM TEASEL GIG OPERATOR Body Mass Index 24.79 08/01/2016 10:54 AM TEASEL GIG OPERATOR Plan of Treatment Not on file [place] [id number] Care Teams Machine Filler Servicer Relationship Specialty Start Date End Date Donny Botello [address] [place], [place] [phone] [place] [address] PCP - General Family Practice 08/01/16 Unruly Joshi MD [address] [place], [place] [phone] [place], [place] [address] Orthopedics 07/28/16
--- OUTSIDE RECORDS SUMMARY | 2025-04-16 19:53 | XMS_ITS | Clinical Summary ---
Author Organization [facility] Address [address] [place] [address] Care Team Providers Care Meal Miller Name Role Phone Unavailable Primary Care Provider Unavailabl e Source Comments You are receiving this document as you are listed as the primary care provider,follow-up provider, or the patient has been referred to you for consultation.This is in compliance with the Medicare and[facility] Hospitalcaid EHR Incentive Program,which states Providers who transition their patient to another setting of careor provider of care or refers their patient to another provider of care shouldprovide summary care record for each transition of care or referral. [employer] Active Problems Problem Noted Date Diagnosed Date Abdominal distension, gaseous 09/29/2018 Nausea and vomiting 02/06/2018 History of Ghazal fundoplication 02/06/2018 Irritable bowel syndrome 10/18/2017 Pain 07/22/2017 Hypokalemia 07/01/2017 Epigastric pain 07/01/2017 Anxiety and depression 07/01/2017 GERD (gastroesophageal reflux disease) 7 Gastritis and duodenitis 04/03/2017 Acute gastric ulcer without hemorrhage or perfor ation 04/03/2017 Esophagitis, Nye grade C 04/03/2017 Hemiparesis 10/07/2016 Mass of joint of left shoulder 08/01/2016 Shoulder pain 10/05/[address] of the chest Paraesophageal hernia Diarrhea Resolved Problems Problem Noted Date Diagnosed Date Resolved Date Vomiting 01/06/2018 02/06/2018 Depression 02/04/2015 02/06/2018 Immunizations Immunization Administration Dates Next Due Flu Vac (3+ yrs) 09/13/2013,05/16/2009 Fluzone Qiv Multidose Vial 0.25 (6-35 Mos) 06/17 Influenza IIV4 (Quadrivalent) 0.5mL (46734) 05/25,06/25/2017,08/03/2014 Td 02/12/1995 Tdap 03/07/2014 Family History [...] Vaccine (1 - season) 2024 Influenza Vaccine (#1) 2025 8, 06/17/2018, 06/25/2017, Additional history exists Zoster/Shingles Vaccine [...] patient's age to complete this topic Insurance [facility] Advance Directives * Full Code (Latest Code Status on File) Date Activated Date Inactivated Comments 02/04/2015 8:00 AM 02/03/2015 7:00 PM * Full Code Date Activated Date Inactivated Comments 02/04/2015 8:00 AM 02/06/2015 8:24 AM
[2025-04-16 19:57] VITALS: BP 154/97; PULSE 73; RESP 16; TEMP 36.6; O2SAT 98; BMI 29.5
--- NOTE | 2025-04-16 20:24 | CRLHL7_ITS ---
For Patients: As a result of the Century Cures Act, medical imaging exams and procedure reports are released immediately into your electronic medical record. You may view this report before your referring provider. If you have questions, please contact your health care provider. Indication: Lower abdominal pain radiating to right side of back Technique: CT through the abdomen and pelvis following 89 mL Isovue 370 IV contrast Comparison: CT abdomen pelvis performed 02/01/2025 Findings: Lower chest: No acute abnormality appreciated. Hepatobiliary: Hepatic steatosis. No acute abnormality appreciated. Unchanged hepatic cysts. Spleen: Unremarkable. Pancreas: No acute abnormality appreciated. Adrenal glands: No acute abnormality appreciated. Kidneys: No significant parenchymal abnormality appreciated. No visualized calculi. No hydronephrosis. Bowel: No obstruction. No focal perienteric or pericolonic stranding is appreciated. Vascular: No acute abnormality appreciated. Lymph nodes: No gross lymphadenopathy. Peritoneum: No free air. No free fluid. : No acute abnormality appreciated. Soft tissues: No acute abnormality appreciated. Bones: No acute fracture. No lytic or blastic lesion. Impression: Hepatic steatosis, no acute abnormality appreciated. Please note that all CT scans at this facility use dose modulation, iterative reconstruction, and/or weight-based dosing when appropriate to reduce radiation dose to as low as reasonably achievable. Dictated by Gigi Chang MD @ 04/16/2025 9:00:44 PM (Electronically Signed)
[2025-04-16 20:35] VITALS: BP 146/90; PULSE 79; RESP 18; O2SAT 94
[2025-04-16 20:38] LABS: Appearance Urine Clear (Clear)
[2025-04-16 20:39] VITALS: O2SAT 97
[2025-04-16 20:48] LABS: Hematocrit 42.3 % (37.0-53.0); Hemoglobin* 14.5 gm/dL (13.5-17.5); Immature Granulocytes Abs Auto 0.01 K/uL (0.00-0.30); Immature Granulocytes Pct Auto 0.2 %; Lymphocytes Absolute Auto 2.25 K/uL (0.90-2.90); Mean Corpuscular HGB Conc 34 gm/dL (32-36); Mean Corpuscular Hemoglobin 29 pg (26-34); Mean Corpuscular Volume 86 fL (80-100); RDW Coefficient of Variation % 12.6 % (11.5-15.5); Red Blood Count 4.95 m/uL (4.30-5.90); White Blood Count* 5.63 K/uL (4.50-11.00)
[2025-04-16] MEDS: ONDANSETRON 2 MG/ML inj 4 MG IVP (20:48)
[2025-04-16 20:49] LABS: Slide Review Reflex No
[2025-04-16 20:59] LABS: Albumin* 4.2 g/dL (3.3-5.0); Chloride* 106 mmol/L (96-114)
[2025-04-16 21:00] LABS: Potassium* 4.3 mmol/L (3.6-5.1); Sodium* 139 mmol/L (135-149)
[2025-04-16 21:02] LABS: Blood Urea Nitrogen* 15 mg/dL (5-24); Creatinine* 1.1 mg/dL (0.5-1.5); Est. Creatinine Clearance* 75.72; Estimated Glomerular Filt Rate 84 ml/min
[2025-04-16 21:03] LABS: Alanine Aminotransferase* 64 U/L (4-50); Alkaline Phosphatase* 62 U/L (40-150); Anion Gap 5 mEq/L (7-15); Aspartate Amino Transferase* 30 U/L (12-35); Bilirubin Direct* 0.1 mg/dL (0.0-0.5); Bilirubin Total* 0.4 mg/dL (0.1-1.5); Calcium* 9.8 mg/dL (8.4-10.6); Carbon Dioxide* 28 mmol/L (20-32); Glucose* 101 mg/dL (60-115); Total Protein* 7.2 g/dL (6.0-8.3)
[2025-04-16 21:41] VITALS: BP 141/71; PULSE 70; RESP 18; TEMP 36.6; O2SAT 97
--- NOTE | 2025-04-16 21:44 | ED.ABDPAIN ---
HPI - Abdominal Pain General Date Seen: 04/16/25 Chief Complaint: Abdominal Pain Stated Complaint: Lower Abdominal Pain Time Seen by Provider: 04/16/25 19:58 Source: patient Mode of arrival: ambulatory Limitations: no limitations History of Present Illness HPI narrative: Patient is a very nice gentleman, who suffers from chronic reflux, and chronic abdominal pain. Presents here with more acute lower pain, that is new for him. His fries on the right side of his abdomen, with some radiation to his back. He has noted no vomiting but has no history of vomiting with his Ghazal procedure that he has had, she felt a little bit of nausea, but says that is also common farm he has had no fevers or chills denies no dysuria frequency is had 3 stools today, which is not abnormal for him, he has a history of Campylobacter in the past and thinks this may be somewhat early for that. Recently met with his GI doctor and had scope done, which was pronounced pretty good, he met with Dr. Mora his primary care physician and they are going to do what sounds like manometry. Worried that he may have appendicitis as he is far as he knows he still has this. Has not been taking any Tylenol or ibuprofen or anything else. Very reasonable gentleman elicited complaint: abdominal pain Pertinent past history: other Onset (ago): day(s) Pain Consistency: constant Location: R flank Severity: moderate Quality: cramping, stabbing and aching Radiation: R flank Migration to: RLQ and R flank Exacerbating factors: nothing Relieving factors: nothing Associated symptoms: nausea Related Data Home Medications ?Medication ?Instructions ?Recorded ?Confirmed sucralfate 1 gram tablet 1 g PO QID 10/24/24 02/21/25 escitalopram oxalate 10 mg tablet 10 mg PO DAILY 02/02/25 02/21/25 pantoprazole 40 mg tablet,delayed 40 mg PO 02/21/25 02/21/25 release Previous Rx's ?Medication ?Instructions ?Recorded nortriptyline 10 mg capsule 10 mg PO QHS #30 caps 02/03/25 ondansetron 4 mg disintegrating 4 mg PO Q6H PRN nausea and 02/03/25 tablet vomiting #30 tabs metoclopramide HCl 10 mg tablet 10 mg PO Q6H PRN nausea and 07/01/25 (Reglan) vomiting #30 tabs Allergies Allergy/AdvReac Type Severity Reaction Status Date / Time No Known Drug Allergies Allergy Verified 02/21/25 15:00 Review of Systems Status of ROS Reports: 10 or more systems reviewed and unremarkable except as noted in History and below [facility] Medical History Functional dyspepsia ?K30 - Functional dyspepsia (ICD-10) Gastroparesis ?K31.84 - Gastroparesis (ICD-10) Liver masses ?R16.0 - Hepatomegaly, not elsewhere classified (ICD-10) Hepatic steatosis ?K76.0 - Fatty (change of) liver, not elsewhere classified (ICD-10) Early satiety ?R68.81 - Early satiety (ICD-10) Pulmonary nodule ?R91.1 - Solitary pulmonary nodule (ICD-10) Mass of joint of left shoulder ?M25.812 - Other specified joint disorders, left shoulder (ICD-10) Gastritis and duodenitis ?K29.90 - Gastroduodenitis, unspecified, without bleeding (ICD-10) Esophagitis, [place] grade C ?K20.80 - Other esophagitis without bleeding (ICD-10) Chronic abdominal pain ?R10.9 - Unspecified abdominal pain (ICD-10) ?G89.29 - Other chronic pain (ICD-10) Peptic ulcer ?K27.9 - Peptic ulcer, site unspecified, unspecified as acute or chronic, without hemorrhage or perforation (ICD-10) Paraesophageal hernia ?K44.9 - Diaphragmatic hernia without obstruction or gangrene (ICD-10) Nausea and vomiting (02/06/18) ?R11.2 - Nausea with vomiting, unspecified (ICD-10) Irritable bowel syndrome (10/18/17) ?K58.9 - Irritable bowel syndrome without diarrhea (ICD-10) Gastroesophageal reflux disease ?K21.9 - Gastro-esophageal reflux disease without esophagitis (ICD-10) Anxiety and depression (07/01/17) ?F41.9 - Anxiety disorder, unspecified (ICD-10) ?F32.A - Depression, unspecified (ICD-10) Surgical History H/O circumcision ?Z98.890 - Other specified postprocedural states (ICD-10) History of tonsillectomy (1985) ?Z90.89 - Acquired absence of other organs (ICD-10) History of repair of hiatal hernia (2017) ?Z98.890 - Other specified postprocedural states (ICD-10) ?Z87.19 - Personal history of other diseases of the digestive system (ICD-10) History of Ghazal fundoplication (02/06/18) ?Z98.890 - Other specified postprocedural states (ICD-10) History of esophagogastroduodenoscopy (EGD) ?Z98.890 - Other specified postprocedural states (ICD-10) History of colonoscopy ?Z98.890 - Other specified postprocedural states (ICD-10) Family History Mother Heart disease Father Heart disease Maternal Grandmother Stomach cancer Grandmother Diabetes Social History Narrative: Single, no kids, 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 [employer], Non-smoker, Social EtOH, denies recreational drug use What is your current living situation?: I presently have a place to live Problems where you live: no known problems Problems where you live details: N/A In the past 12 months, utilities in danger of being shut off: no In past 12 months, lack of transportation kept you from medical appts, meetings, work, or getting things needed for daily living: no In the past 12 mos, have been you worried that your food would run out before you had money to buy more?: never true In the past 12 mos, the food you bought just didn't last and you didn't have money to buy more?: never true Smoking Status: Never smoker Second hand tobacco smoke exposure: No How often do you have a drink containing alcohol: monthly or less How often do you have six or more drinks on one occasion: Never AUDIT-C Alcohol total score: 1 Non-prescribed substance use: denies use How often does anyone, including family, friends and others, physically hurt you: never How often does anyone, including family, friends and others, insult or talk down to you: never How often does anyone, including family, friends and others, threaten you with harm: never How often does anyone, including family, friends and others, scream or curse at you: never service: No Exam Narrative: Exam Narrative: On examination he appears to be in no apparent distress, seen in room 7, pupils equal round reactive to light there is no scleral icterus redness is TMs bilaterally normal his oropharynx is normal there is no adenopathy anterior posterior chains, chest is good air entry bilateral with no wheezing crackles noted, heart sounds are normal as abdomen shows some Shannon mild tenderness in the right lower quadrant and right side, he does not have a positive Vazquez's test, there is no CVA tenderness noted, bowel sounds are normal throughout all quadrants I do not detect any masses, there is no groin all hernias, normal male genitalia. Moves all extremities independently well, absence of any rashes are noted, no edema, normal pulses. Const: Vital Signs, click to edit/add: Vital Signs - 24 hr 04/16/25 19:57 04/16/25 20:35 04/16/25 20:39 Temperature 97.9 F Pulse Rate 79 Pulse Rate [Pulse Oximeter] 73 Respiratory Rate 16 18 Blood Pressure 146/90 H Blood Pressure [Ri ght Upper Arm] 154/97 H Pulse Oximetry 98 94 97 Oxygen Delivery Me thod Room Air 04/16/25 21:41 Temperature 97.9 F Pulse Rate Pulse Rate [Pulse Oximeter] 70 Respiratory Rate 18 Blood Pressure Blood Pressure [Ri ght Upper Arm] 141/71 H Pulse Oximetry 97 Oxygen Delivery Me thod Room Air Documenting provider has reviewed patient's vital signs: yes Course Course ED Course: I discussed with the patient, that do not see anything acute with either is lab tests or CT was very reassured by this, I do suggest that he call his primary care physician Dr. Mora in the morning, and see if he has any other suggested former specially if it is ongoing discomfort of course if he has worsening pain fevers chills worsening nausea diarrhea then to come back as sometimes really infections can present like this with normal testing and he needs to remain vigilant. He was comfortable with this plan. Vital Signs Vital signs: Initial Vital Signs Temperature 97.9 F 04/16/25 19:57 Temperature Source Temporal Artery Scan 04/16/25 19:57 Pulse Rate 73 04/16/25 19:57 Respiratory Rate 16 04/16/25 19:57 Blood Pressure 154/97 H 04/16/25 19:57 Blood Pressure Mean 116 H 04/16/25 19:57 Blood Pressure Position Sitting 04/16/25 19:57 Pulse Oximetry 98 04/16/25 19:57 Oxygen Delivery Method Room Air 04/16/25 19:57 Vital Signs Temperature 97.9 F 04/16/25 19:57 Pulse Rate 73 04/16/25 19:57 Respiratory Rate 16 04/16/25 19:57 Blood Pressure 154/97 H 04/16/25 19:57 Pulse Oximetry 98 04/16/25 19:57 Oxygen Delivery Method Room Air 04/16/25 19:57 Temperature 97.9 F 04/16/25 21:41 Pulse Rate 70 04/16/25 21:41 Respiratory Rate 18 04/16/25 21:41 Blood Pressure 141/71 H 04/16/25 21:41 Pulse Oximetry 97 04/16/25 21:41 Oxygen Delivery Method Room Air 04/16/25 21:41 Medications Administered Medications: Generic Name Dose Route Start Last Admin Trade Name Freq PRN Reason Stop Dose Admin Ondansetron HCl 4 mg 04/16/25 20:47 04/16/25 20:48 Ondansetron 2 Mg/Ml Inj IVP 4 mg ONCE PRN Administration Discontinued Medications Generic Name Dose Route Start Last Admin Trade Name Freq PRN Reason Stop Dose Admin Sodium Chloride 1,000 mls @ 1,000 mls/hr 04/16/25 20:30 04/16/25 21:41 0.9 % Sodium Chloride 1000 Ml IV 04/16/25 21:29 Infused .Q1H JAVIER Infusion MDM - Abdominal Pain MDM Narrative Medical decision making narrative: During this evaluation of this patient I considered multiple differential diagnosis is which included the life-threatening such as appendicitis, aortic aneurysm, mesenteric ischemia, bowel perforation, volvulus, and bowel obstruction. Other differential diagnosis is include but are not limited to cholecystitis, pancreatitis, hepatitis, gastritis, GERD, diverticulitis, peptic ulcer disease, pyelonephritis/UTI, renal colic/stone, testicular torsion as well as other acute scrotal processes, inflammatory bowel disease, as well as other etiologies Differential Diagnosis Differential diagnosis: Likely abdominal pain, acute appendicitis, calculus of kidney, constipation, diverticulitis, gastroenteritis, pancreatitis and small bowel obstruction Medical Records Attestation: I reviewed the patient's medical records. Lab Data Attestation: I reviewed the patient's lab results. Labs: Lab Results 04/16/25 Range/Units 20:30 WBC 5.63 (4.50-11.00) K/uL RBC 4.95 (4.30-5.90) m/uL Hgb 14.5 (13.5-17.5) gm/dL Hct 42.3 (37.0-53.0) % MCV 86 (80-100) fL MCH 29 (26-34) pg MCHC 34 (32-36) gm/dL RDW Coeff of Lizzette 12.6 (11.5-15.5) % Plt Count 180 (140-440) K/uL Neut % (Auto) 47.4 (42.0-72.0) % Lymph % (Auto) 40.0 (20-44) % [place] % (Auto) 9.2 (0.0-11.0) % Eos % (Auto) 2.5 (0.0-7.0) % Baso % (Auto) 0.7 (0.0-3.0) % Neut # (Auto) 2.67 (1.7-7.0) K/uL Lymph # (Auto) 2.25 (0.90-2.90) K/uL [place] # (Auto) 0.50 (0.00-0.90) K/UL Eos # (Auto) 0.14 (0.00-0.50) K/uL Baso # (Auto) 0.04 (0.00-0.30) K/uL Abs Immat Gran (auto) 0.01 (0.00-0.30) K/uL Imm/Tot Granulo (auto) 0.2 % Sodium 139 (135-149) mmol/L Potassium 4.3 (3.6-5.1) mmol/L Chloride 106 (96-114) mmol/L Carbon Dioxide 28 (20-32) mmol/L Anion Gap 5 L (7-15) mEq/L BUN 15 (5-24) mg/dL Creatinine 1.1 (0.5-1.5) mg/dL Estimated Creat Clear 75.72 Estimated GFR 84 ml/min Glucose 101 (60-115) mg/dL Calcium 9.8 (8.4-10.6) mg/dL Total Bilirubin 0.4 (0.1-1.5) mg/dL Direct Bilirubin 0.1 (0.0-0.5) mg/dL AST 30 (12-35) U/L ALT 64 H (4-50) U/L Alkaline Phosphatase 62 (40-150) U/L C-Reactive Protein < 0.5 L (0.5-1.0) mg/dL Total Protein 7.2 (6.0-8.3) g/dL Albumin 4.2 (3.3-5.0) g/dL Amylase 74 (18-89) U/L Lipase 199 (23-300) U/L Urine Color Yellow (Yellow) Urine Appearance Clear (Clear) Urine pH 7.0 (5.0-8.5) Ur Specific [place] 1.020 (1.000-1.030) Urine Protein Negative (Negative) Urine Glucose (UA) Negative (Negative) Urine Ketones Negative (Negative) Urine Blood Negative (Negative) Urine Nitrite Negative (Negative) Urine Bilirubin Negative (Negative) Urine Urobilinogen 0.2 (0.2-1.0) Ur Leukocyte Esterase Negative (Negative) Urine RBC 0-2 (0-2) Urine WBC 0-2 (0-5) Ur Squamous Epith Cells Few (None-Few) Urine Bacteria None (None) Imaging Data CT scan - abdomen: Attestation: I have reviewed the pertinent imaging results. My impression: I do not see anything acute here. Radiologist's impression: [place] [address] Diagnostic Imaging Report Patient: Trevon Erickson MR#: [id number] : 1980 Acct:[id number] Loc: ED Service Date: 04/16/[address]: Ordering Physician: Aj Estes M.D. Date of Service: 04/16/25 Procedure(s): CT abdomen pelvis w con Accession Number(s): [id number] cc: Trevon Mora M.D.; Aj Estes M.D.~ For Patients: As a result of the Cures Act, medical imaging exams and procedure reports are released immediately into your electronic medical record. You may view this report before your referring provider. If you have questions, please contact your health care provider. Indication: Lower abdominal pain radiating to right side of back Technique: CT through the abdomen and pelvis following 89 mL Isovue 370 IV contrast Comparison: CT abdomen pelvis performed 02/01/2025 Findings: Lower chest: No acute abnormality appreciated. Hepatobiliary: Hepatic steatosis. No acute abnormality appreciated. Unchanged hepatic cysts. Spleen: Unremarkable. Pancreas: No acute abnormality appreciated. Adrenal glands: No acute abnormality appreciated. Kidneys: No significant parenchymal abnormality appreciated. No visualized calculi. No hydronephrosis. Bowel: No obstruction. No focal perienteric or pericolonic stranding is appreciated. Vascular: No acute abnormality appreciated. Lymph nodes: No gross lymphadenopathy. Peritoneum: No free air. No free fluid. : No acute abnormality appreciated. Soft tissues: No acute abnormality appreciated. Bones: No acute fracture. No lytic or blastic lesion. Impression: Hepatic steatosis, no acute abnormality appreciated. Please note that all CT scans at this facility use dose modulation, iterative reconstruction, and/or weight-based dosing when appropriate to reduce radiation dose to as low as reasonably achievable. Dictated by Gigi Chang MD @ 04/16/2025 9:00:44 PM (Electronically Signed) Discharge Plan Discharge Clinical Impression: Chronic abdominal pain Patient Disposition: Home, Self-Care Condition: Stable Instructions: Abdominal Pain (ED), Chronic Abdominal Pain (DC) Additional Instructions: Tonight you CT scan was normal, there is no evidence of anything significantly bad, no colitis diverticulitis appendicitis or anything else, if this is early issue like you had last time it may be beneficial to speak to Dr. Mora and decide whether not you want to do stool studies. Nevertheless increasing abdominal pain fevers chills diarrhea or other issues then please come back and be seen. I am reassured tonight with a blood tests also Activity Level: Light activity Prescriptions: No Action pantoprazole 40 mg tablet,delayed release (DR/EC) 40 mg PO metoclopramide HCl [Reglan] 10 mg tablet 10 mg PO Q6H PRN (Reason: nausea and vomiting) Qty: 30 1RF sucralfate 1 gram tablet 1 g PO QID escitalopram oxalate 10 mg tablet 10 mg PO DAILY ondansetron 4 mg tablet,disintegrating 4 mg PO Q6H PRN (Reason: nausea and vomiting) Qty: 30 0RF nortriptyline 10 mg capsule 10 mg PO QHS Qty: 30 2RF Follow Up/Referrals: Trevon Mora MD [Primary Care Provider, Family Practice] Stand Alone Forms: MyHealth Info Instructions
[2025-04-16 21:45] VITALS: BP 141/71; PULSE 70; RESP 18; TEMP 36.6
[2025-04-16 21:48] VITALS: BP 122/82; PULSE 80; RESP 18
== END 2025-04-16 21:49 | disposition home or self-care (01) ==
PROVIDERS: Emergency Provider Family Medicine; PCP Family Medicine
DX: R10.31 Right lower quadrant pain (principal)
CPT/HCPCS: 36415; 74177; 80048; 80076; 81001; 82150; 83690; 85025; 86140; 94761; 96374; 99284; J2405; J7030; Q9967

== ENCOUNTER 2025-05-30 08:37 | Outpatient (CLI) | payer MEDICAID, SELFPAY | END 2025-05-30 08:38 | disposition home or self-care (01) | PROVIDERS: PCP Family Medicine; Visit Provider Family Medicine | DX: K21.9 Gastro-esophageal reflux disease without esophagitis (principal); R19.7 Diarrhea, unspecified | CPT/HCPCS: 80053; 83690; 83993; 85025; 86140; 87507 ==

== ENCOUNTER 2025-06-14 08:47 | Outpatient (CLI) | payer MEDICAID, SELFPAY ==
--- NOTE | 2025-06-14 09:15 | CRLHL7_ITS ---
For Patients: As a result of the Century Cures Act, medical imaging exams and procedure reports are released immediately into your electronic medical record. You may view this report before your referring provider. If you have questions, please contact your health care provider. INDICATION: SEVERE GERD AND MOTILITY ISSUES TECHNIQUE: Modified barium swallow. Fluoroscopic time 42 seconds. FINDINGS/IMPRESSION: Anatomical structures are normal. Swallowing mechanism appears within normal limits. No episodes of penetration or aspiration. No significant findings. Dictated by Trevon Rosa MD @ 06/14/2025 10:59:34 AM (Electronically Signed)
--- NOTE | 2025-06-14 11:14 | SLP.MBS ---
PROSTHETIC ASSISTANT Modified Barium Swallow PROSTHETIC ASSISTANT Modified Barium Swallow Eval Start: 06/14/25 08:47 Text: Status: Active Freq: Protocol: Document 06/14/25 08:48 PHOEBE (Rec: 06/14/25 09:51 PHOEBE [id number]) E-signed By Alfie Horton, PROSTHETIC ASSISTANT Modified Barium Swallow Evaluation Evaluation Reason for Referral Swallowing difficulty Medical Diagnosis GERD K21.9 Treatment Diagnosis Dysphagia R13.10 Date of Order 06/01/25 Type of Referral Evaluation Onset of Patient's Worse over the past month. Problem Pertinent Medical Per provider, The patient presents for evaluation of History severe GERD with Sears's esophagus, esophageal dysmotility, and possible functional dyspepsia. He has been experiencing a persistent dry cough, which has worsened over the past week. This is accompanied by a burning sensation and difficulty in clearing mucus from his throat. He also reports that food particles often get lodged in his throat, causing discomfort. His acid reflux has escalated to the point where he experiences regurgitation and vomiting, even with the use of anti- nausea medication. His symptoms have become so severe that he struggles to consume food or drink. He had an episode of hematemesis two nights ago, where he coughed up blood mixed with mucus. His sleep is significantly disrupted due to these symptoms. He expresses satisfaction with the care he is receiving at [facility], noting that it is superior to his previous treatment at [facility]. He is currently on Aciphex 20 mg twice daily. He is unsure if he is still taking nortriptyline 10 mg, as he does not recall the reason for its prescription. He reports no headaches. He has not yet completed the stool studies. Medications Aciphex 20 mg twice daily Hearing Status WNL Vision Status Glasses Subjective/Pain Trevon complains of food particles getting lodged in his Comment throat which causes coughing and increased phlegm. Assessment/ Trevon is a 44-year-old male with history of Impressions uncontrolled GERD with complains of food particles getting lodged in the back of his throat causing coughing and increased phlegm. A video swallow study was completed per provider orders. Under fluoroscopy, patient presents with a normal oropharyngeal swallow. Patient has GERD but also has many symptoms of laryngopharyngel reflux (LPR). Oral mech exam was unremarkable. Oral phase of the swallow remains intact with good bolus control, timely A/P movement and no oral residue. Pharyngeal phase of the swallow intact with no penetration or aspiration although patient did cough during solid trial that was not related to any penetration or aspiration. A slight CP bar was noted but did not impact the flow of the bolus into the esophagus. Recommend a Regular diet with thin liquids. Safe swallow strategies include upright for all po, small bites at a slow rate, and small single sips. Reflux precautions include stay upright for one hour after meals with no bending over, smaller more frequent meals, eat last meal three hours before bedtime, and elevate head of bed 4-6 inches. Patient was provided educational handouts on GERD/LPR and managing reflux. No further speech therapy indicated. Goals/Functional Trevon will verbalize understanding of today's results Outcomes and recommendations. Goal met. Mod Barium Swallow-Lat View Textures Lateral View Food Thin: IDDSI Level 0,Pureed,Regular Presentation Oral Phase Labial Closure No Impairment (WFL) Bolus Formation No Impairment (WFL) Pooling L/R Bolus Formation No Impairment (WFL) under Tongue Bolus Formation No Impairment (WFL) Scattered Loss Mastication Rotary No Impairment (WFL) Chew Mastication Munching No Impairment (WFL) Mastication No Impairment (WFL) Lateralization A/P Lingual No Impairment (WFL) Propulsion Spills A/P Lingual No Impairment (WFL) Propulsion Delay Lingual Movement No Impairment (WFL) Residue Clearing No Impairment (WFL) Pharyngeal Phase Swallow Response No Impairment (WFL) Delay Base of Tongue No Impairment (WFL) Epiglottic Coverage No Impairment (WFL) Laryngeal Elevation No Impairment (WFL) Vallecular Retention No Impairment (WFL) Clearing Pharyn. Wall Residue No Impairment (WFL) Clearing Piriform Sinus No Impairment (WFL) Retention Other Pharyngeal Noted a slight CP bar that did not impact the flow of Phase Observation the bolus. Mod Barium Swallow Impressions Summary and Impressions Oral Phase No Impairment (WFL) Impression Oral Phase Summary Lip closure for intraoral bolus containment and tongue control during bolus hold were functional. Bolus preparation and mastication demonstrated functional. Bolus transport/lingual motion was adequate for liquids and solids. There was no oral residue collected along oral structures. Initiation of the pharyngeal swallow occurred as the bolus head was at the posterior ramus of the mandible with liquids and the valleculae with solids. Soft palate elevation was adequate with no trace column of contrast or air between the soft palate and the pharyngeal wall. Pharyngeal Phase No Impairment (WFL) Impression Pharyngeal Phase Laryngeal elevation was adequate. Anterior hyoid Summary excursion demonstrated adequate movement. Epiglottic movement resulted in full inversion. Laryngeal vestibular closure was adequate, resulting in no column of air/contrast within the laryngeal vestibule at the height of the swallow. Pharyngeal stripping wave was present and adequate. Pharyngeal contraction resulted in adequate clearing. Pharyngoesophageal segment opening demonstrated a slight CP bar, with no obstruction of bolus flow. Tongue base retraction allowed a minimal column of contrast or air between the retracted tongue base and the posterior pharyngeal wall. Pharyngeal residue was none of contrast within or on pharyngeal structures. Barium Swallow Recommendations Diet Dietary Regular,Thin Liquids Recommendations Treatment/Strategies Strategy/Precaution Small Bites and Sips,Alternate Liquids/Solids Recommend Modified Barium Swallow Education Education Topics Teaching Recipient Patient Teaching Methods Verbal,Written Response to Teaching Verbalize Understanding Therapist Signature/ Alfie Horton MS [facility]-PROSTHETIC ASSISTANT #[id number] License Number Speech/Language Pathology Billing Units Billing Units Eval Swallow Motion 1 Fluoro
== END 2025-06-14 08:48 | disposition home or self-care (01) ==
LOC: RAD 08:48
PROVIDERS: PCP Family Medicine; Visit Provider Family Medicine
DX: K21.9 Gastro-esophageal reflux disease without esophagitis (principal); K30 Functional dyspepsia
CPT/HCPCS: 74230; 92611